=== PATIENT | male | born 1970 | race Two or more races ===

== ENCOUNTER 2016-12-02 14:27 | Inpatient (IN) | payer MEDICAID, OTHER ==
[~2016-12-02] VITALS: Ht 167.6 cm; Wt 78.0 kg
[2016-12-02] VITALS (17 sets, daily range): BP systolic 91–116; BP diastolic 37–53; PULSE 78–97; RESP 13–29; TEMP 97.4–98; O2SAT 78–99
[2016-12-02] MEDS ORDERED: SODIUM CHLOR 0.9% 1000 ML INJ 1,000 ML IV SCH (14:55)
[2016-12-02] MEDS ORDERED: SODIUM CHLORIDE 0.9% FLUSH 10 ML FLUSH IVF PRN (15:00)
[2016-12-02 15:03] LABS: AUTOMATED NEUTROPHIL # 15.8 TH/MM3 (1.8-7.7); BASOPHIL # 0.1 TH/MM3 (0-0.2); BASOPHIL % 0.4 % (0.0-2.0); EOSINOPHIL # 0.2 TH/MM3 (0-0.4); EOSINOPHIL % 1.3 % (0.0-4.0); HEMATOCRIT 22.3 % (39.0-51.0); LYMPH % 7.4 % (9.0-44.0); LYMPHOCYTE # 1.4 TH/MM3 (1.0-4.8); MEAN CELL VOLUME 108.1 FL (80.0-100.0); MEAN CORPUSCULAR HEMOGLOBIN 37.2 PG (27.0-34.0); MEAN CORPUSCULAR HGB CONC 34.3 % (32.0-36.0); MONO % 7.5 % (0.0-8.0); NEUT % 83.4 % (16.0-70.0); PLATELET COUNT 253 TH/MM3 (150-450); RED BLOOD COUNT 2.06 MIL/MM3 (4.50-5.90); RED CELL DISTRIBUTION WIDTH 16.2 % (11.6-17.2); WHITE BLOOD COUNT 18.9 TH/MM3 (4.0-11.0)
--- NOTE | 2016-12-02 15:05 | PD ---
HPI Chief Complaint: GI Complaint Time Seen by Provider: 14:55 Travel History International Travel<30 days: No Contact w/Intl Traveler<30days: No Traveled to known affect area: No History of Present Illness HPI Patient presents with complaints of right red blood per rectum which intermittently has occurred over the last 3 years however the last 3 weeks it is been more persistent. Reports loose stools 6-7 bowel movements per day. Reports approximately a half a cup of bright red blood with each bowel movement. Reports systolic blood pressure dropped 30 points in the last 4 days Denies any nausea or vomiting. Denies any chest pain or shortness breath. States he has not urinated in over a week. Reports he has not seen a physician over 10 years. Admits to 2 alcoholic beverages prior to bed each evening. 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 PFSH Past Medical History Medical History: Denies Significant Hx Tetanus Vaccination: > 5 Years Influenza Vaccination: No Social History Alcohol Use: Yes (1-2 BEERS DAILY) Tobacco Use: Yes (3 CIG DAILY) Substance Use: No Allergies-Medications (Allergen,Severity, Reaction): Coded Allergies: No Known Allergies (Unverified , 12/02/16) Reported Meds & Prescriptions Reported Meds & Active Scripts Active No Active Prescriptions or Reported Medications Review of Systems General / Constitutional: No: Fever Eyes: No: Visual changes HENT: No: Headaches Cardiovascular: No: Chest Pain or Discomfort Respiratory: No: Shortness of Breath Gastrointestinal: Positive: Diarrhea, Hematochezia, No: Abdominal Pain Genitourinary: No: Dysuria Musculoskeletal: No: Pain Skin: No Rash Neurologic: No: Weakness Psychiatric: No: Depression Endocrine: No: Polydipsia Hematologic/Lymphatic: No: Easy Bruising Physical Exam Narrative GENERAL: Well-nourished, well-developed patient. SKIN: Focused skin assessment warm/dry. HEAD: Normocephalic. EYES: No scleral icterus. No injection or drainage. Jaundice NECK: Supple, trachea midline. No JVD or lymphadenopathy. CARDIOVASCULAR: Regular rate and rhythm without murmurs, gallops, or rubs. RESPIRATORY: Breath sounds equal bilaterally. No accessory muscle use. GASTROINTESTINAL: Abdomen soft, distended, no hepatosplenomegaly appreciated questionable fluid wave MUSCULOSKELETAL: No cyanosis, or edema. BACK: Nontender without obvious deformity. No CVA tenderness. Hemoccult positive Data Data Last Documented VS Vital Signs Date Time Temp Pulse Resp B/P Pulse Ox O2 Delivery O2 Flow Rate FiO2 12/02/16 14:55 96 Room Air 12/02/16 14:44 92 109/43 12/02/16 14:30 97.8 16 Orders Complete Blood Count With Diff (12/02/16 14:48) Comprehensive Metabolic Panel (12/02/16 14:48) Urinalysis - C+S If Indicated (12/02/16 14:48) Iv Access Insert/Monitor (12/02/16 14:48) Oximetry (12/02/16 14:48) Lipase (12/02/16 14:48) Ammonia (12/02/16 14:55) Prothrombin Time / Inr (Pt) (12/02/16 14:55) Type And Screen (12/02/16 14:55) Ecg Monitoring (12/02/16 14:55) Urinary Catheter Insert/Apply (12/02/16 14:55) Sodium Chlor 0.9% 1000 Ml Inj (Ns 1000 M (12/02/16 14:55) Sodium Chloride 0.9% Flush (Ns Flush) (12/02/16 15:00) NPO (12/02/16 14:55) Alcohol (Ethanol) (12/02/16 14:55) Potassium Chloride Eff (K-Lyte Cl Eff) (12/03/16 09:00) Ct Abd/Pel W/O Iv Contrast (12/02/16 14:55) Sodium Chlor 0.9% 250 Ml Inj (Ns 250 Ml (12/02/16 15:45) Diphenhydramine (Benadryl) (12/02/16 15:45) Acetaminophen (Tylenol) (12/02/16 15:45) Red Blood Cells (Rbc) (12/02/16 15:42) Blood Product Administration .UPON TRANSFUSION (12/02/16 15:42) Sodium Chlor 0.9% 250 Ml Inj (Ns 250 Ml (12/02/16 15:45) Potassium Chloride (Kcl) (12/02/16 15:45) Ondansetron Inj (Zofran Inj) (12/02/16 16:00) Labs Laboratory Tests Test 12/02/16 12/02/16 12/02/16 14:55 15:05 15:35 White Blood Count 18.9 TH/MM3 Red Blood Count 2.06 MIL/MM3 Hemoglobin 7.7 GM/DL Hematocrit 22.3 % Mean Corpuscular Volume 108.1 FL Mean Corpuscular Hemoglobin 37.2 PG Mean Corpuscular Hemoglobin 34.3 % Concent Red Cell Distribution Width 16.2 % Platelet Count 253 TH/MM3 Mean Platelet Volume 8.2 FL Neutrophils (%) (Auto) 83.4 % Lymphocytes (%) (Auto) 7.4 % Monocytes (%) (Auto) 7.5 % Eosinophils (%) (Auto) 1.3 % Basophils (%) (Auto) 0.4 % Neutrophils # (Auto) 15.8 TH/MM3 Lymphocytes # (Auto) 1.4 TH/MM3 Monocytes # (Auto) 1.4 TH/MM3 Eosinophils # (Auto) 0.2 TH/MM3 Basophils # (Auto) 0.1 TH/MM3 CBC Comment DIFF FINAL Differential Comment Prothrombin Time 20.6 SEC Prothromb Time International 1.8 RATIO Ratio Sodium Level 119 MEQ/L Potassium Level 2.9 MEQ/L Chloride Level 84 MEQ/L Carbon Dioxide Level 19.6 MEQ/L Anion Gap 15 MEQ/L Blood Urea Nitrogen 34 MG/DL Creatinine 3.30 MG/DL Estimat Glomerular Filtration 20 ML/MIN Rate Random Glucose 106 MG/DL Calcium Level 7.2 MG/DL Protein Corrected Calcium 7.8 MG/DL Total Bilirubin 17.9 MG/DL Aspartate Amino Transf 122 U/L (AST/SGOT) Alanine Aminotransferase 48 U/L (ALT/SGPT) Alkaline Phosphatase 134 U/L Total Protein 6.0 GM/DL Albumin 1.6 GM/DL Lipase 552 U/L Ethyl Alcohol Level LESS THAN 3 MG/DL Ammonia 16 MCMOL/L Urine pH 5.5 Urine Protein TRACE mg/dL Urine Glucose (UA) NEG mg/dL Urine Ketones NEG mg/dL Urine Occult Blood LARGE Urine Nitrite NEG Urine Bilirubin LARGE Urine Leukocyte Esterase NEG MDM Medical Decision Making Medical Screen Exam Complete: Yes Emergency Medical Condition: Yes Differential Diagnosis Liver failure, renal failure, GI bleed, small bowel obstruction Narrative Course Assessment and plan discussed with patient at bedside. Initial labs reveal a white count of 18,000 with a hemoglobin and hematocrit of 7.7 and 22.3. Platelet normal at 253 ammonia levels and alcohol levels were normal. Hyponatremia and hypokalemia were noted with renal failure/BUN and creatinine of 34 and 3.3. Potassium was replaced. Patient is receiving normal saline. Unsure of duration of hyponatremia. Ultrasound reveals approximately 350 cc within the bladder. Patient was catheterized with urinary return, well concentrated. Blood transfusion initiated. Physician Communication Physician Communication Case discussed and care transferred to Dr. Etienne Scripts No Active Prescriptions or Reported Meds Jeremiah Thomas MD Dec 02, 2016 15:05
[2016-12-02 15:09] LABS: HEMO FLAGS DIFF FINAL
[2016-12-02 15:17] LABS: INTERNATIONAL NORMALIZED RATIO 1.8 RATIO; PROTHROMBIN TIME - PATIENT 20.6 SEC (9.8-11.6)
[2016-12-02 15:19] LABS: ALT (GPT) 48 U/L (12-78); ANION GAP 15 MEQ/L (5-15); AST (GOT) 122 U/L (15-37); BICARBONATE 19.6 MEQ/L (21.0-32.0); BLOOD UREA NITROGEN 34 MG/DL (7-18); CHLORIDE 84 MEQ/L (98-107); GLOMERULAR FILTRATION RATE 20 ML/MIN (>89)
[2016-12-02 15:21] LABS: POTASSIUM 2.9 MEQ/L (3.5-5.1); SODIUM (NA) 119 MEQ/L (136-145)
[2016-12-02 15:24] LABS: ALKALINE PHOSPHATASE 134 U/L (45-117); CALCIUM-PROTEIN CORRECTED 7.8 MG/DL (8.5-10.1); TOTAL BILIRUBIN ADULT 17.9 MG/DL (0.2-1.0)
[2016-12-02] MEDS ORDERED: diphenhydrAMINE HCL 25 MG CAP PO ONE (15:45)
[2016-12-02] MEDS ORDERED: SODIUM CHLOR 0.9% 250 ML INJ 250 ML IV ONE ×2 (15:45)
[2016-12-02] MEDS ORDERED: POTASSIUM CHLORIDE 20 MEQ CONTROLLED RELEASE TAB PO ONE (15:45)
[2016-12-02] MEDS ORDERED: ACETAMINOPHEN 325 MG TAB PO ONE (15:45)
[2016-12-02 15:46] LABS: BLOOD, URINE LARGE (NEG); GLUCOSE,URINE NEG (NEG); KETONE, URINE NEG (NEG); NITRITE,URINE NEG (NEG); PH, URINE 5.5 (5.0-8.5)
[2016-12-02 15:48] LABS: METHOD OF COLLECTION CLEAN CATCH; URINE COLOR DARK-YELLOW (YELLW/STRAW)
[2016-12-02] MEDS ORDERED: ONDANSETRON HCL 4 MG/2 ML VIAL IV PUSH ONE (16:00)
[2016-12-02 16:04] LABS: COMMENT (UR) CULT NOT INDICATED; CULTURE IF INDICATED CULT NOT INDICATED
--- NOTE | 2016-12-02 16:07 | RADHPO ---
EXAM DATE/TIME: 12/02/2016 15:43 [facility] COMPARISON: No previous studies available for comparison. INDICATIONS : Blood in stool and difficulty urinating for one week wth abdominal pain. ORAL CONTRAST: No oral contrast ingested. RADIATION DOSE: 15.22 CTDIvol (mGy) MEDICAL HISTORY : None SURGICAL HISTORY : None. ENCOUNTER: Initial ACUITY: 1 week PAIN SCALE: 4/10 LOCATION: lower quadrant abdomen/pelvis TECHNIQUE: Volumetric scanning of the abdomen and pelvis was performed. Using automated exposure control and ad justment of the mA and/or kV according to patient size, radiation dose was kept as low as reasonably achievable to obtain optimal diagnostic quality images. FINDINGS: LOWER LUNGS: The visualized lower lungs are clear. LIVER: Heterogeneous appearance. There is no dilation of the biliary tree. Layering small calcified gallsto sheela. Large amount of abdominal ascites. Varices left upper quadrant. SPLEEN: Normal size without lesion. PANCREAS: Within normal limits. KIDNEYS: Normal in size and shape. There is no mass, stone, or hydronephrosis. ADRENAL GLANDS: Within normal limits. VASCULAR: There is no aortic aneurysm. BOWEL/MESENTERY: The stomach, small bowel, and colon demonstrate no acute abnormality. There is no free intraperitone al air or fluid. ABDOMINAL WALL: Within normal limits. RETROPERITONEUM: There is no lymphadenopathy. BLADDER: No wall thickening or mass. Henderson catheter. REPRODUCTIVE: Within normal limits. INGUINAL: There is no lymphadenopathy or hernia. MUSCULOSKELETAL: Within normal limits for patient age. CONCLUSION: 1. Heterogeneous appearance of the liver is nonspecific, could be hepatitis/cirrhosis. Metastatic dis ease can have a similar appearance although felt to be less likely given the other findings. 2. Varices left upper quadrant and large ascites suggest portal hypertension. 3. Cholelithiasis. Reynaldo Zhang MD on December 02, 2016 at 16:00 Board Certified Radiologist. This report was verified electronically.
--- NOTE | 2016-12-02 16:22 | PD ---
HPI Chief Complaint: GI Complaint Time Seen by Provider: 16:08 Travel History International Travel<30 days: No Contact w/Intl Traveler<30days: No Traveled to known affect area: No History of Present Illness HPI This 46-year-old male presented with complaint of decreased urination and blood in the stool. Reportedly been having blood in his stool for 3 years been increasing recently. He was a heavy drinker until about 3 months ago. For the last 3 months he has been having about 2 beers per day. He has been nauseated. He said that he had not urinated for several days prior to coming in. He was seen initially by Dr. Thomas. His hemoglobin is 7.7 with MCV of 108. Sodium is 119 with potassium of 2.9. The urine is 34 with creatinine of 3. Total bilirubin is 17.9 with AST of 122 and ALT of 48. Lipase is 552 and blood transfusion has been ordered. The patient is getting normal saline PFSH Past Medical History Medical History: Denies Significant Hx Tetanus Vaccination: > 5 Years Influenza Vaccination: No Social History Alcohol Use: Yes (1-2 BEERS DAILY) Tobacco Use: Yes (3 CIG DAILY) Substance Use: No Allergies-Medications (Allergen,Severity, Reaction): Coded Allergies: No Known Allergies (Unverified , 12/02/16) Reported Meds & Prescriptions Reported Meds & Active Scripts Active No Active Prescriptions or Reported Medications Physical Exam Narrative GENERAL: Jaundiced male awake and alert SKIN: Focused skin assessment warm/dry. HEAD: Atraumatic. Normocephalic. EYES: Pupils equal and round. No scleral icterus. No injection or drainage. ENT: No nasal bleeding or discharge. Mucous membranes pink and moist. NECK: Trachea midline. No JVD. CARDIOVASCULAR: Regular rate and rhythm. No murmur appreciated. RESPIRATORY: No accessory muscle use. Clear to auscultation. Breath sounds equal bilaterally. GASTROINTESTINAL: Abdomen soft, it is distended and firm. MUSCULOSKELETAL: No obvious deformities. No clubbing. No cyanosis. No edema. NEUROLOGICAL: Awake and alert. No obvious cranial nerve deficits. Motor grossly within normal limits. Normal speech. PSYCHIATRIC: Appropriate mood and affect; insight and judgment normal. Data Data Last Documented VS Vital Signs Date Time Temp Pulse Resp B/P Pulse Ox O2 Delivery O2 Flow Rate FiO2 12/02/16 16:10 78 18 116/44 96 Room Air 12/02/16 14:30 97.8 Orders Complete Blood Count With Diff (12/02/16 14:48) Comprehensive Metabolic Panel (12/02/16 14:48) Urinalysis - C+S If Indicated (12/02/16 14:48) Iv Access Insert/Monitor (12/02/16 14:48) Oximetry (12/02/16 14:48) Lipase (12/02/16 14:48) Ammonia (12/02/16 14:55) Prothrombin Time / Inr (Pt) (12/02/16 14:55) Type And Screen (12/02/16 14:55) Ecg Monitoring (12/02/16 14:55) Urinary Catheter Insert/Apply (12/02/16 14:55) Sodium Chlor 0.9% 1000 Ml Inj (Ns 1000 M (12/02/16 14:55) Sodium Chloride 0.9% Flush (Ns Flush) (12/02/16 15:00) NPO (12/02/16 14:55) Alcohol (Ethanol) (12/02/16 14:55) Potassium Chloride Eff (K-Lyte Cl Eff) (12/03/16 09:00) Ct Abd/Pel W/O Iv Contrast (12/02/16 14:55) Sodium Chlor 0.9% 250 Ml Inj (Ns 250 Ml (12/02/16 15:45) Diphenhydramine (Benadryl) (12/02/16 15:45) Acetaminophen (Tylenol) (12/02/16 15:45) Red Blood Cells (Rbc) (12/02/16 15:42) Blood Product Administration .UPON TRANSFUSION (12/02/16 15:42) Sodium Chlor 0.9% 250 Ml Inj (Ns 250 Ml (12/02/16 15:45) Potassium Chloride (Kcl) (12/02/16 15:45) Ondansetron Inj (Zofran Inj) (12/02/16 16:00) Admit Order (Ed Use Only) (12/02/16 16:33) Labs Laboratory Tests Test 12/02/16 12/02/16 12/02/16 12/02/16 14:45 14:55 15:05 15:35 Blood Type A POSITIVE Antibody Screen NEGATIVE Blood Bank Comment White Blood Count 18.9 TH/MM3 Red Blood Count 2.06 MIL/MM3 Hemoglobin 7.7 GM/DL Hematocrit 22.3 % Mean Corpuscular Volume 108.1 FL Mean Corpuscular Hemoglobin 37.2 PG Mean Corpuscular Hemoglobin 34.3 % Concent Red Cell Distribution Width 16.2 % Platelet Count 253 TH/MM3 Mean Platelet Volume 8.2 FL Neutrophils (%) (Auto) 83.4 % Lymphocytes (%) (Auto) 7.4 % Monocytes (%) (Auto) 7.5 % Eosinophils (%) (Auto) 1.3 % Basophils (%) (Auto) 0.4 % Neutrophils # (Auto) 15.8 TH/MM3 Lymphocytes # (Auto) 1.4 TH/MM3 Monocytes # (Auto) 1.4 TH/MM3 Eosinophils # (Auto) 0.2 TH/MM3 Basophils # (Auto) 0.1 TH/MM3 CBC Comment DIFF FINAL Differential Comment Prothrombin Time 20.6 SEC Prothromb Time International 1.8 RATIO Ratio Sodium Level 119 MEQ/L Potassium Level 2.9 MEQ/L Chloride Level 84 MEQ/L Carbon Dioxide Level 19.6 MEQ/L Anion Gap 15 MEQ/L Blood Urea Nitrogen 34 MG/DL Creatinine 3.30 MG/DL Estimat Glomerular Filtration 20 ML/MIN Rate Random Glucose 106 MG/DL Calcium Level 7.2 MG/DL Protein Corrected Calcium 7.8 MG/DL Total Bilirubin 17.9 MG/DL Aspartate Amino Transf 122 U/L (AST/SGOT) Alanine Aminotransferase 48 U/L (ALT/SGPT) Alkaline Phosphatase 134 U/L Total Protein 6.0 GM/DL Albumin 1.6 GM/DL Lipase 552 U/L Ethyl Alcohol Level LESS THAN 3 MG/DL Ammonia 16 MCMOL/L Urine Collection Type CLEAN CATCH Urine Color DARK-YELLOW Urine Turbidity CLEAR Urine pH 5.5 Urine Specific [place] 1.015 Urine Protein TRACE mg/dL Urine Glucose (UA) NEG mg/dL Urine Ketones NEG mg/dL Urine Occult Blood LARGE Urine Nitrite NEG Urine Bilirubin LARGE Urine Leukocyte Esterase NEG Urine RBC 20-24 /hpf Urine WBC 6-8 /hpf Microscopic Urinalysis Comment CULT NOT INDICATED Test 12/02/16 12/02/16 16:08 16:32 Blood Type A POSITIVE Crossmatch Leukocyte-Reduced Red Blood Cells Blood Bank Comment MDM Medical Decision Making Medical Screen Exam Complete: Yes Emergency Medical Condition: Yes Medical Record Reviewed: Yes Differential Diagnosis Patient has rectal bleeding with laboratory evidence of kidney and liver injury. Differential includes cirrhosis, cancer, Narrative Course Patient is getting a urine of blood. He is getting normal saline. He will be admitted to intensive care Diagnosis Primary Impression: Hepatic failure Qualified Code: K72.90 - Liver failure without hepatic coma, unspecified chronicity Additional Impressions: Kidney injury Qualified Code: S37.009A - Kidney injury, unspecified laterality, initial encounter GI bleed Qualified Code: K92.2 - Gastrointestinal hemorrhage, unspecified gastrointestinal hemorrhage type Scripts No Active Prescriptions or Reported Meds Tong Rucker MD Dec 02, 2016 16:22
[2016-12-02] MEDS ORDERED: LORazepam 1 MG TAB PO PRN (17:00)
[2016-12-02] MEDS ORDERED: FLUMAZENIL 0.5 MG/5 ML VIAL IV PUSH PRN (17:00)
[2016-12-02] MEDS ORDERED: LORazepam 2 MG TAB PO PRN (17:00)
[2016-12-02] MEDS ORDERED: LORazepam 2 MG/ML VIAL IV PUSH PRN ×4 (17:00)
--- NOTE | 2016-12-02 17:10 | HHI.HP ---
[facility] No Primary Care Physician Admission Diagnosis GI BLEED, ANEMIA, LIVER FAILURE, RENAL FAILURE Diagnoses: (1) Kidney injury Diagnosis: Principal (2) Hepatic failure Diagnosis: Principal (3) GI bleed Diagnosis: Principal Chief Complaint: ' I can't urinate'. Travel History International Travel<30 Days: No Contact w/Intl Traveler <30 Da: No Traveled to Known Affected Are: No History of Present Illness patient is a 46 y/o male with history of alcohol abuse who presented to ER stating that he hasn't been able to urinate. he says that he's had this problem over the past few weeks. he's had dribbling. he denies any hematuria or dysuria. he says that he's also had some rectal bleed. it's been going on for few years but it seems that it's getting worse recently. he says that it's a combination of bright and dark red blood.he has mild abdominal pain but his abdomen has been getting more distended. he had some nausea and he says that he had some vomiting last night which was ' bloody at the end of his vomiting'. he feels weak. Review of Systems Constitutional: COMPLAINS OF: Fatigue, DENIES: Fever, Weight loss, Chills, Night Sweats Eyes: DENIES: Blurred vision, Diplopia, Vision loss, Double Vision Ears, nose, mouth, throat: DENIES: Tinnitus, Vertigo, Throat pain, Epistaxis Respiratory: DENIES: Apneas, Cough, Snoring, Wheezing, Hemoptysis, Sputum production, Shortness of breath Cardiovascular: DENIES: Chest pain, Palpitations, Syncope, Dyspnea on Exertion , PND, Lower Extremity Edema, Orthopnea, Claudication Gastrointestinal: COMPLAINS OF: Abdominal pain, Bloody stools, Nausea, Vomiting , DENIES: Black stools, Constipation, Diarrhea, Difficulty Swallowing, Anorexia Genitourinary: DENIES: Urinary frequency, Urgency, Hematuria, Dysuria Musculoskeletal: DENIES: Joint pain, Muscle aches, Stiffness, Joint Swelling Integumentary: DENIES: Rash Neurologic: DENIES: Abnormal gait, Headache, Localized weakness, Paresthesias, Seizures, Speech Problems, Tremor, Poor Balance Psychiatric: DENIES: Anxiety, Confusion, Mood changes, Depression, Hallucinations, Agitation, Suicidal Ideation, Homicidal Ideation, Delusions urinary dribbling. Past Family Social History Past Medical History not significant. Past Surgical History knee surgery. Reported Medications none reported. Allergies: Coded Allergies: No Known Allergies (Unverified , 12/02/16) Active Ordered Medications Current Medications Sodium Chloride (NS 1000 ml Inj) 1,000 ml @ 125 mls/hr Q8H IV Last administered on 12/02/16 15:24; Start 12/02/16 at 14:55; Stop 12/02/16 at 22:54 Sodium Chloride (NS Flush) 2 ml UNSCH PRN IVF FLUSH AFTER USING IV ACCESS; Start 12/02/16 at 15:00 Potassium Bicarb/ Potassium Chloride 50 meq 50 meq DAILY NG ; Start 12/03/16 at 09:00; Stop 12/03/16 at 09:00; Status DC Sodium Chloride (NS 250 ml Inj) 250 ml @ 15 mls/hr ONCE ONCE IV ; Start at 15:45; Stop 12/03/16 at 08:24 Diphenhydramine HCl (Benadryl) 25 mg ONCE ONCE PO ; Start 12/02/16 at 15:45; Stop 12/02/16 at 15:47; Status DC Acetaminophen 650 mg 650 mg ONCE ONCE PO ; Start 12/02/16 at 15:45; Stop at 15:53; Status DC Sodium Chloride (NS 250 ml Inj) 250 ml @ 15 mls/hr ONCE ONCE IV ; Start at 15:45; Stop 12/03/16 at 08:24 Potassium Chloride (KCl) 40 meq ONCE ONCE PO Last administered on 12/02/16 16: 48; Start 12/02/16 at 15:45; Stop 12/02/16 at 15:47; Status DC Ondansetron HCl (Zofran Inj) 4 mg ONCE ONCE IV PUSH Last administered on 16:15; Start 12/02/16 at 16:00; Stop 12/02/16 at 16:01; Status DC Family History diabetes in mother. Social History smokes three cigarettes a day. drinks two beers a day but used to drink heavily till three years ago. no illicit drug abuse. Physical Exam Vital Signs Vital Signs Date Time Temp Pulse Resp B/P Pulse Ox O2 Delivery O2 Flow Rate FiO2 12/02/16 16:10 78 18 116/44 96 Room Air 12/02/16 14:55 96 Room Air 12/02/16 14:44 92 109/43 12/02/16 14:30 97.8 97 16 97/37 99 Physical Exam GENERAL: jaundiced- in no acute distress. SKIN: No rashes, ecchymoses or lesions. Cool and dry. HEAD: Atraumatic. Normocephalic. No temporal or scalp tenderness. EYES: with scleral icterus. ENT: Nose without bleeding, purulent drainage or septal hematoma. Throat without erythema, tonsillar hypertrophy or exudate. Uvula midline. Airway patent. NECK: Trachea midline. No JVD or lymphadenopathy. Supple, nontender, no meningeal signs. CARDIOVASCULAR: Regular rate and rhythm without murmurs, gallops, or rubs. RESPIRATORY: Clear to auscultation. Breath sounds equal bilaterally. No wheezes , rales, or rhonchi. GASTROINTESTINAL: Abdomen soft, mild generalized tenderness, distended. No guarding. MUSCULOSKELETAL: Extremities without clubbing, cyanosis, or edema. No joint tenderness, effusion, or edema noted. No calf tenderness. Negative Homans sign bilaterally. NEUROLOGICAL: Awake and alert. Cranial nerves II through XII intact. Motor and sensory grossly within normal limits. Five out of 5 muscle strength in all muscle groups. Normal speech. Laboratory Laboratory Tests Test 12/02/16 12/02/16 12/02/16 12/02/16 14:45 14:55 15:05 15:35 Blood Type A POSITIVE Antibody Screen NEGATIVE Blood Bank Comment White Blood Count 18.9 Red Blood Count 2.06 Hemoglobin 7.7 Hematocrit 22.3 Mean Corpuscular Volume 108.1 Mean Corpuscular Hemoglobin 37.2 Mean Corpuscular Hemoglobin 34.3 Concent Red Cell Distribution Width 16.2 Platelet Count 253 Mean Platelet Volume 8.2 Neutrophils (%) (Auto) 83.4 Lymphocytes (%) (Auto) 7.4 Monocytes (%) (Auto) 7.5 Eosinophils (%) (Auto) 1.3 Basophils (%) (Auto) 0.4 Neutrophils # (Auto) 15.8 Lymphocytes # (Auto) 1.4 Monocytes # (Auto) 1.4 Eosinophils # (Auto) 0.2 Basophils # (Auto) 0.1 CBC Comment DIFF FINAL Differential Comment Prothrombin Time 20.6 Prothromb Time International 1.8 Ratio Sodium Level 119 Potassium Level 2.9 Chloride Level 84 Carbon Dioxide Level 19.6 Anion Gap 15 Blood Urea Nitrogen 34 Creatinine 3.30 Estimat Glomerular Filtration 20 Rate Random Glucose 106 Calcium Level 7.2 Protein Corrected Calcium 7.8 Total Bilirubin 17.9 Aspartate Amino Transf 122 (AST/SGOT) Alanine Aminotransferase 48 (ALT/SGPT) Alkaline Phosphatase 134 Total Protein 6.0 Albumin 1.6 Lipase 552 Ethyl Alcohol Level LESS THAN 3 Ammonia 16 Urine Collection Type CLEAN CATCH Urine Color DARK-YELLOW Urine Turbidity CLEAR Urine pH 5.5 Urine Specific [place] 1.015 Urine Protein TRACE Urine Glucose (UA) NEG Urine Ketones NEG Urine Occult Blood LARGE Urine Nitrite NEG Urine Bilirubin LARGE Urine Leukocyte Esterase NEG Urine RBC 20-24 Urine WBC 6-8 Microscopic Urinalysis Comment CULT NOT INDICATED Test 12/02/16 12/02/16 16:08 16:32 Blood Type A POSITIVE Crossmatch Leukocyte-Reduced Red Blood Cells Blood Bank Comment Result Diagram: 12/02/16 1455 12/02/16 1455 Imaging Last Impressions Abdomen/Pelvis CT 12/02/16 1455 Signed Impressions: Service Date/Time: Friday, December 02, 2016 15:43 - CONCLUSION: 1. Heterogeneous appearance of the liver is nonspecific, could be hepatitis/cirrhosis. Metastatic disease can have a similar appearance although felt to be less likely given the other findings. 2. Varices left upper quadrant and large ascites suggest portal hypertension. 3. Cholelithiasis. Reynaldo Zhang MD Assessment and Plan Assessment and Plan A/P -alcohol-induced cirrhosis with acute kidney injury - possible hepatorenal syndrome start IV fluid- foreman in place- will check kidney and liver sonogram. check the hepatitis panel consult GI and nephrology. -hyponatremia due to cirrhosis/kidney injury and alcohol abuse - start IV NS and close monitoring of the sodium level- nephrology consult as noted above. -hypokalemia; received a dose of potassium in ER- will repeat BMP later this evening- cautious potassium replacement in light of kidney injury. -rectal bleed with cirrhosis - close monitoring of H/H- start PPI- GI consult -leukocytosis with worsening ascites- will start IV Rocephin empirically- awaiting GI evaluation - coagulopathy due to cirrhosis- will monitor closely -DVT prophylaxis with SCD's will monitor closely in ICU. critical care time 40 min. Discussed Condition With ER physician and the patient. Physician Certification 2 Midnight Certification Type: Admission for Inpatient Services Order for Inpatient Services The services are ordered in accordance with Medicare regulations or non- Medicare payer requirements, as applicable. In the case of services not specified as inpatient-only, they are appropriately provided as inpatient services in accordance with the 2-midnight benchmark. Estimated LOS (days): 3 days is the estimated time the patient will need to remain in the hospital, assuming treatment plan goals are met and no additional complications. Post-Hospital Plan: Home Problem Qualifiers (1) Kidney injury: Qualified Code: S37.009A - Kidney injury, unspecified laterality, initial encounter (2) Hepatic failure: Qualified Code: K72.90 - Liver failure without hepatic coma, unspecified chronicity (3) GI bleed: Qualified Code: K92.2 - Gastrointestinal hemorrhage, unspecified gastrointestinal hemorrhage type Lillian Guevara MD Dec 02, 2016 17:10
[2016-12-02] MEDS: SODIUM CHLOR 0.9% 1000 ML INJ 1,000 ML IV SCH (17:36)
--- NOTE | 2016-12-02 17:42 | RADHPO ---
EXAM DATE/TIME: 12/02/2016 17:33 [facility] COMPARISON: No previous studies available for comparison. INDICATIONS : Short of breath MEDICAL HISTORY : None. SURGICAL HISTORY : None. ENCOUNTER: Initial ACUITY: 1 week PAIN SCORE: 0/10 LOCATION: Bilateral chest FINDINGS: A single view of the chest demonstrates the lungs to be symmetrically aerated without evidence of mas s, infiltrate or effusion. The cardiomediastinal contours are unremarkable. Osseous structures are intact. CONCLUSION: No acute disease. Reynaldo Zhang MD on December 02, 2016 at 17:40 Board Certified Radiologist. This report was verified electronically.
[2016-12-02] MEDS: PANTOPRAZOLE SODIUM 40 MG VIAL IV PUSH SCH (17:55)
[2016-12-02] MEDS: cefTRIAXone INJ 1,000 MG in SODIUM CHLORIDE 0.9% INJ 100 ML IV SCH (17:56)
--- NOTE | 2016-12-02 18:18 | RADHPO ---
EXAM DATE/TIME: 12/02/2016 17:07 [facility] COMPARISON: CT ABDOMEN & PELVIS W/O CONTRAST, December 02, 2016, 15:43. INDICATIONS : Abdomen pain. MEDICAL HISTORY : Abdomen pain. Nausea. ETOH use daily. Melena. SURGICAL HISTORY : Right knee surgery. ENCOUNTER: Initial ACUITY: 2 weeks PAIN SCORE: 4/10 LOCATION: Abdomen. MEASUREMENTS: LIVER: 21.3 cm length COMMON DUCT: 6 mm RIGHT KIDNEY: 12.4 x 5.5 x 7.4 cm LEFT KIDNEY: 11.0 x 5.6 x 5.8 cm SPLEEN: 9.4 cm length AORTA: 2.1cm maximal FINDINGS: LIVER: Enlarged Heterogeneous without focal lesion or ductal dilatation. Biphasic flow. Large ascites. COMMON DUCT: No intraluminal mass or stone visualized. GALLBLADDER: Contains no stones, demonstrates no wall thickening or pericholecystic fluid. There is increased echo genicity along the gallbladder fundus likely related to tumefactive sludge. PANCREAS: The visualized portions are within normal limits. RIGHT KIDNEY: No hydronephrosis, stone or mass. LEFT KIDNEY: No hydronephrosis, stone or mass. SPLEEN: No focal lesion. AORTA: Non aneurysmal. IVC: Within normal limits. CONCLUSION: 1. Heterogeneous cirrhotic appearing liver. 2. Ascites with portal hypertension. 3. Suspected tumefactive sludge in the gallbladder fundus Reynaldo Zhang MD on December 02, 2016 at 18:12 Board Certified Radiologist. This report was verified electronically.
--- NOTE | 2016-12-02 19:38 | PD.CONS ---
HPI Service Nephrology Consult Requested By Reason for Consult Acute kidney injury, hyponatremia, hypokalemia. Primary Care Physician No Primary Care Physician History of Present Illness Mr. Walker is a 46 year old male who came to the ER because he has not passed any urine for about a week. He admits to have had nausea and vomiting along with diarrhea for about 10 days. He does report that he has been trying to eat normally. He noticed abdominal distension about 10 days ago. In addition , he has had melena and hematochezia. No previous labs are available. In the ER he was noticed to be deeply jaundiced. He is in renal failure, has serum Na of 119, also has hypokalemia with serum potassium of 2.9. A Henderson catheter was placed, with output of minimal urine. Urine is dark in color. Patient apparently has been taking 2 Advils/day. Review of Systems Constitutional: COMPLAINS OF: Fatigue, DENIES: Fever Eyes: DENIES: Blurred vision Respiratory: DENIES: Cough, Wheezing, Hemoptysis Cardiovascular: DENIES: Chest pain, Palpitations, Syncope Gastrointestinal: COMPLAINS OF: Black stools, Bloody stools, Diarrhea, Nausea, Vomiting, DENIES: Abdominal pain Musculoskeletal: COMPLAINS OF: Joint pain, Muscle aches Past Family Social History Allergies: Coded Allergies: No Known Allergies (Unverified , 12/02/16) Past Medical History History of ETOH abuse: used to drink heavily until about 3 years ago, now drinks about 2 beers/day. Reported Medications none at home, except for Ibuprofen Active Ordered Medications Current Medications Medications (Trade) Dose Ordered Sig/Bong Route Start Time Stop Time Status Last Admin Sodium Chloride 2 ml 2 ml UNSCH PRN IVF 12/02/16 15:00 Sodium Chloride 250 ml @ 15 mls/hr ONCE ONCE IV 12/02/16 15:45 12/03/16 08:24 12/02/16 18:24 (NS 250 ml Inj) 250 ml @ 15 mls/hr ONCE ONCE IV 12/02/16 15:45 12/03/16 08:24 (Romazicon Inj) 0.2 mg Q1M PRN IV PUSH 12/02/16 17:00 (Ativan) 1 mg Q4H PRN PO 12/02/16 17:00 (Ativan Inj) 1 mg Q4H PRN IV PUSH 12/02/16 17:00 (Ativan) 2 mg Q2H PRN PO 12/02/16 17:00 (Ativan Inj) 2 mg Q2H PRN IV PUSH 12/02/16 17:00 (Ativan Inj) 2 mg Q1H PRN IV PUSH 12/02/16 17:00 Lorazepam 2 mg 2 mg Q15M PRN IV PUSH 12/02/16 17:00 Sodium Chloride 1,000 ml @ 100 mls/hr Q10H IV 12/02/16 17:00 12/02/16 17:36 (Thiamine Inj/NS Inj) 101 ml @ 101 mls/hr DAILY IV 12/03/16 09:00 Pantoprazole Sodium 40 mg 40 mg Q24H IV PUSH 12/02/16 18:00 12/02/16 17:55 (Rocephin Inj/NS Inj) 100 ml @ 200 mls/hr Q24H IV 12/02/16 18:00 12/02/16 17:56 Family History non contributory, reviewed. Social History lives with step father. Smokes 2 cigarettes/day. ETOH usage as mentioned above. Physical Exam Vital Signs Vital Signs Date Time Temp Pulse Resp B/P Pulse Ox O2 Delivery O2 Flow Rate FiO2 12/02/16 18:59 97.4 80 16 106/42 97 Room Air 12/02/16 18:43 97.5 81 16 108/40 98 Room Air 12/02/16 18:25 97.4 78 16 107/42 96 Room Air 12/02/16 18:12 83 16 110/48 95 Room Air 12/02/16 17:22 83 16 106/50 99 Room Air 12/02/16 16:10 78 18 116/44 96 Room Air 12/02/16 14:55 96 Room Air 12/02/16 14:44 92 109/43 12/02/16 14:30 97.8 97 16 97/37 99 Physical Exam GENERAL: deeply jaundiced. Alert, awake. SKIN: Warm and dry. HEAD: Normocephalic. EYES: scleral icterus. No injection or drainage. NECK: Supple, trachea midline. No JVD or lymphadenopathy. CARDIOVASCULAR: Regular rate and rhythm without murmurs, gallops, or rubs. RESPIRATORY: Breath sounds equal bilaterally. No accessory muscle use. GASTROINTESTINAL: abdomen is distended with tense ascites. Non tender MUSCULOSKELETAL: No cyanosis, or edema. BACK: Nontender without obvious deformity. No CVA tenderness. Laboratory Laboratory Tests Test 12/02/16 12/02/16 12/02/16 12/02/16 14:45 14:55 15:05 15:35 Blood Type A POSITIVE Antibody Screen NEGATIVE Blood Bank Comment White Blood Count 18.9 Red Blood Count 2.06 Hemoglobin 7.7 Hematocrit 22.3 Mean Corpuscular Volume 108.1 Mean Corpuscular Hemoglobin 37.2 Mean Corpuscular Hemoglobin 34.3 Concent Red Cell Distribution Width 16.2 Platelet Count 253 Mean Platelet Volume 8.2 Neutrophils (%) (Auto) 83.4 Lymphocytes (%) (Auto) 7.4 Monocytes (%) (Auto) 7.5 Eosinophils (%) (Auto) 1.3 Basophils (%) (Auto) 0.4 Neutrophils # (Auto) 15.8 Lymphocytes # (Auto) 1.4 Monocytes # (Auto) 1.4 Eosinophils # (Auto) 0.2 Basophils # (Auto) 0.1 CBC Comment DIFF FINAL Differential Comment Prothrombin Time 20.6 Prothromb Time International 1.8 Ratio Sodium Level 119 Potassium Level 2.9 Chloride Level 84 Carbon Dioxide Level 19.6 Anion Gap 15 Blood Urea Nitrogen 34 Creatinine 3.30 Estimat Glomerular Filtration 20 Rate Random Glucose 106 Calcium Level 7.2 Protein Corrected Calcium 7.8 Total Bilirubin 17.9 Aspartate Amino Transf 122 (AST/SGOT) Alanine Aminotransferase 48 (ALT/SGPT) Alkaline Phosphatase 134 Total Protein 6.0 Albumin 1.6 Lipase 552 Ethyl Alcohol Level LESS THAN 3 Ammonia 16 Urine Collection Type CLEAN CATCH Urine Color DARK-YELLOW Urine Turbidity CLEAR Urine pH 5.5 Urine Specific [place] 1.015 Urine Protein TRACE Urine Glucose (UA) NEG Urine Ketones NEG Urine Occult Blood LARGE Urine Nitrite NEG Urine Bilirubin LARGE Urine Leukocyte Esterase NEG Urine RBC 20-24 Urine WBC 6-8 Microscopic Urinalysis Comment CULT NOT INDICATED Test 12/02/16 12/02/16 16:08 16:32 Blood Type A POSITIVE Crossmatch Leukocyte-Reduced Red Blood Cells Blood Bank Comment Result Diagram: 12/02/16 7881 12/02/16 6139 Assessment and Plan Problem List: (1) Acute kidney injury Plan: Differential diagnosis includes pre-renal azotemia due to vomiting and diarrhea. Ibuprofen also could have contributed to it. Hepatorenal syndrome will have to be considered, it is a diagnosis of exclusion. At this time, I will order urine electrolytes to calculate FeNa. Continue 0.9%NS. Avoid nephrotoxic agents. Add Albumin. Consider therapeutic paracentesis with albumin infusion. If no improvement in renal function after administration of crystalloids and albumin, hepatorenal syndrome will have to be considered. In that situation, his prognosis is very poor. (2) Hypo-osmolality and hyponatremia Plan: Due to non osmotic release of ADH seen in liver failure patients. Hypovolemic hyponatremia due to vomiting and diarrhea should be considered. Also , nausea itself is a powerful stimulator of ADH. Continue isotonic fluids and monitor. Hyponatremia signifies poor prognosis in cirrhosis. (3) Hypokalemia Plan: Patient appears to have metabolic acidosis. Hypokalemia in the presence of acidosis reflects profound body depletion of potassium stores. Continue to replace. Monitor closely. (4) Liver failure Plan: Due to Alcohol abuse. GI to evaluate. May also have to consider acute alcoholic hepatitis. However he has stigmata of chronic liver disease: spider angioma, varices seen on CT, signs of portal hypertension. Also will have to consider choledocholithiasis as lipase is high along with alkaline phosphatase. (5) GI bleed Plan: GI to evaluate. Monitor Hemoglobin. Could be variceal, from ulcer or gastritis/esophagitis. (6) Anemia Plan: due to GI bleeding. High MCV due to alcohol abuse. Transfusion ordered. (7) Leukocytosis Plan: Unclear etiology. Leukemoid reaction? Assessment and Plan Thanks for the consult. I will follow. Problem Qualifiers (1) GI bleed: Qualified Code: K92.2 - Gastrointestinal hemorrhage, unspecified gastrointestinal hemorrhage type Eliseo Rodriguez MD Dec 02, 2016 19:38
[2016-12-02] MEDS ORDERED: CHLORHEXIDINE GLUCONATE 2 % 1 PACK (2 CLOTHS)(extra cloths) TOPICAL PRN (20:45)
[2016-12-02 21:20] LABS: HEMATOCRIT 25.1 % (39.0-51.0)
[2016-12-02 21:45] LABS: POTASSIUM 3.2 MEQ/L (3.5-5.1)
[2016-12-02 22:23] LABS: CALCIUM-PROTEIN CORRECTED 7.3 MG/DL (8.5-10.1)
[2016-12-02] MEDS: CHLORHEXIDINE GLUCONATE 2 % 1 PACK (2 CLOTHS)(taper/protocol) TOPICAL SCH (22:32)
[2016-12-02] MEDS: ALBUMIN HUMAN 25% 25 GM/100 ML BAGP IV SCH (22:32)
[2016-12-03] VITALS (33 sets, daily range): BP systolic 92–134; BP diastolic 32–55; PULSE 84–93; RESP 13–30; TEMP 97.6–98.9; O2SAT 96–98
[2016-12-03] MEDS: SODIUM CHLOR 0.9% 1000 ML INJ 1,000 ML IV SCH (03:32)
[2016-12-03 04:02] LABS: HEMATOCRIT 21.7 % (39.0-51.0)
[2016-12-03 04:39] LABS: BICARBONATE 16.9 MEQ/L (21.0-32.0); MAGNESIUM 2.2 MG/DL (1.5-2.5); TOTAL BILIRUBIN ADULT 19.4 MG/DL (0.2-1.0)
[2016-12-03 04:43] LABS: CALCIUM-PROTEIN CORRECTED 7.7 MG/DL (8.5-10.1); POTASSIUM 2.9 MEQ/L (3.5-5.1)
[2016-12-03] MEDS ORDERED: SODIUM CHLOR 0.9% 250 ML INJ 250 ML IV ONE (05:00)
[2016-12-03] MEDS ORDERED: POTASSIUM CHLORIDE 10 MEQ CONTROLLED RELEASE TAB PO ONE (05:00)
[2016-12-03 08:10] LABS: BASOPHIL # 0.1 TH/MM3 (0-0.2); BASOPHIL % 0.7 % (0.0-2.0); EOSINOPHIL # 0.2 TH/MM3 (0-0.4); EOSINOPHIL % 1.9 % (0.0-4.0); LYMPH % 8.3 % (9.0-44.0); MEAN CELL VOLUME 106.6 FL (80.0-100.0); MEAN CORPUSCULAR HEMOGLOBIN 36.9 PG (27.0-34.0); MEAN CORPUSCULAR HGB CONC 34.7 % (32.0-36.0); MONO % 9.8 % (0.0-8.0); NEUT % 79.3 % (16.0-70.0); PLATELET COUNT 171 TH/MM3 (150-450); RED BLOOD COUNT 1.93 MIL/MM3 (4.50-5.90); RED CELL DISTRIBUTION WIDTH 17.8 % (11.6-17.2); WHITE BLOOD COUNT 12.5 TH/MM3 (4.0-11.0)
[2016-12-03 08:25] LABS: HEMO FLAGS AUTO DIFF
[2016-12-03 08:28] LABS: BICARBONATE 15.9 MEQ/L (21.0-32.0); POTASSIUM 3.1 MEQ/L (3.5-5.1)
[2016-12-03 08:40] LABS: CALCIUM-PROTEIN CORRECTED 7.5 MG/DL (8.5-10.1); HEMATOCRIT 20.5 % (39.0-51.0)
[2016-12-03] MEDS ORDERED: POTASSIUM CHLORIDE 25 MEQ EFFERVESCENT TAB NG SCH (09:00)
[2016-12-03 09:18] LABS: SCAN/DIFF AUTO DIFF CONFIRMED
--- NOTE | 2016-12-03 09:33 | HHI.NPPN ---
Subjective General Problems: Anemia, Hypotension, Mebatolic Acidosis Renal Failure: Acute Interval History He is awake. Renal function is slightly better. States he had 9 loose bowel movements since last evening. Receiving blood transfusion today. (Breanne Akins) Review of Systems General Constitutional: Fatigue (Breanne Akins) Gastrointestinal Gastrointestinal: Abdominal Pain, Nausea & Vomiting, Diarrhea, Blood/Tarry Stools (Breanne Akins) Psych Psych: Depression (Breanne Akins) Objective Data Data 12/02/16 12/03/16 19:00 07:00 Intake Total 25 ml 3294 ml Output Total 428 ml Balance 25 ml 2866 ml Intake Oral 25 ml 2040 ml IV Total 954 ml Albumin 50 ml Packed Cells 250 ml Output Urine Total 425 ml Stool Total 3 ml Vital Signs Date Time Temp Pulse Resp B/P Pulse Ox O2 Delivery O2 Flow Rate FiO2 12/03/16 08:15 97.7 93 16 110/55 98 12/03/16 08:00 98.5 84 22 95/46 98 12/03/16 06:00 86 12/03/16 04:00 86 12/03/16 03:03 90 12/03/16 03:03 90 18 92/41 96 12/03/16 03:00 88 12/03/16 02:03 88 16 112/51 12/03/16 02:00 86 12/03/16 01:03 86 22 109/53 12/03/16 00:03 97.7 90 25 118/54 97 12/03/16 00:00 88 12/02/16 23:25 98.0 92 14 91/47 96 12/02/16 23:00 92 29 112/44 95 12/02/16 22:03 88 13 107/45 96 12/02/16 22:00 88 12/02/16 21:03 98.0 92 16 91/41 96 12/02/16 20:00 82 12/02/16 19:53 80 12/02/16 19:53 98.0 80 17 92/53 98 12/02/16 19:49 98.0 83 20 109/51 98 12/02/16 18:59 97.4 80 16 106/42 97 Room Air 12/02/16 18:43 97.5 81 16 108/40 98 Room Air 12/02/16 18:25 97.4 78 16 107/42 96 Room Air 12/02/16 18:12 83 16 110/48 95 Room Air 12/02/16 17:22 83 16 106/50 99 Room Air 12/02/16 16:10 78 18 116/44 96 Room Air 12/02/16 14:55 96 Room Air 12/02/16 14:44 92 109/43 12/02/16 14:30 97.8 97 16 97/37 99 (Breanne Akins) -: 12/03/16 0750 12/03/16 0750 Imaging Last 72 hours Impressions Abdomen/Pelvis CT 12/02/16 1455 Signed Impressions: Service Date/Time: Friday, December 02, 2016 15:43 - CONCLUSION: 1. Heterogeneous appearance of the liver is nonspecific, could be hepatitis/cirrhosis. Metastatic disease can have a similar appearance although felt to be less likely given the other findings. 2. Varices left upper quadrant and large ascites suggest portal hypertension. 3. Cholelithiasis. Reynaldo Zhang MD Chest X-Ray 12/02/16 0000 Signed Impressions: Service Date/Time: Friday, December 02, 2016 17:33 - CONCLUSION: No acute disease. Reynaldo Zhang MD Abdomen Ultrasound 12/02/16 0000 Signed Impressions: Service Date/Time: Friday, December 02, 2016 17:07 - CONCLUSION: 1. Heterogeneous cirrhotic appearing liver. 2. Ascites with portal hypertension. 3. Suspected tumefactive sludge in the gallbladder fundus Reynaldo Zhang MD Tubes & Lines: Henderson (Breanne Akins) Physical Exam General Appearance: No Acute Distress, Comfortable (Breanne Akins) Eyes Eye Exam: Jaundice (Breanne Akins) Throat Throat Remarks dry mucous membranes (Breanne Akins) Pulmonary Resp Exam: Clear Bilaterally, Breath Sounds Equal (Breanne Akins) Cardiology CV Exam: Regular, Normal Sinus Rhythm (Breanne Akins) Gastrointestinal/Abdomen GI Exam: Non-Tender, Bowel Sounds Present, Positive Bowel Movement, Distended GI Remarks firm, + ascites (Tashi,Breanne B. REMOTE INPATIENT CODER) Genitourinary Remarks dark urine (Breanne Akins B. REMOTE INPATIENT CODER) Musculoskeletal MS Exam: Normal Tone (Breanne Akins. REMOTE INPATIENT CODER) Integumentary Skin Exam: Clear, Warm, Dry, Intact, Jaundice (Breanne Akins B. REMOTE INPATIENT CODER) Extremeties Extremities Exam: No Edema, Pedal Pulses Palpable (Breanne Akins. REMOTE INPATIENT CODER) Neurologic Neuro Exam: Alert, Awake, Oriented, Speech Clear, Moving All Extremities ( Breanne Akins. REMOTE INPATIENT CODER) Psychiatric Psych Exam: Appropriate Responses (Breanne Akins. REMOTE INPATIENT CODER) Assessment/Plan Discussed Condition With: Patient Assessment Summary: ANA PAULA/Acute Renal Failure, Dehydration Electrolyte Assessment: Hypocalcemia, Hypokalemia, Hyponatremia, Metabolic Acidosis Problem List: (1) Acute kidney injury Plan: Oliguric renal failure with no baseline labs for comparison. FeNa low suggesting prerenal etiology of renal failure, possibly from vomiting and diarrhea. Creatinine is slightly better today Continue hydration with 0.9%NS. consider adding bicarb to fluids. Continue albumin Avoid nephrotoxic agents. Monitor renal function daily BP borderline low, maintain MAP > 65mmHg If no improvement in renal function after administration of crystalloids and albumin, hepatorenal syndrome will have to be considered. In that situation, his prognosis is very poor. (2) Hypo-osmolality and hyponatremia Plan: Sodium level is fluctuant but slightly better, continue IVF and follow Low sodium level may be due to non osmotic release of ADH seen in liver failure patients. Hypovolemic hyponatremia due to vomiting and diarrhea should be considered. Also , nausea itself is a powerful stimulator of ADH. Hyponatremia signifies poor prognosis in cirrhosis. (3) Hypokalemia Plan: Continue to replace IV/PO encouraged oral intake. Patient has metabolic acidosis. Hypokalemia in the presence of acidosis reflects profound body depletion of potassium stores. (4) Liver failure Plan: Due to Alcohol abuse. GI to follow. May have acute alcoholic hepatitis; he has varices seen on CT and signs of portal hypertension. Also has cholelithiasis on imaging. (5) GI bleed Plan: GI to follow, being transfused currently. Monitor Hemoglobin. (6) Anemia Plan: macrocytic anemia, may be due to ETOH abuse; Thiamine ordered also suspected GIB, GI to follow, may need colonoscopy/endoscopy 2 units PRBC ordered and currently transfusing (7) Leukocytosis Plan: Does not appear infectious, ? leukemoid reaction WBC improving with hydration, monitor (8) Hypocalcemia Plan: may be due to nutritional deficiency check vitamin D level (Breanne Akins) Plan patient was seen and examined. Change IVF to bicarbonate drip as ordered. Replace potassium. Serum Na is slightly better. Renal function is stable. Urine output is better. FeNa is low, this is either pre-renal but cannot rule out hepatorenal syndrome. Consider paracentesis. Consider transfer to [facility] ([facility]) (Eliseo Rodriguez MD) Problem Qualifiers (1) GI bleed: Qualified Code: K92.2 - Gastrointestinal hemorrhage, unspecified gastrointestinal hemorrhage type Breanne Akins Dec 03, 2016 09:33 Eliseo Rodriguez MD Dec 03, 2016 10:30
[2016-12-03] MEDS: ALBUMIN HUMAN 25% 25 GM/100 ML BAGP IV SCH ×2 (09:35→20:30)
[2016-12-03] MEDS ORDERED: POTASSIUM CHLOR 20 MEQ PREMIX 100 ML IV ONE (09:45)
--- NOTE | 2016-12-03 09:59 | HHI.PR ---
Subjective Remarks in no acute distress. still with some rectal bleed. blood transfusion in progress. says that he's feeling better now with improved dizziness. had some nausea earlier which has resolved. no fever. Objective Vitals Vital Signs Date Time Temp Pulse Resp B/P Pulse Ox O2 Delivery O2 Flow Rate FiO2 12/03/16 08:15 97.7 93 16 110/55 98 12/03/16 08:00 98.5 84 22 95/46 98 12/03/16 06:00 86 12/03/16 04:00 86 12/03/16 03:03 90 12/03/16 03:03 90 18 92/41 96 12/03/16 03:00 88 12/03/16 02:03 88 16 112/51 12/03/16 02:00 86 12/03/16 01:03 86 22 109/53 12/03/16 00:03 97.7 90 25 118/54 97 12/03/16 00:00 88 12/02/16 23:25 98.0 92 14 91/47 96 12/02/16 23:00 92 29 112/44 95 12/02/16 22:03 88 13 107/45 96 12/02/16 22:00 88 12/02/16 21:03 98.0 92 16 91/41 96 12/02/16 20:00 82 12/02/16 19:53 80 12/02/16 19:53 98.0 80 17 92/53 98 12/02/16 19:49 98.0 83 20 109/51 98 12/02/16 18:59 97.4 80 16 106/42 97 Room Air 12/02/16 18:43 97.5 81 16 108/40 98 Room Air 12/02/16 18:25 97.4 78 16 107/42 96 Room Air 12/02/16 18:12 83 16 110/48 95 Room Air 12/02/16 17:22 83 16 106/50 99 Room Air 12/02/16 16:10 78 18 116/44 96 Room Air 12/02/16 14:55 96 Room Air 12/02/16 14:44 92 109/43 12/02/16 14:30 97.8 97 16 97/37 99 I/O 12/02/16 12/02/16 12/02/16 12/03/16 12/03/1612/03/17 07:00 15:00 23:00 07:00 15:00 23:00 Intake Total 1280 ml 2039 ml Output Total 151 ml 277 ml Balance 1129 ml 1762 ml Intake Oral 625 ml 1440 ml IV Total 355 ml 599 ml Albumin 50 ml Packed Cells 250 ml Output Urine Total 150 ml 275 ml Stool Total 1 ml 2 ml Result Diagram: 12/03/16 0750 12/03/16 0750 Imaging Last Impressions Abdomen/Pelvis CT 12/02/16 1455 Signed Impressions: Service Date/Time: Friday, December 02, 2016 15:43 - CONCLUSION: 1. Heterogeneous appearance of the liver is nonspecific, could be hepatitis/cirrhosis. Metastatic disease can have a similar appearance although felt to be less likely given the other findings. 2. Varices left upper quadrant and large ascites suggest portal hypertension. 3. Cholelithiasis. Reynaldo Zhang MD Chest X-Ray 12/02/16 0000 Signed Impressions: Service Date/Time: Friday, December 02, 2016 17:33 - CONCLUSION: No acute disease. Reynaldo Zhang MD Abdomen Ultrasound 12/02/16 0000 Signed Impressions: Service Date/Time: Friday, December 02, 2016 17:07 - CONCLUSION: 1. Heterogeneous cirrhotic appearing liver. 2. Ascites with portal hypertension. 3. Suspected tumefactive sludge in the gallbladder fundus Reynaldo Zhang MD Objective Remarks GENERAL: jaundiced- in no acute distress. CARDIOVASCULAR: Regular rate and regular rhythm without murmurs, gallops, or rubs. RESPIRATORY: Clear to auscultation. Breath sounds equal bilaterally. No wheezes , rales, or rhonchi. GASTROINTESTINAL: Abdomen soft, non-tender, distended. Normal, active bowel sounds MUSCULOSKELETAL: Extremities with bilateral pedal edema. NEURO: Alert & Oriented x4 to person, place, time, situation. Moves all ext x4 Procedures none Medications and IVs Current Medications Sodium Chloride (NS 1000 ml Inj) 1,000 ml @ 125 mls/hr Q8H IV Last administered on 12/02/16t 15:24; Start 12/02/16 at 14:55; Stop 12/02/16 at 17:01; Status DC Sodium Chloride (NS Flush) 2 ml UNSCH PRN IVF FLUSH AFTER USING IV ACCESS; Start 12/02/16 at 15:00 Potassium Bicarb/ Potassium Chloride 50 meq 50 meq DAILY NG ; Start 12/03/16 at 09:00; Stop 12/03/16 at 09:00; Status DC Sodium Chloride (NS 250 ml Inj) 250 ml @ 15 mls/hr ONCE ONCE IV Last administered on 12/02/16 18:24; Start 12/02/16 at 15:45; Stop 12/03/16 at 08:24; Status DC Diphenhydramine HCl (Benadryl) 25 mg ONCE ONCE PO Last administered on 16:56; Start 12/02/16 at 15:45; Stop 12/02/16 at 15:47; Status DC Acetaminophen 650 mg 650 mg ONCE ONCE PO ; Start 12/02/16 at 15:45; Stop at 15:53; Status DC Sodium Chloride (NS 250 ml Inj) 250 ml @ 15 mls/hr ONCE ONCE IV ; Start at 15:45; Stop 12/03/16 at 08:24; Status DC Potassium Chloride (KCl) 40 meq ONCE ONCE PO Last administered on 12/02/16 16: 48; Start 12/02/16 at 15:45; Stop 12/02/16 at 15:47; Status DC Ondansetron HCl (Zofran Inj) 4 mg ONCE ONCE IV PUSH Last administered on 16:15; Start 12/02/16 at 16:00; Stop 12/02/16 at 16:01; Status DC Flumazenil (Romazicon Inj) 0.2 mg Q1M PRN IV PUSH SEE LABEL COMMENTS; Start 12/02/16 at 17:00 Lorazepam (Ativan) 1 mg Q4H PRN PO CIWA 8 - 10; Start 12/02/16 at 17:00 Lorazepam (Ativan Inj) 1 mg Q4H PRN IV PUSH CIWA 8 - 10; Start 12/02/16 at 17:00 Lorazepam (Ativan) 2 mg Q2H PRN PO CIWA 11-14; Start 12/02/16 at 17:00 Lorazepam (Ativan Inj) 2 mg Q2H PRN IV PUSH CIWA 11-14; Start 12/02/16 at 17:00 Lorazepam (Ativan Inj) 2 mg Q1H PRN IV PUSH CIWA 15-20; Start 12/02/16 at 17:00 Lorazepam 2 mg 2 mg Q15M PRN IV PUSH CIWA > 20; Start 12/02/16 at 17:00 Sodium Chloride 1,000 ml @ 100 mls/hr Q10H IV Last administered on 12/03/16 03 :32; Start 12/02/16 at 17:00 Thiamine HCl/ Sodium Chloride (Thiamine Inj/NS Inj) 101 ml @ 101 mls/hr DAILY IV ; Start 12/03/16 at 09:00 Pantoprazole Sodium 40 mg 40 mg Q24H IV PUSH Last administered on 12/02/16 17: 55; Start 12/02/16 at 18:00 Ceftriaxone Sodium/Sodium Chloride (Rocephin Inj/NS Inj) 100 ml @ 200 mls/hr Q24H IV Last administered on 12/02/16 17:56; Start 12/02/16 at 18:00 Albumin Human (Albumin 25% Inj) 25 gm Q12H IV Last administered on 12/02/16 22: 32; Start 12/02/16 at 21:00 Miscellaneous Information Patient in critical care unit? Ass... [id number] .[id number] ; Start 12/02/16 at 20:45 Chlorhexidine Gluconate (Chlorhexidine 2% Cloth) 3 pack DAILY@04 TOPICAL Last administered on 12/02/16 22:32; Start 12/03/16 at 04:00; Stop 12/07/16 at 04:01 Chlorhexidine Gluconate (Chlorhexidine 2% Cloth) 3 pack UNSCH PRN TOPICAL HYGIENIC CARE; Start 12/02/16 at 20:45; Stop 12/07/16 at 20:41 Potassium Chloride 40 meq 40 meq ONCE ONCE PO Last administered on 12/03/16 05 :19; Start 12/03/16 at 05:00; Stop 12/03/16 at 05:08; Status DC Sodium Chloride 250 ml @ 15 mls/hr ONCE ONCE IV ; Start 12/03/16 at 05:00; Stop 12/03/16 at 21:39 Potassium Chloride (KCl 20 Meq Premix Inj) 100 ml @ 50 mls/hr BOLUS ONCE IV ; Start 12/03/16 at 09:45; Stop 12/03/16 at 11:44; Status UNV A/P Assessment and Plan A/P -alcohol-induced cirrhosis with acute kidney injury - possible hepatorenal syndrome continue IV fluid- foreman in place- nephrology evaluation appreciated- awaiting GI consult. on CIWA protocol- continue thiamine and multivitamin. -hyponatremia due to cirrhosis/kidney injury and alcohol abuse - continue IV NS and close monitoring of the sodium level- nephrology following. -hypokalemia; will replace cautiously in light of kidney injury. -rectal bleed with cirrhosis - receiving PRBC transfusion- close monitoring of H /H- continue PPI- GI consult as noted above -anemia- no previous levels to compare- however with dropping H/H due to rectal bleed- PRBC transfusion as noted above with close monitoring of H/H. check the iron panel/ vitamin B12 and folic acid level. -leukocytosis with worsening ascites- improved- continue IV Rocephin empirically - awaiting GI evaluation - coagulopathy due to cirrhosis- will monitor closely -DVT prophylaxis with SCD's will consult recycling director- d/w and . will keep in ICU for close monitoring. Lillian Guevara MD Dec 03, 2016 09:59
[2016-12-03] MEDS ORDERED: PHYTONADIONE 5 MG TAB PO ONE (11:00)
[2016-12-03 14:08] LABS: HEMATOCRIT 22.9 % (39.0-51.0)
[2016-12-03] MEDS: SODIUM BICARBONATE 8.4% INJ 75 MEQ in SODIUM CHLOR 0.45% 1000 ML INJ 1,000 ML IV SCH (14:14)
[2016-12-03] MEDS: THIAMINE INJ 100 MG in SODIUM CHLORIDE 0.9% INJ 100 ML IV SCH (14:16)
[2016-12-03 14:22] LABS: PROTHROMBIN TIME - PATIENT 22.5 SEC (9.8-11.6)
--- NOTE | 2016-12-03 15:25 | RADHPO ---
EXAM DATE/TIME: 12/03/2016 12:24 [place] COMPARISON: No previous studies available for comparison. INDICATIONS : Ascites. MEDICAL HISTORY : Ascites. Diarrhea. Nausea. Vomiting. Fatigue SURGICAL HISTORY : Right knee surgery. ENCOUNTER: Initial ACUITY: 1 week PAIN SCORE: 5/10 LOCATION: Right lower quadrant FLUID: Total volume of 2300 cc of clear, yellow fluid was removed. Fluid was sent to lab for ordered studies. Post procedure scanning reveals no hematoma or other complication. TECHNIQUE: 1. Ultrasound guidance for abdominal paracentesis. 2. Paracentesis. The risks, benefits, and alternatives to ultrasound guided paracentesis were explained to the patient in detail including the risk of bleeding and infection. Written and verbal informed consent was obt ained. With the patient on the ultrasound table, ultrasound imaging was used to select the most appropriate approach for paracentesis. Overlying skin was prepped and draped in the usual sterile fashion and wi th a local anesthetic, a dermatotomy was made with an 11 blade scalpel. A 6 [place] [id number] ca theter was introduced into the peritoneal cavity and fluid was collected. The patient tolerated the procedure well and left the ultrasound suite in stable condition. CONCLUSION: Uncomplicated ultrasound guided paracentesis. José Antonio Yancey Jr., MD on December 03, 2016 at 15:23 Board Certified Radiologist. This report was verified electronically.
[2016-12-03] MEDS ORDERED: PEG (High)/E-LYTE SOLN 4000 ML BTL PO ONE (16:00)
[2016-12-03 16:25] LABS: PERITONEAL HISTIOCYTES 38 %; PERITONEAL LYMPHS 44 %; PERITONEAL MESOTHELIAL 1 %; PERITONEAL POLYS(SEGS) 17 %; PERITONEAL WBC 176 /MM3 (0-10)
--- NOTE | 2016-12-03 16:39 | MB ---
cc: JOSE ALBERTO GOMEZ MD, HASSAN M.D. MINOUEI, MOHAMMADREZA MD DATE OF CONSULTATION 12/03/[address] Gomez REASON FOR CONSULTATION Liver cirrhosis, rectal bleeding and anemia. Consult is for rectal bleeding. HISTORY OF PRESENT ILLNESS Mr. Walker is a 46-year-old gentleman with heavy alcohol use in the past. He says for about 3 years he has been having rectal bleeding on and off. This got more extensive about a week ago. He says he came into the hospital because of worsening bleeding and abdominal distension. Workup here is suggestive of liver cirrhosis, very likely from alcohol. He also has multiple electrolyte abnormalities. REVIEW OF SYSTEMS He says he feels better and there is no shortness of breath. No abdominal pain. He states has blood in the bowel movement each time he goes to the bathroom, multiple bowel movements during the day. No hematemesis or hematochezia. ALLERGIES None documented. PAST MEDICAL HISTORY None given. MEDICATIONS Medicines on admission: 1. Ibuprofen. FAMILY HISTORY Noncontributory. SOCIAL HISTORY The patient is a smoker, also drinks alcohol. PHYSICAL EXAMINATION GENERAL: physical examination reveals a well-nourished man in no apparent distress. VITAL SIGNS: Stable. HEENT: Head and neck examination, deeply icteric sclerae. CHEST: Bilateral air entry with rales. ABDOMEN: Abdomen is distended. Ascites is present. Nontender. GERIATRIC NURSE: Exam is nonfocal. RECTAL: Exam deferred at this time. LABORATORY DATA Labs reveal sodium of 123, creatinine 3.2, total bilirubin 19.4. INR is 2. Hemoglobin 7.9 after 2 units of blood. Serologies are negative for hepatitis C. IMAGING STUDIES CT of the abdomen and pelvis reveals ascites and findings consistent with liver cirrhosis. IMPRESSION Liver cirrhosis, GI bleeding and anemia. RECOMMENDATIONS Type and screen for 4 units of additional packed RBCs. Rally Pack and Protonix as ordered. Continue ceftriaxone as ordered. Transfuse 2 units of FFP today. Transfuse additional blood if the patient continues to have additional signs of bleeding. Bowel prep has been ordered. Plan is to proceed with an EGD, colonoscopy in the morning. Thank you for this referral. MD JOSIE Cordero/FRIEDA /4:05 PM /4:28 PM
[2016-12-03 17:32] LABS: TRANSFERRIN IRON PROFILE 106 MG/DL (200-360)
[2016-12-03 17:57] LABS: LDH SERUM 214 U/L (87-241)
--- NOTE | 2016-12-03 18:51 | PD.CONS ---
HPI Service Critical Care Medicine Consult Requested By Primary Care Physician No Primary Care Physician History of Present Illness patient is a 46 y/o male with history of alcohol abuse who presented to ER on 12/02 stating that he hasn't been able to urinate. he says that he's had this problem over the past few weeks. he's had dribbling. he denies any hematuria or dysuria. he says that he's also had some rectal bleed. it's been going on for few years but it seems that it's getting worse recently. he says that it's a combination of bright and dark red blood.he has mild abdominal pain but his abdomen has been getting more distended. he had some nausea and he says that he had some vomiting the night before coming to ER which was ' bloody at the end of his vomiting'. Patient felt weak and lightheaded on arrival. He was evaluated in the ER and admitted by hospitalist service. He continued to have rectal bleeding. He was noted to be hyponatremic with a metabolic acidosis and elevated BUN/creatinine. He was initiated on IV fluids. He received 2 units of PRBCs on 12/03 for hemoglobin of 7.1. He was evaluated by nephrology was initiated a bicarbonate drip for metabolic acidosis and IV hydration. Critical care medicine was consulted by Dr. Mendez for concern regarding worsening renal function with possible need for dialysis and ongoing GI bleeding. Patient underwent abdominal paracentesis with drainage of about 2.5 L of ascites fluid on 12/03 by IR. I evaluated the patient subsequently following the procedure in the ICU. He was sitting up in bed and appeared very comfortable at the time. He stated that his dizziness and lightheadedness and improved significantly following transfusions. He denied any chest pain or shortness of breath. He denied any abdominal pain. He stated that abdominal tightness had improved significantly following drainage of the fluid. Patient has already been evaluated by GI was planning EGD and colonoscopy . Patient is in the process of receiving 2 units of FFP. History was obtained by reviewing records and discussion with Dr. Mendez and ICU nursing staff. Review of Systems Constitutional: COMPLAINS OF: Fatigue, lightheadedness DENIES: Fever, Weight loss, Chills, Night Sweats Eyes: DENIES: Blurred vision, Diplopia, Vision loss, Double Vision Ears, nose, mouth, throat: DENIES: Tinnitus, Vertigo, Throat pain, Epistaxis Respiratory: DENIES: Apneas, Cough, Snoring, Wheezing, Hemoptysis, Sputum production, Shortness of breath Cardiovascular: DENIES: Chest pain, Palpitations, Syncope, Dyspnea on Exertion , PND, Lower Extremity Edema, Orthopnea, Claudication Gastrointestinal: COMPLAINS OF: Abdominal pain, Bloody stools, Nausea, Vomiting , DENIES: Black stools, Constipation, Diarrhea, Difficulty Swallowing, Anorexia Genitourinary: DENIES: Urinary frequency, Urgency, Hematuria, Dysuria Musculoskeletal: DENIES: Joint pain, Muscle aches, Stiffness, Joint Swelling Integumentary: DENIES: Rash Neurologic: DENIES: Abnormal gait, Headache, Localized weakness, Paresthesias, Seizures, Speech Problems, Tremor, Poor Balance Psychiatric: DENIES: Anxiety, Confusion, Mood changes, Depression, Hallucinations, Agitation, Suicidal Ideation, Homicidal Ideation, Delusions urinary dribbling. Past Family Social History Past Medical History not significant. Past Surgical History knee surgery. Reported Medications none reported. Allergies: Coded Allergies: No Known Allergies (Unverified , 12/02/16) Active Ordered Medications Administered Medications Medications (Trade) Dose Ordered Sig/Bong Route PRN Reason Start Time Stop Time Status Last Admin Dose Admin Sodium Chloride 2 ml 2 ml UNSCH PRN IVF FLUSH AFTER USING IV ACCESS 12/02/16 15:00 12/03/16 09:35 Thiamine HCl/ Sodium Chloride (Thiamine Inj/NS Inj) 101 ml @ 101 mls/hr DAILY IV 12/03/16 09:00 12/03/16 14:16 Pantoprazole Sodium 40 mg 40 mg Q24H IV PUSH 12/02/16 18:00 12/02/16 17:55 Ceftriaxone Sodium/Sodium Chloride (Rocephin Inj/NS Inj) 100 ml @ 200 mls/hr Q24H IV 12/02/16 18:00 12/02/16 17:56 Albumin Human (Albumin 25% Inj) 25 gm Q12H IV 12/02/16 21:00 12/03/16 09:35 Chlorhexidine Gluconate 3 pack 3 pack DAILY@04 TOPICAL 12/03/16 04:00 12/07/16 04:01 12/02/16 22:32 Sodium Chloride 250 ml @ 15 mls/hr ONCE ONCE IV 12/03/16 05:00 12/03/16 21:39 12/03/16 05:00 Sodium Bicarbonate/ Sodium Chloride (Sodium Bicarbonate 8.4% Inj/1/2 NS 1000 ml Inj) 1,075 ml @ 75 mls/hr [id number] IV 12/03/16 12:00 12/03/16 14:14 Family History diabetes in mother. Social History smokes three cigarettes a day. drinks two beers a day but used to drink heavily till three years ago. no illicit drug abuse. Physical Exam Vital Signs Vital Signs Date Time Temp Pulse Resp B/P Pulse Ox O2 Delivery O2 Flow Rate FiO2 12/03/16 16:45 97.6 87 17 108/48 97 12/03/16 16:32 98.9 86 16 109/47 97 12/03/16 16:00 97.9 84 16 104/43 97 12/03/16 16:00 84 12/03/16 15:00 86 18 117/51 98 12/03/16 14:00 84 15 114/47 97 12/03/16 14:00 84 12/03/16 13:00 86 17 134/55 98 12/03/16 12:00 98.3 84 30 107/55 98 12/03/16 12:00 86 12/03/16 11:00 88 17 112/48 98 12/03/16 10:00 84 16 115/44 97 12/03/16 10:00 88 12/03/16 09:00 86 18 96/50 98 12/03/16 09:00 88 12/03/16 08:15 97.7 93 16 110/55 98 12/03/16 08:00 98.5 84 22 95/46 98 12/03/16 08:00 98.5 84 18 94/45 98 12/03/16 08:00 84 12/03/16 07:00 86 17 98/43 12/03/16 06:00 86 12/03/16 04:00 86 12/03/16 03:03 90 12/03/16 03:03 90 18 92/41 96 12/03/16 03:00 88 12/03/16 02:03 88 16 112/51 12/03/16 02:00 86 12/03/16 01:03 86 22 109/53 12/03/16 00:03 97.7 90 25 118/54 97 12/03/16 00:00 88 12/02/16 23:25 98.0 92 14 91/47 96 12/02/16 23:00 92 29 112/44 95 12/02/16 22:03 88 13 107/45 96 12/02/16 22:00 88 12/02/16 21:03 98.0 92 16 91/41 96 12/02/16 20:00 82 12/02/16 19:53 80 12/02/16 19:53 98.0 80 17 92/53 98 12/02/16 19:49 98.0 83 20 109/51 98 12/02/16 18:59 97.4 80 16 106/42 97 Room Air 12/02/16 18:43 97.5 81 16 108/40 98 Room Air Physical Exam HEENT/Neuro: Positive pallor and icterus., tongue moist, MEGHA, Awake alert oriented 3, nonfocal grossly, moving all 4 extremities Neck: No JVD Chest/pulmonary: CTA bilaterally Cardiovascular: S1-S2 regular no gallop or murmur GI/abdomen: Soft, nontender, bowel sounds present Extremities: Warm bilaterally, no edema Laboratory Laboratory Tests Test 12/02/16 12/02/16 12/02/16 12/03/16 19:15 20:55 21:07 03:10 Nasal Screen MRSA (PCR) MRSA NOT DETECTED Urine Random Creatinine 297.9 Urine Random Sodium LESS THAN 5 Hemoglobin 8.4 7.5 Hematocrit 25.1 21.7 Sodium Level 120 122 Potassium Level 3.2 2.9 Chloride Level 88 90 Carbon Dioxide Level 18.0 16.9 Anion Gap 14 15 Blood Urea Nitrogen 36 37 Creatinine 3.40 3.30 Estimat Glomerular Filtration 20 20 Rate Random Glucose 120 112 Calcium Level 6.7 6.9 Protein Corrected Calcium 7.3 7.7 Total Protein 5.8 5.6 Hepatitis A IgM Antibody NEGATIVE Hepatitis B Surface Antigen NEGATIVE Hepatitis B Core IgM Antibody NEGATIVE Hepatitis C Antibody NEGATIVE Magnesium Level 2.2 Total Bilirubin 19.4 Aspartate Amino Transf 105 (AST/SGOT) Alanine Aminotransferase 43 (ALT/SGPT) Alkaline Phosphatase 115 Albumin 2.0 Test 12/03/16 12/03/16 12/03/16 12/03/16 05:00 07:50 10:46 13:10 Blood Type A POSITIVE Crossmatch Leukocyte-Reduced Red Blood Cells Blood Bank Comment White Blood Count 12.5 Red Blood Count 1.93 Hemoglobin 7.1 Hematocrit 20.5 Mean Corpuscular Volume 106.6 Mean Corpuscular Hemoglobin 36.9 Mean Corpuscular Hemoglobin 34.7 Concent Red Cell Distribution Width 17.8 Platelet Count 171 Mean Platelet Volume 8.3 Neutrophils (%) (Auto) 79.3 Lymphocytes (%) (Auto) 8.3 Monocytes (%) (Auto) 9.8 Eosinophils (%) (Auto) 1.9 Basophils (%) (Auto) 0.7 Neutrophils # (Auto) 10.0 Lymphocytes # (Auto) 1.0 Monocytes # (Auto) 1.2 Eosinophils # (Auto) 0.2 Basophils # (Auto) 0.1 CBC Comment AUTO DIFF Differential Comment AUTO DIFF CONFIRMED Sodium Level 121 Potassium Level 3.1 Chloride Level 91 Carbon Dioxide Level 15.9 Anion Gap 14 Blood Urea Nitrogen 36 Creatinine 3.20 Estimat Glomerular Filtration 21 Rate Random Glucose 113 Calcium Level 6.7 Protein Corrected Calcium 7.5 Total Protein 5.4 Peritoneal Fluid WBC 176 Peritoneal Fluid RBC 62 Peritoneal Fluid Neutrophils 17 Peritoneal Fluid Lymphocytes 44 Peritoneal Fluid Mesothelial 1 Cells Peritoneal Fluid Histiocytes 38 Test 12/03/16 12/03/16 12/03/16 14:05 14:10 16:10 Hemoglobin 7.9 Hematocrit 22.9 Prothrombin Time 22.5 Prothromb Time International 2.0 Ratio Sodium Level 123 Iron Level 154 Total Iron Binding Capacity 148 Percent Iron Saturation Lactate Dehydrogenase 214 Total Protein 5.5 Vitamin B12 Level GREATER THAN 2000 Folate 9.4 Thyroid Stimulating Hormone 1.610 3rd Gen Blood Type A POSITIVE Crossmatch Leukocyte-Reduced Red Blood Cells Blood Bank Comment Date/Time Procedure Status Source Growth 12/03/16 13:10 Gram Stain Received Fluid Peritoneal Fluid Pending 12/03/16 13:10 Body Fluid Culture Received Fluid Peritoneal Fluid Pending Result Diagram: 12/03/16 1405 12/03/16 1405 Imaging Last Impressions Cyst Biopsy Asp-Paracentesis US 12/03/16 0000 Signed Impressions: Service Date/Time: Saturday, December 03, 2016 12:24 - CONCLUSION: Uncomplicated ultrasound guided paracentesis. José Antonio Yancey Jr., MD Abdomen/Pelvis CT 12/02/16 1455 Signed Impressions: Service Date/Time: Friday, December 02, 2016 15:43 - CONCLUSION: 1. Heterogeneous appearance of the liver is nonspecific, could be hepatitis/cirrhosis. Metastatic disease can have a similar appearance although felt to be less likely given the other findings. 2. Varices left upper quadrant and large ascites suggest portal hypertension. 3. Cholelithiasis. Reynaldo Zhang MD Chest X-Ray 12/02/16 0000 Signed Impressions: Service Date/Time: Friday, December 02, 2016 17:33 - CONCLUSION: No acute disease. Reynaldo Zhang MD Abdomen Ultrasound 12/02/16 0000 Signed Impressions: Service Date/Time: Friday, December 02, 2016 17:07 - CONCLUSION: 1. Heterogeneous cirrhotic appearing liver. 2. Ascites with portal hypertension. 3. Suspected tumefactive sludge in the gallbladder fundus Reynaldo Zhang MD Assessment and Plan Assessment and Plan 46-year-old male with: Acute blood loss anemia secondary to GI bleed Liver cirrhosis History of alcohol abuse Ascites secondary to portal hypertension ANA PAULA ? CKD Hyponatremia Metabolic acidosis Plan: Neuro: Appears to be neurologically intact at this time. Follow neuro status. Defer lactulose/Zanaflex into GI following EGD and colonoscopy. Cardiovascular: IV hydration. Watch for hypotension. Pulmonary: Bronchodilators as needed. Supplemental O2 as needed. GI/liver: On clear liquids. Has been evaluated by GI. Awaiting EGD and colonoscopy. Status post paracentesis with removal of 2.5 L of ascites fluid which has been sent for further testing including cultures. May require repeat paracentesis if fluid re-accumulates. Consider nadolol/Aldactone if he remains hemodynamically stable. Renal: Strict intake output, monitor and replete electrolytes, follow BUN/ creatinine. IV hydration. On bicarbonate drip per nephrology. Endocrine: Watch for hyperglycemia, SSI for glycemic control if needed. ID: [email or web address] for empiric antibiotic coverage. Follow-up ascites fluid Gram stain and cultures. Prophylaxis: PPI/SCDs Critical care will be available as needed. No need for hemodialysis at this time. We'll transfer back to hospitalist service if patient remains hemodynamically stable. He is in no acute distress at this time and feels much improved following paracentesis and blood transfusions. Gerry Larson MD Dec 03, 2016 18:51
[2016-12-03] MEDS: PANTOPRAZOLE SODIUM 40 MG VIAL IV PUSH SCH (19:45)
[2016-12-03] MEDS: cefTRIAXone INJ 1,000 MG in SODIUM CHLORIDE 0.9% INJ 100 ML IV SCH (19:45)
[2016-12-03 20:47] LABS: HEMATOCRIT 25.1 % (39.0-51.0)
[2016-12-04] VITALS (25 sets, daily range): BP systolic 77–124; BP diastolic 42–54; PULSE 76–102; RESP 15–52; TEMP 97.6–98.4; O2SAT 67–98
[2016-12-04] MEDS: CHLORHEXIDINE GLUCONATE 2 % 1 PACK (2 CLOTHS)(taper/protocol) TOPICAL SCH (04:00)
[2016-12-04] MEDS: SODIUM BICARBONATE 8.4% INJ 75 MEQ in SODIUM CHLOR 0.45% 1000 ML INJ 1,000 ML IV SCH ×2 (04:44→21:20)
[2016-12-04 05:03] LABS: AUTOMATED NEUTROPHIL # 11.1 TH/MM3 (1.8-7.7); BASOPHIL # 0.3 TH/MM3 (0-0.2); EOSINOPHIL # 0.2 TH/MM3 (0-0.4); EOSINOPHIL % 1.2 % (0.0-4.0); HEMATOCRIT 22.2 % (39.0-51.0); LYMPH % 7.9 % (9.0-44.0); LYMPHOCYTE # 1.1 TH/MM3 (1.0-4.8); MEAN CELL VOLUME 101.9 FL (80.0-100.0); MEAN CORPUSCULAR HEMOGLOBIN 34.4 PG (27.0-34.0); MEAN CORPUSCULAR HGB CONC 33.8 % (32.0-36.0); MONO % 9.2 % (0.0-8.0); NEUT % 79.7 % (16.0-70.0); PLATELET COUNT 167 TH/MM3 (150-450); RED BLOOD COUNT 2.18 MIL/MM3 (4.50-5.90); RED CELL DISTRIBUTION WIDTH 20.8 % (11.6-17.2); WHITE BLOOD COUNT 14.1 TH/MM3 (4.0-11.0)
[2016-12-04 05:42] LABS: HEMO FLAGS AUTO DIFF
[2016-12-04 06:23] LABS: BICARBONATE 21.6 MEQ/L (21.0-32.0)
[2016-12-04 06:34] LABS: POTASSIUM 2.5 MEQ/L (3.5-5.1)
[2016-12-04] MEDS: ALBUMIN HUMAN 25% 25 GM/100 ML BAGP IV SCH ×2 (07:58→21:21)
[2016-12-04] MEDS ORDERED: SODIUM CHLOR 0.9% 250 ML INJ 250 ML IV ONE (08:15)
[2016-12-04 08:40] LABS: OVALOCYTES 1+ (NORMAL)
[2016-12-04 08:41] LABS: PLATELET ESTIMATE SMEAR NORMAL (NORMAL); PLATELET MORPHOLOGY NORMAL (NORMAL); SCAN/DIFF AUTO DIFF CONFIRMED
[2016-12-04] MEDS: POTASSIUM CHLOR 20 MEQ PREMIX 100 ML IV SCH ×4 (08:48→16:40)
[2016-12-04] MEDS: MULTIVITAMIN TAB PO SCH (09:00)
--- NOTE | 2016-12-04 09:03 | HHI.NPPN ---
Subjective General Problems: Anemia, Hypotension, Mebatolic Acidosis Renal Failure: Acute Interval History He is receiving blood again this morning. Due for EGD/colonoscopy. Renal function is better. (Breanne Akins) Review of Systems General Constitutional: Fatigue (Breanne Akins) Gastrointestinal Gastrointestinal: Abdominal Pain, Nausea & Vomiting, Diarrhea, Blood/Tarry Stools (Breanne Akins) Psych Psych: Depression (Breanne Akins) Objective Data Data 12/03/16 12/04/16 19:00 07:00 Intake Total 2455 ml 4739 ml Output Total 1000 ml 800 ml Balance 1455 ml 3939 ml Intake Oral 1680 ml 3000 ml IV Total 465 ml 1166 ml Albumin 50 ml 50 ml Packed Cells 260 ml 523 ml Output Urine Total 500 ml 800 ml Stool Total 500 ml # Bowel Movements 7 Vital Signs Date Time Temp Pulse Resp B/P Pulse Ox O2 Delivery O2 Flow Rate FiO2 12/04/16 08:45 98.3 95 18 107/46 98 12/04/16 08:10 98.4 97 18 106/46 97 12/04/16 08:00 98.4 97 18 106/46 97 12/04/16 07:00 96 16 113/46 12/04/16 06:00 92 12/04/16 06:00 92 20 104/42 12/04/16 05:00 94 24 108/46 12/04/16 04:00 97.6 102 52 107/54 98 12/04/16 04:00 102 12/04/16 03:00 98 26 106/52 12/04/16 02:00 86 12/04/16 02:00 86 16 111/51 12/04/16 01:00 84 17 119/48 12/04/16 00:42 97.6 90 25 112/45 12/04/16 00:00 86 12/03/16 23:29 86 22 115/51 12/03/16 23:29 86 22 115/51 98 12/03/16 22:00 84 12/03/16 21:03 86 16 111/52 12/03/16 20:22 86 16 111/47 12/03/16 20:03 88 21 103/32 12/03/16 20:00 88 12/03/16 19:49 98.3 88 22 99/44 98 12/03/16 19:05 98.3 88 21 103/32 96 12/03/16 19:01 86 13 100/54 12/03/16 18:50 86 16 110/48 97 12/03/16 18:00 84 12/03/16 16:45 97.6 87 17 108/48 97 12/03/16 16:32 98.9 86 16 109/47 97 12/03/16 16:00 97.9 84 16 104/43 97 12/03/16 16:00 84 12/03/16 15:00 86 18 117/51 98 12/03/16 14:00 84 15 114/47 97 12/03/16 14:00 84 12/03/16 13:00 86 17 134/55 98 12/03/16 12:00 98.3 84 30 107/55 98 12/03/16 12:00 86 12/03/16 11:00 88 17 112/48 98 12/03/16 10:00 84 16 115/44 97 12/03/16 10:00 88 12/03/16 09:00 86 18 96/50 98 12/03/16 09:00 88 (Breanne Akins) -: 12/04/16 0445 12/04/16 0445 Microbiology 12/03/16 Gram Stain, Received Pending 12/03/16 Body Fluid Culture, Received Pending Imaging Last 72 hours Impressions Cyst Biopsy Asp-Paracentesis US 12/03/16 0000 Signed Impressions: Service Date/Time: Saturday, December 03, 2016 12:24 - CONCLUSION: Uncomplicated ultrasound guided paracentesis. José Antonio Yancey Jr., MD Abdomen/Pelvis CT 12/02/16 1455 Signed Impressions: Service Date/Time: Friday, December 02, 2016 15:43 - CONCLUSION: 1. Heterogeneous appearance of the liver is nonspecific, could be hepatitis/cirrhosis. Metastatic disease can have a similar appearance although felt to be less likely given the other findings. 2. Varices left upper quadrant and large ascites suggest portal hypertension. 3. Cholelithiasis. Reynaldo Zhang MD Chest X-Ray 12/02/16 0000 Signed Impressions: Service Date/Time: Friday, December 02, 2016 17:33 - CONCLUSION: No acute disease. Reynaldo Zhang MD Abdomen Ultrasound 12/02/16 0000 Signed Impressions: Service Date/Time: Friday, December 02, 2016 17:07 - CONCLUSION: 1. Heterogeneous cirrhotic appearing liver. 2. Ascites with portal hypertension. 3. Suspected tumefactive sludge in the gallbladder fundus Reynaldo Zhang MD Tubes & Lines: [place] Drip Comment bicarbonate (Tashi,Breanne B. GRADES 1 THRU 5 TEACHER) Physical Exam General Appearance: Well Developed, No Acute Distress, Comfortable (TashiBreanne B. GRADES 1 THRU 5 TEACHER) Eyes Eye Exam: Jaundice (TashiBreanne B. GRADES 1 THRU 5 TEACHER) Throat Throat Remarks dry mucous membranes (Tashi,Breanne B. GRADES 1 THRU 5 TEACHER) Pulmonary Resp Exam: Clear Bilaterally, Breath Sounds Equal (Tashi,Breanne B. GRADES 1 THRU 5 TEACHER) Cardiology CV Exam: Regular, Normal Sinus Rhythm (Tashi,Breanne B. GRADES 1 THRU 5 TEACHER) Gastrointestinal/Abdomen GI Exam: Non-Tender, Bowel Sounds Present, Positive Bowel Movement, Distended GI Remarks firm, + ascites (Tashi,Breanne B. GRADES 1 THRU 5 TEACHER) Genitourinary Remarks dark urine (TashiBreanne B. GRADES 1 THRU 5 TEACHER) Musculoskeletal MS Exam: Normal Tone (Tashi,Breanne B. GRADES 1 THRU 5 TEACHER) Integumentary Skin Exam: Clear, Warm, Dry, Intact, Jaundice (Tashi,Breanne B. GRADES 1 THRU 5 TEACHER) Extremeties Extremities Exam: No Edema, Pedal Pulses Palpable (Tashi,Breanne B. GRADES 1 THRU 5 TEACHER) Neurologic Neuro Exam: Alert, Awake, Oriented, Speech Clear, Moving All Extremities ( Tashi,Breanne B. GRADES 1 THRU 5 TEACHER) Psychiatric Psych Exam: Appropriate Responses (Tashi,Breanne B. GRADES 1 THRU 5 TEACHER) Assessment/Plan Discussed Condition With: Patient Assessment Summary: ANA PAULA/Acute Renal Failure, Dehydration Electrolyte Assessment: Hypocalcemia, Hypokalemia, Hyponatremia, Metabolic Acidosis Problem List: (1) Acute kidney injury Plan: Oliguric renal failure with no baseline labs for comparison. Renal function is better potassium replacement ordered and in process Continue bicarb drip, also Continue albumin Avoid nephrotoxic agents. Monitor renal function daily BP borderline low, maintain MAP > 65mmHg (2) Hypo-osmolality and hyponatremia Plan: Sodium level is better, continue IVF and follow (3) Hypokalemia Plan: Continue to replace IV encouraged oral intake. Patient has metabolic acidosis. Hypokalemia in the presence of acidosis reflects profound body depletion of potassium stores. (4) Liver failure Plan: Due to Alcohol abuse. GI to follow. May have acute alcoholic hepatitis; he has varices seen on CT and signs of portal hypertension. Also has cholelithiasis on imaging. (5) GI bleed Plan: GI to follow, continue transfusion. Monitor Hemoglobin. (6) Anemia Plan: Hb is lower today continue Thiamine also suspected GIB, GI is following, due for colonoscopy/endoscopy PRBC ordered and currently transfusing (7) Leukocytosis Plan: no signs of infection, monitor (8) Hypocalcemia Plan: may be due to nutritional deficiency vitamin D level in process (Breanne Akins) Problem List: (1) Acute kidney injury Plan: Oliguric renal failure with no baseline labs for comparison. Renal function is better potassium replacement ordered and in process Continue bicarb drip, also Continue albumin Avoid nephrotoxic agents. Monitor renal function daily BP borderline low, maintain MAP > 65mmHg (2) Hypo-osmolality and hyponatremia Plan: Sodium level is better, continue IVF and follow (3) Hypokalemia Plan: Continue to replace IV encouraged oral intake. Patient has metabolic acidosis. Hypokalemia in the presence of acidosis reflects profound body depletion of potassium stores. (4) Liver failure Plan: Due to Alcohol abuse. GI to follow. May have acute alcoholic hepatitis; he has varices seen on CT and signs of portal hypertension. Also has cholelithiasis on imaging. (5) GI bleed Plan: GI to follow, continue transfusion. Monitor Hemoglobin. (6) Anemia Plan: Hb is lower today continue Thiamine also suspected GIB, GI is following, due for colonoscopy/endoscopy PRBC ordered and currently transfusing (7) Leukocytosis Plan: no signs of infection, monitor (8) Hypocalcemia Plan: may be due to nutritional deficiency vitamin D level in process Plan patient was seen and examined. Renal function has improved. Continue IVF cautiously. It is unlikely that he has hepatorenal syndrome. Replace potassium. Avoid nephrotoxic agents. Underwent paracentesis. (Eliseo Rodriguez MD) Problem Qualifiers (1) GI bleed: Qualified Code: K92.2 - Gastrointestinal hemorrhage, unspecified gastrointestinal hemorrhage type Breanne Akins Dec 04, 2016 09:03 Eliseo Rodriguez MD Dec 04, 2016 15:02
[2016-12-04] MEDS: THIAMINE INJ 100 MG in SODIUM CHLORIDE 0.9% INJ 100 ML IV SCH (12:25)
--- NOTE | 2016-12-04 15:41 | GIPROC ---
[facility] [address] [place] [address], [id number] EGD PROCEDURE REPORT EXAM DATE: 12/04/2016 PATIENT NAME: Shaun Walker MR #: [id number] BIRTHDATE: 1970 ATTENDING: Beatrice Hilliard MD ORDER #: [id number] [employer] SALES MANAGER: Portia Grande and Tanner Vences STATUS: inpatient INDICATIONS: The patient is a 46 yr old male here for an EGD due to acute post hemorrhagic anemia PROCEDURE PERFORMED: EGD, diagnostic MEDICATIONS: None and Per Anesthesia. TOPICAL ANESTHETIC: CONSENT: The patient understands the risks and benefits of the procedure and understands that these risks include, but are not limited to: sedation, allergic reaction, infection, perforation and/or bleeding. Alternative means of evaluation and treatment include, among others: physical exam, x-rays, and/or surgical intervention. The patient elects to proceed with this endoscopic procedure. medical equipment was checked for proper function. Hand hygiene and appropriate measures for infection prevention was taken. After the risks, benefits and alternatives of the procedure were thoroughly explained, Informed consent was verified, confirmed and timeout was successfully executed by the treatment team. The patient was anesthetized with topical anesthesia and the EC-[id number] (Pedi C) endoscope was introduced through the mouth and advanced to the second portion of the duodenum. Retroflexed views revealed no abnormalities The gastroscope was then slowly withdrawn and removed. ESOPHAGUS: There was LA Class A esophagitis noted. There was a single small varix in the distal esophagus. The varices were not bleeding. There was evidence of prior scarring. STOMACH: Severe portal hypertensive gastropathy was found in the gastric body. DUODENUM: The duodenal mucosa appeared normal. ADVERSE EVENTS: There were no complications. IMPRESSIONS: 1. There was LA Class A esophagitis noted 2. Portal hypertensive gastropathy was found in the gastric body 3. Normal duodenal mucosa 4. Retroflexed views revealed no abnormalities RECOMMENDATIONS: 1. Anti-reflux regimen 2. Continue PPI 3. Avoid NSAIDS PATIENT CONDITION: stable DISPOSITION: Inpatient REPEAT EXAM: Return 1 year EGD with sclerotherapy Beatrice Hilliard MD eSigned: Beatrice Hilliard MD 12/04/2016 3:40 PM cc: PATIENT NAME: Shaun Walker MR#: [id number]
--- NOTE | 2016-12-04 15:43 | GIPROC ---
[facility] [address] [place] [address], [id number] COLONOSCOPY PROCEDURE REPORT EXAM DATE: 12/04/2016 PATIENT NAME: Shaun Walker MR #: [id number] BIRTHDATE: 1970 ENDOSCOPIST: Beatrice Hilliard MD ORDER #: [id number] MANAGER ALLIANCE: Everett Vences Pat STATUS: inpatient INDICATIONS: The patient is a 46 yr old male here for a colonoscopy due to iron deficiency anemia PROCEDURE PERFORMED: Colonoscopy, diagnostic MEDICATIONS: None and Per Anesthesia. PREP QUALITY: good PREP TYPE:GoLytely ESTIMATED BLOOD LOSS: None CONSENT: The patient understands the risks and benefits of the procedure and understands that these risks include, but are not limited to: sedation, allergic reaction, infection, perforation and/or bleeding. Alternative means of evaluation and treatment include, among others: physical exam, x-rays, and/or surgical intervention. The patient elects to proceed with this endoscopic procedure. medical equipment was checked for proper function. Hand hygiene and appropriate measures for infection prevention was taken. After the risks, benefits and alternatives of the procedure were thoroughly explained, Informed consent was verified, confirmed and timeout was successfully executed by the treatment team. A digital exam revealed external hemorrhoids The Pentax EC-[id number] endoscope was introduced through the anus and advanced to the cecum, which was identified by both the appendix and ileocecal valve. The instrument was then slowly withdrawn as the colon was fully examined. COLON FINDINGS: The colonic mucosa appeared normal. Retroflexed views revealed internal hemorrhoids and Retroflexed views revealed medium internal hemorrhoids The scope was then completely withdrawn from the patient and the procedure terminated. PROCEDURE WITHDRAWAL TIME:7minutes ADVERSE EVENTS: There were no complications. IMPRESSIONS: 1. The colonic mucosa appeared normal 2. Retroflexed views revealed internal hemorrhoids 3. Retroflexed views revealed medium internal hemorrhoids 4. Revealed external hemorrhoids RECOMMENDATIONS: 1. Benefiber 2 tsp daily 2. Continue surveillance 3. Yearly hemoccult 4. Hydrocortisone supp 25mg [facility] HS RECALL: Return 5 years Colonoscopy Beatrice Hilliard MD eSigned: Beatrice Hilliard MD 12/04/2016 3:43 PM cc:
[2016-12-04] MEDS: cefTRIAXone INJ 1,000 MG in SODIUM CHLORIDE 0.9% INJ 100 ML IV SCH (16:37)
[2016-12-04] MEDS: PANTOPRAZOLE SODIUM 40 MG VIAL IV PUSH SCH (16:37)
--- NOTE | 2016-12-04 16:49 | HHI.CCPN ---
Subjective Remarks/Hospital Course 12/03: Patient is a 46 y/o male with history of alcohol abuse who presented to ER on 12/02 stating that he hasn't been able to urinate. he says that he's had this problem over the past few weeks. he's had dribbling. he denies any hematuria or dysuria. he says that he's also had some rectal bleed. it's been going on for few years but it seems that it's getting worse recently. he says that it's a combination of bright and dark red blood.he has mild abdominal pain but his abdomen has been getting more distended. he had some nausea and he says that he had some vomiting the night before coming to ER which was ' bloody at the end of his vomiting'. Patient felt weak and lightheaded on arrival. He was evaluated in the ER and admitted by hospitalist service. He continued to have rectal bleeding. He was noted to be hyponatremic with a metabolic acidosis and elevated BUN/creatinine. He was initiated on IV fluids. He received 2 units of PRBCs on 12/03 for hemoglobin of 7.1. He was evaluated by nephrology was initiated a bicarbonate drip for metabolic acidosis and IV hydration. Critical care medicine was consulted by Dr. Mendez for concern regarding worsening renal function with possible need for dialysis and ongoing GI bleeding. Patient underwent abdominal paracentesis with drainage of about 2.5 L of ascites fluid on 12/03 by IR. I evaluated the patient subsequently following the procedure in the ICU. He was sitting up in bed and appeared very comfortable at the time. He stated that his dizziness and lightheadedness and improved significantly following transfusions. He denied any chest pain or shortness of breath. He denied any abdominal pain. He stated that abdominal tightness had improved significantly following drainage of the fluid. Patient has already been evaluated by GI was planning EGD and colonoscopy . Patient is in the process of receiving 2 units of FFP. History was obtained by reviewing records and discussion with Dr. Mendez and ICU nursing staff. 12/04: Sitting up in bed comfortably this morning. Wishes to go home. Underwent EGD and colonoscopy by GI vision not reveal any active bleeding however did reveal severe portal gastropathy and hemorrhoids. Objective Vital Signs Date Time Temp Pulse Resp B/P Pulse Ox O2 Delivery O2 Flow Rate FiO2 12/04/16 15:15 76 29 97/47 96 12/04/16 14:55 97.6 12/02/16 18:59 Room Air Intake and Output 12/03/16 12/03/16 12/04/16 08:00 16:00 00:00 Intake Total 2039 ml 6594 ml Output Total 277 ml 1450 ml Balance 1762 ml 5144 ml Result Diagram: 12/04/16 0445 12/04/16 0445 Imaging Last Impressions Cyst Biopsy Asp-Paracentesis US 12/03/16 0000 Signed Impressions: Service Date/Time: Saturday, December 03, 2016 12:24 - CONCLUSION: Uncomplicated ultrasound guided paracentesis. José Antonio Yancey Jr., MD Abdomen/Pelvis CT 12/02/16 1455 Signed Impressions: Service Date/Time: Friday, December 02, 2016 15:43 - CONCLUSION: 1. Heterogeneous appearance of the liver is nonspecific, could be hepatitis/cirrhosis. Metastatic disease can have a similar appearance although felt to be less likely given the other findings. 2. Varices left upper quadrant and large ascites suggest portal hypertension. 3. Cholelithiasis. Reynaldo Zhang MD Chest X-Ray 12/02/16 0000 Signed Impressions: Service Date/Time: Friday, December 02, 2016 17:33 - CONCLUSION: No acute disease. Reynaldo Zhang MD Abdomen Ultrasound 12/02/16 0000 Signed Impressions: Service Date/Time: Friday, December 02, 2016 17:07 - CONCLUSION: 1. Heterogeneous cirrhotic appearing liver. 2. Ascites with portal hypertension. 3. Suspected tumefactive sludge in the gallbladder fundus Reynaldo Zhang MD Objective Remarks HEENT/Neuro: Positive pallor and icterus., tongue moist, MEGHA, Awake alert oriented 3, nonfocal grossly, moving all 4 extremities Neck: No JVD Chest/pulmonary: CTA bilaterally Cardiovascular: S1-S2 regular no gallop or murmur GI/abdomen: Soft, nontender, bowel sounds present Extremities: Warm bilaterally, no edema Procedures none A/P Assessment and Plan 46-year-old male with: Acute blood loss anemia secondary to GI bleed Liver cirrhosis History of alcohol abuse Ascites secondary to portal hypertension ANA PAULA ? CKD Hyponatremia Metabolic acidosis Plan: Neuro: Appears to be neurologically intact at this time. Follow neuro status. Defer lactulose/Zanaflex into GI following EGD and colonoscopy. Cardiovascular: IV hydration. Watch for hypotension. Pulmonary: Bronchodilators as needed. Supplemental O2 as needed. GI/liver: On clear liquids. Has been evaluated by GI. s/p EGD and colonoscopy. Status post paracentesis with removal of 2.5 L of ascites fluid which has been sent for further testing including cultures. May require repeat paracentesis if fluid re-accumulates. Consider nadolol/Aldactone if he remains hemodynamically stable. Renal: Strict intake output, monitor and replete electrolytes, follow BUN/ creatinine. IV hydration. On bicarbonate drip per nephrology. Heme: Anemia secondary to chronic blood loss. We'll give iron sucrose 200 mg IV daily 3 days. Endocrine: Watch for hyperglycemia, SSI for glycemic control if needed. ID: Rocephin for empiric antibiotic coverage. Follow-up ascites fluid Gram stain and cultures. Prophylaxis: PPI/SCDs Critical care will be available as needed. No need for hemodialysis at this time. We'll transfer back to hospitalist service if patient remains hemodynamically stable. He is in no acute distress at this time and feels much improved following paracentesis and blood transfusions. Gerry Larson MD Dec 04, 2016 16:49
[2016-12-04 17:35] LABS: HEMATOCRIT 27.4 % (39.0-51.0); MEAN CELL VOLUME 99.7 FL (80.0-100.0); MEAN CORPUSCULAR HEMOGLOBIN 34.3 PG (27.0-34.0); MEAN CORPUSCULAR HGB CONC 34.4 % (32.0-36.0); PLATELET COUNT 160 TH/MM3 (150-450); RED BLOOD COUNT 2.75 MIL/MM3 (4.50-5.90); RED CELL DISTRIBUTION WIDTH 22.8 % (11.6-17.2); REVIEW FLAG FINAL; WHITE BLOOD COUNT 17.6 TH/MM3 (4.0-11.0)
[2016-12-04] MEDS ORDERED: IRON SUCROSE INJ 200 MG in SODIUM CHLORIDE 0.9% INJ 100 ML IV SCH (18:00)
[2016-12-04 18:27] LABS: BICARBONATE 20.5 MEQ/L (21.0-32.0); POTASSIUM 3.5 MEQ/L (3.5-5.1)
[2016-12-04 18:59] LABS: CALCIUM-PROTEIN CORRECTED 7.9 MG/DL (8.5-10.1)
[2016-12-05] VITALS (10 sets, daily range): BP systolic 119–123; BP diastolic 59–75; PULSE 84–97; RESP 18–20; TEMP 98.3–98.7
[2016-12-05 03:24] LABS: BODY FLUID LDH 24 U/L (()); BODY FLUID LDH SOURCE PERITONEAL (())
[2016-12-05] MEDS: CHLORHEXIDINE GLUCONATE 2 % 1 PACK (2 CLOTHS)(taper/protocol) TOPICAL SCH (05:06)
[2016-12-05 06:17] LABS: AUTOMATED NEUTROPHIL # 12.3 TH/MM3 (1.8-7.7); BASOPHIL # 0.1 TH/MM3 (0-0.2); BASOPHIL % 0.4 % (0.0-2.0); EOSINOPHIL # 0.1 TH/MM3 (0-0.4); EOSINOPHIL % 0.9 % (0.0-4.0); HEMATOCRIT 23.5 % (39.0-51.0); LYMPH % 7.9 % (9.0-44.0); LYMPHOCYTE # 1.2 TH/MM3 (1.0-4.8); MEAN CORPUSCULAR HEMOGLOBIN 34.9 PG (27.0-34.0); MEAN CORPUSCULAR HGB CONC 35.3 % (32.0-36.0); MONO % 8.5 % (0.0-8.0); NEUT % 82.3 % (16.0-70.0); PLATELET COUNT 163 TH/MM3 (150-450); RED BLOOD COUNT 2.37 MIL/MM3 (4.50-5.90); RED CELL DISTRIBUTION WIDTH 22.1 % (11.6-17.2)
[2016-12-05 06:22] LABS: HEMO FLAGS AUTO DIFF
[2016-12-05 06:25] LABS: BICARBONATE 21.2 MEQ/L (21.0-32.0); CALCIUM-PROTEIN CORRECTED 8.2 MG/DL (8.5-10.1); MAGNESIUM 1.8 MG/DL (1.5-2.5); TOTAL BILIRUBIN ADULT 25.3 MG/DL (0.2-1.0)
[2016-12-05 07:37] LABS: TARGET CELLS 1+ (NORMAL)
[2016-12-05 07:38] LABS: ACANTHOCYTES OCC (NORMAL); KERATOCYTES OCC (NORMAL); SCAN/DIFF AUTO DIFF CONFIRMED
--- NOTE | 2016-12-05 08:40 | HHI.NPPN ---
Subjective General Problems: Anemia, Hypotension, Mebatolic Acidosis Renal Failure: Acute Interval History Sitting up in chair. He had EGD/colonoscopy yesterday. Ate several meals afterwards. He has developed lower extremity edema. Renal function is better. ( Breanne Akins) Review of Systems General Constitutional: Fatigue (Breanne Akins) Cardiovascular Cardiac: Edema (Breanne Akins) Gastrointestinal Gastrointestinal: Abdominal Pain, Nausea & Vomiting, Diarrhea, Blood/Tarry Stools (Breanne Akins) Psych Psych: Depression (Breanne Akins) Objective Data Data 12/04/16 12/05/16 19:00 07:00 Intake Total 1093 ml 2369 ml Output Total 650 ml 1700 ml Balance 443 ml 669 ml Intake Oral 0 ml 900 ml IV Total 793 ml 1469 ml Albumin 50 ml Packed Cells 250 ml Output Urine Total 650 ml 1700 ml # Bowel Movements 1 1 Vital Signs Date Time Temp Pulse Resp B/P Pulse Ox O2 Delivery O2 Flow Rate FiO2 12/05/16 06:00 97 12/05/16 04:00 97 12/05/16 03:44 98.5 84 20 119/59 12/05/16 02:00 86 12/05/16 00:00 96 12/04/16 23:43 98.2 94 21 111/53 12/04/16 22:00 92 12/04/16 20:00 88 12/04/16 19:20 98.4 86 18 124/54 67 12/04/16 18:00 90 12/04/16 16:00 86 12/04/16 15:15 76 29 97/47 96 12/04/16 14:58 80 25 103/54 92 12/04/16 14:55 97.6 86 15 77/53 12/04/16 14:00 94 23 103/42 12/04/16 14:00 94 12/04/16 12:00 92 12/04/16 12:00 92 15 96/49 12/04/16 11:00 94 20 98/44 97 12/04/16 10:00 94 12/04/16 08:45 98.3 95 18 107/46 98 (Breanne Akins) -: 12/05/16 0435 12/05/16 0435 Imaging Last 72 hours Impressions Cyst Biopsy Asp-Paracentesis US 12/03/16 0000 Signed Impressions: Service Date/Time: Saturday, December 03, 2016 12:24 - CONCLUSION: Uncomplicated ultrasound guided paracentesis. José Antonio Yancey Jr., MD Abdomen/Pelvis CT 12/02/16 1455 Signed Impressions: Service Date/Time: Friday, December 02, 2016 15:43 - CONCLUSION: 1. Heterogeneous appearance of the liver is nonspecific, could be hepatitis/cirrhosis. Metastatic disease can have a similar appearance although felt to be less likely given the other findings. 2. Varices left upper quadrant and large ascites suggest portal hypertension. 3. Cholelithiasis. Reynaldo Zhang MD Tubes & Lines: Foreman Drip Comment bicarbonate (Tashi,Breanne B. ART DIRECTOR) Physical Exam General Appearance: Well Developed, Well Nourished, No Acute Distress, Comfortable ( Tashi,Breanne B. ART DIRECTOR) Eyes Eye Exam: Jaundice (TashiBreanne B. ART DIRECTOR) Throat Throat Remarks dry mucous membranes (Tashi,Breanne B. ART DIRECTOR) Pulmonary Resp Exam: Breath Sounds Equal, Crackles (Tashi,Breanne B. ART DIRECTOR) Cardiology CV Exam: Regular, Normal Sinus Rhythm (Tashi,Breanne B. ART DIRECTOR) Gastrointestinal/Abdomen GI Exam: Non-Tender, Bowel Sounds Present, Positive Bowel Movement, Distended GI Remarks soft, ascites (Tashi,Breanne B. ART DIRECTOR) Genitourinary Remarks dark urine (TashiBreanne B. ART DIRECTOR) Musculoskeletal MS Exam: Normal Tone (Tashi,Breanne B. ART DIRECTOR) Integumentary Skin Exam: Clear, Warm, Dry, Intact, Jaundice (Tashi,Breanne B. ART DIRECTOR) Extremeties Extremities Exam: Pedal Pulses Palpable, Moderate Edema, Pitting Edema ( Tashi,Breanne B. ART DIRECTOR) Neurologic Neuro Exam: Alert, Awake, Oriented, Speech Clear, Moving All Extremities ( Tashi,Breanne B. ART DIRECTOR) Psychiatric Psych Exam: Appropriate Responses (TashiBreanne B. ART DIRECTOR) Assessment/Plan Discussed Condition With: Patient Assessment Summary: ANA PAULA/Acute Renal Failure, Dehydration Electrolyte Assessment: Hypocalcemia, Hypokalemia, Hyponatremia, Metabolic Acidosis Problem List: (1) Acute kidney injury Plan: Oliguric renal failure with no baseline labs for comparison. Renal function improved continue potassium replacement he has developed edema, stop IVF, he is tolerating oral fluids remove foreman Avoid nephrotoxic agents. Monitor renal function daily BP borderline low, maintain MAP > 65mmHg (2) Hypo-osmolality and hyponatremia Plan: Sodium level is worse today may be due to cirrhosis stop IVF and monitor (3) Hypokalemia Plan: Continue to replace IV encouraged oral intake. (4) Liver failure Plan: Due to Alcohol abuse. GI to follow. May have acute alcoholic hepatitis; he has varices seen on CT and signs of portal hypertension. Also has cholelithiasis on imaging. (5) GI bleed Plan: s/p EGD/colonoscopy he has nonbleeding varix, esophagitis,. and multiple hemorrhoids on Protonix (6) Anemia Plan: Hb low but stable continue Thiamine also suspected GIB, GI is following, s/p scope with GI, results reviewed s/p PRBC transfusion (7) Leukocytosis Plan: no signs of infection, monitor (8) Hypocalcemia Plan: may be due to nutritional deficiency severe vitamin d deficiency (Breanne Akins) Plan patient was seen and examined. Agree with above assessment and plan. Discontinue IVF and albumin. (Eliseo Rodriguez MD) Problem Qualifiers (1) GI bleed: Qualified Code: K92.2 - Gastrointestinal hemorrhage, unspecified gastrointestinal hemorrhage type Breanne Akins Dec 05, 2016 08:40 Eliseo Rodriguez MD Dec 05, 2016 21:00
[2016-12-05] MEDS ORDERED: CHOLECALCIFEROL (VIT D3) 1000 UNIT TAB PO SCH (09:00)
[2016-12-05] MEDS: MULTIVITAMIN TAB PO SCH (09:57)
[2016-12-05] MEDS: ALBUMIN HUMAN 25% 25 GM/100 ML BAGP IV SCH (09:57)
[2016-12-05] MEDS: THIAMINE INJ 100 MG in SODIUM CHLORIDE 0.9% INJ 100 ML IV SCH (11:16)
--- NOTE | 2016-12-05 12:42 | HHI.PR ---
Subjective Remarks Patient reports he is feeling better. He wants to go home. 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 He was made aware that he still has multiple electrolyte abnormalities including hyponatremia, hypokalemia. His lactic acid is still elevated. Objective Vitals Vital Signs Date Time Temp Pulse Resp B/P Pulse Ox O2 Delivery O2 Flow Rate FiO2 12/05/16 12:00 86 12/05/16 11:00 98.3 90 18 123/75 12/05/16 10:00 94 12/05/16 08:00 84 12/05/16 07:00 98.7 96 18 119/61 12/05/16 06:00 97 12/05/16 04:00 97 12/05/16 03:44 98.5 84 20 119/59 12/05/16 02:00 86 12/05/16 00:00 96 12/04/16 23:43 98.2 94 21 111/53 12/04/16 22:00 92 12/04/16 20:00 88 12/04/16 19:20 98.4 86 18 124/54 67 12/04/16 18:00 90 12/04/16 16:00 86 12/04/16 15:15 76 29 97/47 96 12/04/16 14:58 80 25 103/54 92 12/04/16 14:55 97.6 86 15 77/53 12/04/16 14:00 94 23 103/42 12/04/16 14:00 94 I/O 12/04/16 12/04/16 12/04/16 12/05/16 12/05/16 12/05/16 07:00 15:00 23:00 07:00 15:00 23:00 Intake Total 600 ml 1093 ml 1650 ml 719 ml Output Total 350 ml 650 ml 700 ml 1000 ml Balance 250 ml 443 ml 950 ml -281 ml Intake Oral 0 ml 0 ml 600 ml 300 ml IV Total 600 ml 793 ml 1050 ml 419 ml Albumin 50 ml Packed Cells 250 ml Output Urine Total 350 ml 650 ml 700 ml 1000 ml # Bowel Movements 4 1 1 Result Diagram: 12/05/16 0435 12/05/16 0435 Imaging Last Impressions Cyst Biopsy Asp-Paracentesis US 12/03/16 0000 Signed Impressions: Service Date/Time: Saturday, December 03, 2016 12:24 - CONCLUSION: Uncomplicated ultrasound guided paracentesis. José Antonio Yancey Jr., MD Abdomen/Pelvis CT 12/02/16 1455 Signed Impressions: Service Date/Time: Friday, December 02, 2016 15:43 - CONCLUSION: 1. Heterogeneous appearance of the liver is nonspecific, could be hepatitis/cirrhosis. Metastatic disease can have a similar appearance although felt to be less likely given the other findings. 2. Varices left upper quadrant and large ascites suggest portal hypertension. 3. Cholelithiasis. Reynaldo Zhang MD Chest X-Ray 12/02/16 0000 Signed Impressions: Service Date/Time: Friday, December 02, 2016 17:33 - CONCLUSION: No acute disease. Reynaldo Zhang MD Abdomen Ultrasound 12/02/16 0000 Signed Impressions: Service Date/Time: Friday, December 02, 2016 17:07 - CONCLUSION: 1. Heterogeneous cirrhotic appearing liver. 2. Ascites with portal hypertension. 3. Suspected tumefactive sludge in the gallbladder fundus Reynaldo Zhang MD Objective Remarks GENERAL: Chronically ill-appearing male in no acute distress. CARDIOVASCULAR: Normal rate and regular rhythm without murmurs, gallops, or rubs. RESPIRATORY: Good respiratory efforts. Breath sounds equal and clear to auscultation bilaterally. GASTROINTESTINAL: Abdomen is distended. Nontender. Normal active bowel sounds MUSCULOSKELETAL: Extremities with 2+ pitting edema NEURO: Alert & Oriented x4 to person, place, time, situation. Moves all ext x4 PSYCH: Appropriate mood and affect. Procedures none A/P Problem List: (1) Kidney injury ICD Code: S37.009A Status: Acute (2) Hepatic failure ICD Code: K72.90 Status: Acute (3) GI bleed ICD Code: K92.2 Status: Acute Assessment and Plan 46-year-old alcoholic male admitted with acute plus loss anemia secondary to GI bleed, ascites with portal hypertension, acute kidney injury, questionable chronic kidney disease, metabolic acidosis, multiple electrolyte abnormalities including hyponatremia, hypokalemia , lactic acidemia. Alcoholic liver cirrhosis with ascites: Patient has been evaluated by GI. s/p EGD and colonoscopy. Status post paracentesis with removal of 2.5 L of ascites fluid which has been sent for further testing including cultures. May appear to be reacting awaiting fluid. He would benefit from beta donte, diuretics, and spironolactone. However kidney functions are not great at this point. Appreciate further input from nephrology.Rocephin for empiric antibiotic coverage. Follow-up ascites fluid Gram stain and cultures. Elevated LFTs: Appreciate GI following.? Alcoholic hepatitis. Monitor Acute kidney injury: ? CKD. Patient is accumulating fluid with increased bilateral lower extremity edema. Status post bicarbonate drip per nephrology May benefit from diuretics given above condition. Plan to obtain 2-D echocardiogram Anemia secondary to chronic blood loss. Patient is status post 2 units of PRBC and 3 units of FFP transfusions. Patient is on iron sucrose 200 mg IV daily 3 days. Continue to monitor. Hyponatremia: Secondary to alcohol abuse. Improving. Continue to monitor. Hypokalemia: Replace and monitor. Lactic acidemia: There may be a possibility of sepsis. Patient does have a leukocytosis. Continue antibiotics with Rocephin for now. Follow cultures. Follow lactic acid levels. Alcohol dependence: Rally pack. [facility] protocol Prophylaxis: PPI/SCDs Problem Qualifiers (1) Kidney injury: Qualified Code: S37.009A - Kidney injury, unspecified laterality, initial encounter (2) Hepatic failure: Qualified Code: K72.90 - Liver failure without hepatic coma, unspecified chronicity (3) GI bleed: Qualified Code: K92.2 - Gastrointestinal hemorrhage, unspecified gastrointestinal hemorrhage type Amparo Grimaldo MD Dec 05, 2016 12:42
[2016-12-05] MEDS ORDERED: POTASSIUM CHLORIDE 10 MEQ CONTROLLED RELEASE TAB PO ONE (12:45)
--- NOTE | 2016-12-05 16:20 | HHI.DS ---
Discharge Summary Admission Date Dec 02, 2016 at 16:36 Discharge Date: Dec 05, 2016 Admitting Diagnosis GI BLEED, ANEMIA, LIVER FAILURE, RENAL FAILURE (1) Kidney injury ICD Code: S37.009A Diagnosis: Principal (2) Hepatic failure ICD Code: K72.90 Diagnosis: Principal (3) GI bleed ICD Code: K92.2 Diagnosis: Principal Procedures none Brief History - From Admission patient is a 46 y/o male with history of alcohol abuse who presented to ER stating that he hasn't been able to urinate. he says that he's had this problem over the past few weeks. he's had dribbling. he denies any hematuria or dysuria. he says that he's also had some rectal bleed. it's been going on for few years but it seems that it's getting worse recently. he says that it's a combination of bright and dark red blood.he has mild abdominal pain but his abdomen has been getting more distended. he had some nausea and he says that he had some vomiting last night which was ' bloody at the end of his vomiting'. he feels weak. CBC/BMP: 12/05/16 0435 12/05/16 0435 Significant Findings Laboratory Tests Test 12/02/16 12/03/16 12/03/16 12/03/16 21:07 03:10 07:50 13:10 Hemoglobin 8.4 GM/DL 7.5 GM/DL 7.1 GM/DL (13.0-17.0) (13.0-17.0) (13.0-17.0) Hematocrit 25.1 % 21.7 % 20.5 % (39.0-51.0) (39.0-51.0) (39.0-51.0) Sodium Level 120 MEQ/L 122 MEQ/L 121 MEQ/L (136-145) (136-145) (136-145) Potassium Level 3.2 MEQ/L 2.9 MEQ/L 3.1 MEQ/L (3.5-5.1) (3.5-5.1) (3.5-5.1) Chloride Level 88 MEQ/L 90 MEQ/L 91 MEQ/L (98-107) (98-107) (98-107) Carbon Dioxide Level 18.0 MEQ/L 16.9 MEQ/L 15.9 MEQ/L (21.0-32.0) (21.0-32.0) (21.0-32.0) Blood Urea Nitrogen 36 MG/DL (7-18) 37 MG/DL (7-18) 36 MG/DL (7-18) Creatinine 3.40 MG/DL 3.30 MG/DL 3.20 MG/DL (0.60-1.30) (0.60-1.30) (0.60-1.30) Estimat Glomerular Filtration 20 ML/MIN (>89) 20 ML/MIN (>89) 21 ML/MIN (>89) Rate Random Glucose 120 MG/DL 112 MG/DL 113 MG/DL (74-106) (74-106) (74-106) Calcium Level 6.7 MG/DL 6.9 MG/DL 6.7 MG/DL (8.5-10.1) (8.5-10.1) (8.5-10.1) Protein Corrected Calcium 7.3 MG/DL 7.7 MG/DL 7.5 MG/DL (8.5-10.1) (8.5-10.1) (8.5-10.1) Total Protein 5.8 GM/DL 5.6 GM/DL 5.4 GM/DL (6.4-8.2) (6.4-8.2) (6.4-8.2) Total Bilirubin 19.4 MG/DL (0.2-1.0) Aspartate Amino Transf 105 U/L (15-37) (AST/SGOT) Albumin 2.0 GM/DL (3.4-5.0) White Blood Count 12.5 TH/MM3 (4.0-11.0) Red Blood Count 1.93 MIL/MM3 (4.50-5.90) Mean Corpuscular Volume 106.6 FL (80.0-100.0) Mean Corpuscular Hemoglobin 36.9 PG (27.0-34.0) Red Cell Distribution Width 17.8 % (11.6-17.2) Neutrophils (%) (Auto) 79.3 % (16.0-70.0) Lymphocytes (%) (Auto) 8.3 % (9.0-44.0) Monocytes (%) (Auto) 9.8 % (0.0-8.0) Neutrophils # (Auto) 10.0 TH/MM3 (1.8-7.7) Monocytes # (Auto) 1.2 TH/MM3 (0-0.9) Peritoneal Fluid WBC 176 /MM3 (0-10) Peritoneal Fluid RBC 62 /MM3 (0-0) Test 12/03/16 12/03/16 12/03/16 12/04/16 14:05 14:10 20:15 04:45 Hemoglobin 7.9 GM/DL 8.6 GM/DL 7.5 GM/DL (13.0-17.0) (13.0-17.0) (13.0-17.0) Hematocrit 22.9 % 25.1 % 22.2 % (39.0-51.0) (39.0-51.0) (39.0-51.0) Prothrombin Time 22.5 SEC (9.8-11.6) Sodium Level 123 MEQ/L 126 MEQ/L 127 MEQ/L (136-145) (136-145) (136-145) Total Iron Binding Capacity 148 MCG/DL (250-450) Total Protein 5.5 GM/DL (6.4-8.2) Vitamin B12 Level GREATER THAN 2000 PG/ML (193-986) Lactic Acid Level 2.2 mmol/L (0.4-2.0) White Blood Count 14.1 TH/MM3 (4.0-11.0) Red Blood Count 2.18 MIL/MM3 (4.50-5.90) Mean Corpuscular Volume 101.9 FL (80.0-100.0) Mean Corpuscular Hemoglobin 34.4 PG (27.0-34.0) Red Cell Distribution Width 20.8 % (11.6-17.2) Neutrophils (%) (Auto) 79.7 % (16.0-70.0) Lymphocytes (%) (Auto) 7.9 % (9.0-44.0) Monocytes (%) (Auto) 9.2 % (0.0-8.0) Neutrophils # (Auto) 11.1 TH/MM3 (1.8-7.7) Monocytes # (Auto) 1.3 TH/MM3 (0-0.9) Basophils # (Auto) 0.3 TH/MM3 (0-0.2) Ovalocytes 1+ (NORMAL) Potassium Level 2.5 MEQ/L (3.5-5.1) Chloride Level 93 MEQ/L (98-107) Blood Urea Nitrogen 27 MG/DL (7-18) Creatinine 2.50 MG/DL (0.60-1.30) Estimat Glomerular Filtration 28 ML/MIN (>89) Rate Calcium Level 7.3 MG/DL (8.5-10.1) Albumin 2.3 GM/DL (3.4-5.0) 25-Hydroxy Vitamin D Total 8.1 ng/ML (30-100) Test 12/04/16 12/05/16 17:20 04:35 White Blood Count 17.6 TH/MM3 15.0 TH/MM3 (4.0-11.0) (4.0-11.0) Red Blood Count 2.75 MIL/MM3 2.37 MIL/MM3 (4.50-5.90) (4.50-5.90) Hemoglobin 9.4 GM/DL 8.3 GM/DL (13.0-17.0) (13.0-17.0) Hematocrit 27.4 % 23.5 % (39.0-51.0) (39.0-51.0) Mean Corpuscular Hemoglobin 34.3 PG 34.9 PG (27.0-34.0) (27.0-34.0) Red Cell Distribution Width 22.8 % 22.1 % (11.6-17.2) (11.6-17.2) Sodium Level 129 MEQ/L 127 MEQ/L (136-145) (136-145) Chloride Level 96 MEQ/L 93 MEQ/L (98-107) (98-107) Carbon Dioxide Level 20.5 MEQ/L (21.0-32.0) Blood Urea Nitrogen 24 MG/DL (7-18) 20 MG/DL (7-18) Creatinine 2.40 MG/DL 2.10 MG/DL (0.60-1.30) (0.60-1.30) Estimat Glomerular Filtration 29 ML/MIN (>89) 34 ML/MIN (>89) Rate Random Glucose 115 MG/DL (74-106) Calcium Level 7.2 MG/DL 7.3 MG/DL (8.5-10.1) (8.5-10.1) Protein Corrected Calcium 7.9 MG/DL 8.2 MG/DL (8.5-10.1) (8.5-10.1) Total Protein 5.8 GM/DL 5.4 GM/DL (6.4-8.2) (6.4-8.2) Neutrophils (%) (Auto) 82.3 % (16.0-70.0) Lymphocytes (%) (Auto) 7.9 % (9.0-44.0) Monocytes (%) (Auto) 8.5 % (0.0-8.0) Neutrophils # (Auto) 12.3 TH/MM3 (1.8-7.7) Monocytes # (Auto) 1.3 TH/MM3 (0-0.9) Target Cells 1+ (NORMAL) Potassium Level 3.0 MEQ/L (3.5-5.1) Lactic Acid Level 3.7 mmol/L (0.4-2.0) Total Bilirubin 25.3 MG/DL (0.2-1.0) Aspartate Amino Transf 97 U/L (15-37) (AST/SGOT) Albumin 2.7 GM/DL (3.4-5.0) PE at Discharge GENERAL: Chronically ill-appearing male in no acute distress. CARDIOVASCULAR: Normal rate and regular rhythm without murmurs, gallops, or rubs. RESPIRATORY: Good respiratory efforts. Breath sounds equal and clear to auscultation bilaterally. GASTROINTESTINAL: Abdomen is distended. Nontender. Normal active bowel sounds MUSCULOSKELETAL: Extremities with 2+ pitting edema NEURO: Alert & Oriented x4 to person, place, time, situation. Moves all ext x4 PSYCH: Appropriate mood and affect. Hospital Course Unfortunately I was notified the patient decided to leave the hospital against medical advise. I spoke to him the phone and tried to convince him to stay to treat the conditions listed above but he refused and left the hospital AMA. The patient's treatment plan on the day of discharge is detailed below: 46-year-old alcoholic male admitted with acute plus loss anemia secondary to GI bleed, ascites with portal hypertension, acute kidney injury, questionable chronic kidney disease, metabolic acidosis, multiple electrolyte abnormalities including hyponatremia, hypokalemia , lactic acidemia. Alcoholic liver cirrhosis with ascites: Patient has been evaluated by GI. s/p EGD and colonoscopy. Status post paracentesis with removal of 2.5 L of ascites fluid which has been sent for further testing including cultures. May appear to be reacting awaiting fluid. He would benefit from beta donte, diuretics, and spironolactone. However kidney functions are not great at this point. Appreciate further input from nephrology.Rocephin for empiric antibiotic coverage. Follow-up ascites fluid Gram stain and cultures. Elevated LFTs: Appreciate GI following.? Alcoholic hepatitis. Monitor Acute kidney injury: ? CKD. Patient is accumulating fluid with increased bilateral lower extremity edema. Status post bicarbonate drip per nephrology May benefit from diuretics given above condition. Plan to obtain 2-D echocardiogram Anemia secondary to chronic blood loss. Patient is status post 2 units of PRBC and 3 units of FFP transfusions. Patient is on iron sucrose 200 mg IV daily 3 days. Continue to monitor. Hyponatremia: Secondary to alcohol abuse. Improving. Continue to monitor. Hypokalemia: Replace and monitor. Lactic acidemia: There may be a possibility of sepsis. Patient does have a leukocytosis. Continue antibiotics with Rocephin for now. Follow cultures. Follow lactic acid levels. Alcohol dependence: Dutch vazquez. [facility] protocol Prophylaxis: PPI/SCDs Pt Condition on Discharge: Fair Discharge Disposition: Discharge Home Discharge Time: <= 30 minutes Amparo Grimaldo MD Dec 05, 2016 16:20
== END 2016-12-05 15:09 | disposition left against medical advice (07) | DRG 378 ==
LOC: PHED 14:27 → PHEDA 16:36 → PHICU 19:05
PROVIDERS: ADMIT Family Medicine; ATTEND Family Medicine
PROC: 30233N1 Transfusion of Nonautologous Red Blood Cells into Peripheral Vein, Percutaneous Approach (ICD-10-PCS; 2016-12-02)
PROC: 0W9G3ZX Drainage of Peritoneal Cavity, Percutaneous Approach, Diagnostic (ICD-10-PCS; principal; 2016-12-03)
PROC: 30233K1 Transfusion of Nonautologous Frozen Plasma into Peripheral Vein, Percutaneous Approach (ICD-10-PCS; 2016-12-03)
PROC: 0DJ08ZZ Inspection of Upper Intestinal Tract, Via Natural or Artificial Opening Endoscopic (ICD-10-PCS; 2016-12-04)
PROC: 0DJD8ZZ Inspection of Lower Intestinal Tract, Via Natural or Artificial Opening Endoscopic (ICD-10-PCS; 2016-12-04)
DX: K92.1 Melena (principal); E87.1 Hypo-osmolality and hyponatremia; N17.9 Acute kidney failure, unspecified; D68.4 Acquired coagulation factor deficiency; E87.2 Acidosis; K76.6 Portal hypertension; D62 Acute posthemorrhagic anemia; I85.10 Secondary esophageal varices without bleeding; K70.31 Alcoholic cirrhosis of liver with ascites; K72.90 Hepatic failure, unspecified without coma; E87.6 Hypokalemia; F17.210 Nicotine dependence, cigarettes, uncomplicated; K31.89 Other diseases of stomach and duodenum; F10.20 Alcohol dependence, uncomplicated; D50.0 Iron deficiency anemia secondary to blood loss (chronic); I12.9 Hypertensive chronic kidney disease with stage 1 through stage 4 chronic kidney disease, or unspecified chronic kidney disease; N18.9 Chronic kidney disease, unspecified; K70.11 Alcoholic hepatitis with ascites
CPT/HCPCS: 36430; 49083; 51703; 71010; 74176; 76700; 80048; 80053; 80069; 80074; 80307; 81001; 82042; 82140; 82306; 82570; 82607; 82746; 82945; 83540; 83550; 83605; 83615; 83690; 83735; 84155; 84157; 84295; 84300; 84443; 85014; 85018; 85025; 85027; 85610; 86850; 86900; 86901; 86920; 86927; 87070; 87205; 87641; 89051; 96361; 96374; C1729; C9113; J0696; J1756; J2405; J3411; J3480; J7030; J7050; P9016; P9017; P9047

== ENCOUNTER 2016-12-14 15:41 | Inpatient (IN) | payer MEDICAID, OTHER ==
[~2016-12-14] VITALS: Ht 170.2 cm; Wt 93.0 kg
[2016-12-14] VITALS (11 sets, daily range): BP systolic 0–139; BP diastolic 0–77; PULSE 0–79; RESP 0–16; O2SAT 0–100
[~2016-12-14 15:41] MED LIST: ATROPINE SULFATE 1 MG/10 ML SYRINGE IV ONE; DOPamine INJ PREMIX 500 ML IV ONE; EPINEPHrine HCL (1:10,000) 1 MG/10 ML SYRINGE IV ONE; SODIUM BICARBONATE 8.4% INJ 50 MEQ/50 ML SYR IV ONE
[2016-12-14] MEDS ORDERED: DOPamine INJ PREMIX 500 ML ONE (15:59)
[2016-12-14] MEDS ORDERED: NOREPINEPHRINE 4 MG/4 ML AMP ONE (16:25)
[2016-12-14 16:26] LABS: MEAN CORPUSCULAR HGB CONC 29.1 % (32.0-36.0)
[2016-12-14] MEDS ORDERED: TERBUTALINE INJ 1 MG/ML AMP SQ PRN ×2 (16:30)
[2016-12-14] MEDS ORDERED: SODIUM CHLORIDE 0.9% FLUSH 10 ML FLUSH IVF PRN (16:30)
[2016-12-14] MEDS ORDERED: PANTOPRAZOLE INJ 80 MG in SODIUM CHLORIDE 0.9% INJ 35 ML IV ONE (16:30)
[2016-12-14] MEDS ORDERED: SODIUM CHLOR 0.9% 250 ML INJ 250 ML IV ONE (16:30)
[2016-12-14 17:04] LABS: BLOOD GAS CARBOXYHEMOGLOBIN 0.7 % (0-4); BLOOD GAS HCO3 6 mmol/L (22-26); BLOOD GAS METHEMOGLOBIN 0.9 % (0-2); BLOOD GAS O2 HGB SATURATION 96 % (90-100); BLOOD GAS OXYGEN CONTENT 10.1 Vol % (12.0-20.0); BLOOD GAS PCO2 51 mmHg (38-42); BLOOD GAS PO2 273 mmHG (61-120); BLOOD GAS TOTAL HGB 6.9 G/DL (12.0-16.0); TEMP CORR TO 98.6
[2016-12-14 17:05] LABS: CRITICAL VALUE YES; DRAW SITE RT FEMORAL; FIO2 100 %; NUMBER OF ARTERIAL PUNCTURES 1; OXYGEN DEVICE VENTILATOR; VENT SETTINGS 600/16/+5
[2016-12-14 17:06] LABS: STAT YES
--- NOTE | 2016-12-14 17:09 | PD ---
HPI Chief Complaint: CODE BLUE Time Seen by Provider: 16:27 Travel History International Travel<30 days: No Contact w/Intl Traveler<30days: No Traveled to known affect area: No History of Present Illness HPI 46-year-old male with history of alcoholic cirrhosis was discharged recently from the hospital was found by his mother unresponsive on the bathroom floor in a puddle of coffee ground emesis. She called 911. By the time EMS arrived they found him pulseless and CPR was initiated. Patient was intubated with a Combitube at the scene. Patient had received multiple rounds of epinephrine with no pulse. As per EMS there was a lot of blood at the scene. Patient arrived pulseless with CPR in progress. No family accompanying to give any further history. As per EMS that sugar was 71. They had given D10. Upon arrival blood sugar was 141. PFSH Past Medical History Narrative Medical List of his past medical, surgical, social and family history was reviewed from the nursing note. Social History Alcohol Use: Yes (1-2 BEERS DAILY) Tobacco Use: Yes (3 CIG DAILY) Substance Use: No Allergies-Medications (Allergen,Severity, Reaction): Coded Allergies: No Known Allergies (Unverified , 12/02/16) Comments No known drug allergies. Reported Meds & Prescriptions Reported Meds & Active Scripts Active No Active Prescriptions or Reported Medications Narrative Medication List of his home medications reviewed from the nursing note. Review of Systems Except as stated in HPI: all other systems reviewed are Neg Physical Exam Narrative GENERAL: Unresponsive, Combitube in, bagged with positive pressure ventilation SKIN: Pale, jaundiced, diaphoretic HEAD: Atraumatic. Normocephalic. EYES: Pupils equal and round, 6 mm and nonreactive to light. Severe scleral icterus. No injection or drainage. ENT: No nasal bleeding or discharge. Mucous membranes pink and moist. ET tube , clots of blood in mouth, pale tongue and oral mucosa NECK: Trachea midline. No JVD. CARDIOVASCULAR: Regular rate and rhythm. No murmur appreciated. RESPIRATORY: No spontaneous breathing GASTROINTESTINAL: Distended abdomen, tends. Hepatic and splenic margins not palpable. MUSCULOSKELETAL: No obvious deformities. No clubbing. No cyanosis. 2+ pedal edema and anasarca NEUROLOGICAL: GCS of 3 PSYCHIATRIC: Unable to assess Data Data Last Documented VS Vital Signs Date Time Temp Pulse Resp B/P Pulse Ox O2 Delivery O2 Flow Rate FiO2 12/14/16 17:01 74 16 83/64 99 Ventilator 12/14/16 16:00 100 Orders Type And Screen (12/14/16 15:57) Dopamine Inj Premix (Dopamine Inj Premix (12/14/16 15:59) Chest, Single Ap (12/14/16 ) Complete Blood Count With Diff (12/14/16 16:24) Comprehensive Metabolic Panel (12/14/16 16:24) Lipase (12/14/16 16:24) Ammonia (12/14/16 16:24) Prothrombin Time / Inr (Pt) (12/14/16 16:24) Act Partial Throm Time (Ptt) (12/14/16 16:24) Alcohol (Ethanol) (12/14/16 16:24) Ecg Monitoring (12/14/16 16:24) Iv Access Insert/Monitor (12/14/16 16:24) Oximetry (12/14/16 16:24) Sodium Chloride 0.9% Flush (Ns Flush) (12/14/16 16:30) Octreotide Inj (Sandostatin Inj) (12/14/16 16:30) Pantoprazole Inj (Protonix Inj) (12/14/16 16:30) Pantoprazole Inj (Protonix Inj) (12/14/16 16:30) Norepinephrine Inj (Levophed Inj) (12/14/16 16:25) Red Blood Cells (Rbc) (12/14/16 16:28) Blood Product Administration .UPON TRANSFUSION (12/14/16 16:28) Sodium Chlor 0.9% 250 Ml Inj (Ns 250 Ml (12/14/16 16:30) Dopamine Inj Premix (Dopamine Inj Premix (12/14/16 16:30) Terbutaline Inj (Brethine Inj) (12/14/16 16:30) Norepinephrine-Dextrose Drip (Levophed-D (12/14/16 16:30) Terbutaline Inj (Brethine Inj) (12/14/16 16:30) Lactic Acid Sepsis Protocol (12/14/16 16:28) Arterial Blood Gas (Abg) (12/14/16 16:36) Cryoprecipitate (12/14/16 15:45) Admit To Inpatient (12/14/16 ) Code Status (12/14/16 17:12) Vital Signs (Adult) GLENYS.Q1H (12/14/16 17:12) Activity Bed Rest (12/14/16 17:12) Neuro Checks . ORDERED (12/14/16 17:12) Diet Npo (12/14/16 Dinner) Sodium Chloride 0.9% Flush (Ns Flush) (12/14/16 17:15) Sodium Chloride 0.9% Flush (Ns Flush) (12/14/16 21:00) Artificial Tears Opth Soln (Tears Natura (12/14/16 18:00) Ondansetron Inj (Zofran Inj) (12/14/16 17:15) Albuterol-Ipratropium Neb (Duoneb Neb) (12/14/16 22:00) Albuterol Neb (Albuterol Neb) (12/14/16 17:15) Complete Blood Count With Diff (12/15/16 04:00) Comprehensive Metabolic Panel (12/15/16 04:00) Act Partial Throm Time (Ptt) (12/15/16 04:00) Prothrombin Time / Inr (Pt) (12/15/16 04:00) Magnesium (Mg) (12/15/16 04:00) Phosphorus (Po4) (12/15/16 04:00) Lactic Acid (12/15/16 04:00) Delivery And Installation Subcontractor / Telemetry GLENYS.Q8H (12/14/16 17:12) ^ Initiate Protocol (12/14/16 17:12) Instruction (12/14/16 17:12) [facility] Nursing Information (12/14/16 17:15) Chlorhexidine 2% Cloth (Chlorhexidine 2% (12/15/16 04:00) Chlorhexidine 2% Cloth (Chlorhexidine 2% (12/14/16 17:15) Mrsa Pcr Surveillance (12/14/16 17:12) Docusate Sodium-Senna (Brianda-Colace) (12/14/16 21:00) Magnesium Hydroxide Liq (Milk Of Magnesi (12/14/16 17:15) Sennosides (Senokot) (12/14/16 17:15) Bisacodyl Supp (Dulcolax Supp) (12/14/16 17:15) Lactulose Liq (Lactulose Liq) (12/14/16 17:15) Propofol 1000 Mg/100 Ml Inj (Diprivan 10 (12/14/16 17:15) Neurological Rass Scale Q30MX2,Q2HX4,Q4H (12/14/16 17:12) Fentanyl Drip (Fentanyl Drip) (12/14/16 17:15) Inpatient Certification (12/14/16 ) Hgb & Hct (12/14/16 21:00) Sodium Bicarbonate 8.4% Inj (Sodium Bica (12/14/16 17:30) Water Sterile For I... W/Sodium Bicarbon (12/14/16 17:30) Fibrinogen (12/14/16 17:42) Phosphorus (Po4) (12/14/16 17:42) Magnesium (Mg) (12/14/16 17:42) Thyroid Stimulating Hormone (12/14/16 17:42) Dextrose 5% In Wate... W/Vasopressin Inj (12/14/16 17:43) Ceftriaxone Inj (Rocephin Inj) (12/14/16 18:00) Arterial Blood Gas (Abg) (12/14/16 19:00) Phytonadione Inj (Vitamin K Inj) (12/14/16 18:00) Prothrombin Complex Conc Inj (Kcentra In (12/14/16 18:00) Admit Order (Ed Use Only) (12/14/16 17:51) Labs Laboratory Tests Test 12/14/16 12/14/16 15:45 16:36 White Blood Count 12.0 TH/MM3 Red Blood Count 0.81 MIL/MM3 Hemoglobin 2.8 GM/DL Hematocrit 9.6 % Mean Corpuscular Volume 118.9 FL Mean Corpuscular Hemoglobin 34.6 PG Mean Corpuscular Hemoglobin 29.1 % Concent Red Cell Distribution Width 23.2 % Platelet Count 55 TH/MM3 Mean Platelet Volume 10.3 FL Neutrophils (%) (Auto) 75.3 % Lymphocytes (%) (Auto) 20.9 % Monocytes (%) (Auto) 2.7 % Eosinophils (%) (Auto) 0.6 % Basophils (%) (Auto) 0.5 % Neutrophils # (Auto) 9.0 TH/MM3 Lymphocytes # (Auto) 2.5 TH/MM3 Monocytes # (Auto) 0.3 TH/MM3 Eosinophils # (Auto) 0.1 TH/MM3 Basophils # (Auto) 0.1 TH/MM3 CBC Comment AUTO DIFF Differential Total Cells 100 Counted Neutrophils % (Manual) 72 % Band Neutrophils % 6 % Lymphocytes % 7 % Monocytes % 3 % Eosinophils % 1 % Neutrophils # (Manual) 10.7 TH/MM3 Metamyelocytes 7 % Myelocytes 4 % Nucleated Red Blood Cells 6 /100 WBC Differential Comment FINAL DIFF MANUAL Platelet Estimate LOW Platelet Morphology Comment NORMAL Acanthocytes 1+ Keratocytes OCC Prothrombin Time 54.7 SEC Prothromb Time International 4.6 RATIO Ratio Activated Partial GREATER THAN Thromboplast Time 277.5 SEC Fibrinogen 50 mg/dL Sodium Level 142 MEQ/L Potassium Level 5.6 MEQ/L Chloride Level 104 MEQ/L Carbon Dioxide Level 13.3 MEQ/L Anion Gap 25 MEQ/L Blood Urea Nitrogen 48 MG/DL Creatinine 3.69 MG/DL Estimat Glomerular Filtration 18 ML/MIN Rate Random Glucose 115 MG/DL Calcium Level 7.3 MG/DL Protein Corrected Calcium 10.2 MG/DL Phosphorus Level 10.0 MG/DL Magnesium Level 2.3 MG/DL Total Bilirubin 6.5 MG/DL Aspartate Amino Transf 92 U/L (AST/SGOT) Alanine Aminotransferase 37 U/L (ALT/SGPT) Alkaline Phosphatase 122 U/L Total Protein 2.6 GM/DL Albumin 0.9 GM/DL Lipase 1039 U/L Thyroid Stimulating Hormone 2.330 uIU/ML 3rd Gen Ethyl Alcohol Level LESS THAN 3 MG/DL Blood Type A POSITIVE Antibody Screen NEGATIVE Crossmatch Leukocyte-Reduced Red Blood Cells Blood Bank Comment Blood Gas Puncture Site RT FEMORAL Blood Gas Patient Temperature 98.6 Blood Gas HCO3 6 mmol/L Blood Gas Base Excess -27.0 mmol/L Blood Gas Oxygen Saturation 96 % Arterial Blood pH 6.66 Arterial Blood Partial 51 mmHg Pressure CO2 Arterial Blood Partial 273 mmHG Pressure O2 Arterial Blood Oxygen Content 10.1 Vol % Arterial Blood 0.7 % Carboxyhemoglobin Arterial Blood Methemoglobin 0.9 % Blood Gas Hemoglobin 6.9 G/DL Oxygen Delivery Device VENTILATOR Blood Gas Ventilator Setting 600/16/+5 Blood Gas Inspired Oxygen 100 % MDM Medical Decision Making Medical Screen Exam Complete: Yes Emergency Medical Condition: Yes Medical Record Reviewed: Yes Interpretation(s) Twelve-lead EKG was reviewed by me. Normal sinus rhythm, normal axis, nonspecific ST-T wave changes. Heart rate of 84 bpm. Differential Diagnosis Variceal bleeding, gastric ulcer bleeding, duodenal bleeding Narrative Course 5:34 PM after few rounds of epinephrine in the emergency room and changing the ET tube from Combitube by me patient finally had a ROSC. NG tube was inserted which suctioned 50 cc of bright red blood. Patient was getting IV fluid bolus and 4 units of emergency release blood was ordered along with 2 units of platelets, 2 units of FFP and 2 units of cryoprecipitate. I discussed the case with GI specialist Dr. Lynn as well as the counseling services director Dr. Flores. The counseling services director was down in the emergency room and assessed the patient. Patient is in critical condition. He spoke with patient's mother and asked them to come to the emergency room. He is considering making the patient DNR because of the medical futility at this point. Hemoglobin and hematocrit are critically low. Four more units of crossmatch PRBC has been ordered. Central line was inserted by me. Please refer to my procedure note. This was a difficult procedure and initial multiple attempts for subclavian line was negative. Finally, I inserted a left IJ under ultrasound guidance which was inserted on the third attempt. Patient has an expanding neck hematoma. Direct pressure was applied. Chest x-ray has been read by the radiologist and the lines and tubes are in good position. Awaiting for the mother to arrive. Patient's PT, INR and PTT are significantly elevated. Once again patient is in a very critical condition with a high risk of DIC. Critical Care Narrative Aggregate critical care time was 120 minutes. Time to perform other separately billable procedures was not included in the critical care time. My time did not include minutes spent treating any other patients simultaneously or on activities that did not directly contribute to the patient's treatment. The services I provided to this patient were to treat and/or prevent clinically significant deterioration that could result in: CPR, ROSC, hemorrhagic shock, respiratory failure, ventilator management I provided critical care services requiring my management, as noted below: Chart data review, documentation time, medication orders and management, vital sign assessments/reviewing monitor data, ordering and reviewing lab tests, ordering and interpreting/reviewing x-rays and diagnostic studies, care of the patient and discussion of the patient with the admitting physicians. Procedures Procedure Narrative After the risks and benefits were discussed the following procedure was performed: INTUBATION: The patient was put in optimal position for the procedure. Rapid sequence intubation was initiated by me using 0 milligrams of etomidate IV and 0 milligrams of 0 IV. The patient was intubated with a 7.5 cuffed endotracheal tube. Tube placement was confirmed by visualization of the tube and balloon passing through the cords, capnometry and subsequent chest x-ray. Breath sounds were equal and well aerated bilaterally postintubation. No breath sounds over stomach. Patient tolerated procedure well. CENTRAL VENOUS LINE: The site was prepped with Betadine and sterilely draped. It was infiltrated with 1% lidocaine plain. The deep vein was cannulated using normal Seldinger technique. A triple lumen central line was placed in the left IJ site and secured with simple interrupted suture. The site was sterilely dressed. The patient tolerated the procedure well. Emergency department US guided peripheral IV was performed with patient consent. Linear probe was used in the transverse views of the peripheral vein to assist with vascular access. EKG Prior to Arrival: No Physician Communication Physician Communication Dr. Flores, Dr. Lynn Diagnosis Primary Impression: Cardiorespiratory arrest Additional Impressions: GI bleed Qualified Code: K92.2 - Gastrointestinal hemorrhage, unspecified gastrointestinal hemorrhage type Respiratory failure Qualified Code: J96.00 - Acute respiratory failure, unspecified whether with hypoxia or hypercapnia Coagulopathy hemorrhagic shock Admitting Information Admitting Physician Requests: Admit Scripts No Active Prescriptions or Reported Meds Theron Cheng MD Dec 14, 2016 17:09
[2016-12-14] MEDS ORDERED: MISCELLANEOUS NURSING INFORMATION XX SCH (17:15)
[2016-12-14] MEDS ORDERED: fentaNYL DRIP 250 ML IV SCH (17:15)
[2016-12-14] MEDS ORDERED: ONDANSETRON HCL 4 MG/2 ML VIAL IV PRN (17:15)
[2016-12-14] MEDS ORDERED: MAGNESIUM HYDROXIDE SUSP 30 ML CUP PO PRN (17:15)
[2016-12-14] MEDS ORDERED: PROPOFOL 1000 MG/100 ML INJ 100 ML IV SCH (17:15)
[2016-12-14] MEDS ORDERED: SENNOSIDES 8.6 MG TAB PO PRN (17:15)
[2016-12-14] MEDS ORDERED: SODIUM CHLORIDE 0.9% FLUSH 10 ML FLUSH IV FLUSH PRN (17:15)
[2016-12-14] MEDS ORDERED: BISACODYL 10 MG SUPP RECTAL PRN (17:15)
[2016-12-14] MEDS ORDERED: CHLORHEXIDINE GLUCONATE 2 % 1 PACK (2 CLOTHS) TOP PRN (17:15)
[2016-12-14] MEDS ORDERED: LACTULOSE SYRUP 20 GM/30 ML CUP PO PRN (17:15)
[2016-12-14] MEDS ORDERED: RESP: ALBUTEROL 2.5 MG/3 ML NEB (PRN) INH (17:15)
[2016-12-14 17:19] LABS: BASOPHIL # 0.1 TH/MM3 (0-0.2); BASOPHIL % 0.5 % (0.0-2.0); EOSINOPHIL # 0.1 TH/MM3 (0-0.4); EOSINOPHIL % 0.6 % (0.0-4.0); LYMPH % 20.9 % (9.0-44.0); LYMPHOCYTE # 2.5 TH/MM3 (1.0-4.8); MEAN CELL VOLUME 118.9 FL (80.0-100.0); MEAN CORPUSCULAR HEMOGLOBIN 34.6 PG (27.0-34.0); MONO % 2.7 % (0.0-8.0); NEUT % 75.3 % (16.0-70.0); PLATELET COUNT 55 TH/MM3 (150-450); RED CELL DISTRIBUTION WIDTH 23.2 % (11.6-17.2)
--- NOTE | 2016-12-14 17:20 | HHI.HP ---
[facility] Service Critical Care Medicine Primary Care Physician Unknown Admission Diagnosis Acute posthemorrhagic blood loss anemia Diagnosis: (1) Coagulopathy Diagnosis: Principal (2) Acute respiratory failure Diagnosis: Principal (3) Lactic acidosis Diagnosis: Principal (4) Thrombocytopenia Diagnosis: Principal (5) Acute posthemorrhagic anemia Diagnosis: Principal (6) GI bleed Diagnosis: Principal (7) Liver failure Diagnosis: Principal (8) Hyperkalemia Diagnosis: Principal (9) Total bilirubin, elevated Diagnosis: Principal (10) Hypoalbuminemia Diagnosis: Principal (11) Cardiorespiratory arrest Diagnosis: Principal (12) SIRS (systemic inflammatory response syndrome) Diagnosis: Principal Chief Complaint: Unresponsive with upper GI bleed/coagulopathy Travel History International Travel<30 Days: No Contact w/Intl Traveler <30 Da: No Traveled to Known Affected Are: No Sepsis Criteria SIRS Criteria (2 or more): Heart rate over 90, WBC > 64161, < 4000 or > 10% bands Criteria Outcome: Meets SIRS criteria History of Present Illness 46 year old male. Date of admission 12/14/2016. Past medical history includes likely underlying hepatic cirrhosis, recurrent injury, history of bright red blood per rectum. He had an recent recent admission 12/02/2016 at [facility] for upper GI bleed. Hemoglobin at discharge was 8.3. He received 3 units of Pack red blood cells and 2 FFP. He also had a paracentesis of 2.5 L. At that time patient had an upper endoscopy by Dr. Hilliard which revealed LA class a esophagitis, distal esophageal varix nonbleeding, severe portal gastropathy or deep bronchial mucosa normal.: Revealed internal and external hemorrhoids. Patient left [facility] 12/05/2016 According to mother Gisele, with just returned from [place] to see her son, patient was going today of abdominal pain. She had just returned from the start given ice pack when she was unable to contact her son in another room. She broke, down the door and noticed him lying unresponsive on the floor with blood from mouth. E VAC was called. Patient was in PEA and CPR was initiated 10 minutes. Patient was intubated with a Combitube and received CPR in route. Duration CPR greater than 30 minutes as received an additional 25 minutes at this facility. Patient received multiple rounds of epinephrine here in the ED. Hemoglobin post code was 2.8. ABG pH 6.66, PCO2 51, PO2 273, bicarbonate 6, base index -27. Patient received 4 units trauma blood, 2 FFP and 2 cryo-. Remains on dopamine at 20 mcg/kg/m and norepinephrine at 12 mg a minute. A left IJ central the ED physician was currently has a enlarging hematoma. Remainder labs including coags and BMP pending at time of dictation. On examination, patient is on no sedation but has pupils about 7 millimeters bilaterally and fixed. Negative doll's eyes. Not overbreathing the ventilator. Ordered patient is on Protonix and octreotide drip. 2 units FFP and cryoprecipitate yet to be transfused. Patient is acutely ill and likely nonsurvivable. GI as the thyroid the patient. Not a candidate for endoscopy at this time. Recommended consideration of Nolberto tube. Review of Systems ROS Limitations: Intubated Past Family Social History Allergies: Coded Allergies: No Known Allergies (Unverified , 12/02/16) Past Medical History Portal gastropathy Abdominal ascites Distal esophageal varix LA class a esophagitis Anemia External and internal hemorrhoids Hyponatremia Chronic kidney disease creatinine recently 2.1 Hypercoagulable state due to underlying liver disease Past Surgical History Right knee Reported Medications None Active Ordered Medications Reviewed in EMR Family History Mother has diabetes mellitus. Social History 2 beers daily reported. Heavy drinker up to 3 years ago. 2-3 cigarettes daily. No IV drug use history Physical Exam Physical Exam GENERAL: 46 show male critically ill currently in bed critically ill SKIN: Cool and dry. Jaundiced. Multiple tattoos bilateral lower extremity's. HEAD: Atraumatic. Normocephalic. EYES: Pupils equal and round about 7 mm bilaterally and nonreactive. Positive scleral icterus. As of scleral edema ENT: Positive nasal bleeding and oral bleeding. Mucous membranes actively oozing NECK: Trachea midline. No JVD. Left IJ with large hematoma CARDIOVASCULAR: Regular rate and rhythm. 1, S2. No S4. No murmurs, clicks or gallops or rubs RESPIRATORY: Minutes breath sounds throughout.. GASTROINTESTINAL: Abdomen is distended, positive secession splash. No bowel sounds appreciated. MUSCULOSKELETAL: Extremities with 1+ edema. No obvious deformities. NEUROLOGICAL: Unresponsive on the ventilator on no sedation. No gag. No corneal reflex. No withdrawal to pain in all 4 extremities Laboratory Laboratory Tests Test 12/14/16 12/14/16 15:45 16:36 Blood Type A POSITIVE Blood Bank Comment Blood Gas Puncture Site RT FEMORAL Blood Gas Patient Temperature 98.6 Blood Gas HCO3 6 Blood Gas Base Excess -27.0 Blood Gas Oxygen Saturation 96 Arterial Blood pH 6.66 Arterial Blood Partial 51 Pressure CO2 Arterial Blood Partial 273 Pressure O2 Arterial Blood Oxygen Content 10.1 Arterial Blood 0.7 Carboxyhemoglobin Arterial Blood Methemoglobin 0.9 Blood Gas Hemoglobin 6.9 Oxygen Delivery Device VENTILATOR Blood Gas Ventilator Setting 600/16/+5 Blood Gas Inspired Oxygen 100 Imaging Chest x-ray revealed left IJ in SVC. ET tube to 3 cm above the cecelia. No acute cardiopulmonary findings Assessment and Plan Assessment and Plan Neuro/Psych: Likely anoxic encephalopathy. Propofol/fentanyl for sedation/analgesia while intubated Goal of RA SS -2 Daily sedation vacation Ammonia level pending. CT head pending Placed on vitamin to bag daily for EtOH use CV: Hypovolemic shock secondary to acute hemorrhage Lactic acidosis Currently on dopamine at 20 mg/kg minutes/norepinephrine at 20 mg/m for maintain MAP. In 65 Status post 4 units uncrossed PRBCs. 4 units crossed blood given currently Trend serial lactates. Currently pending EKG pending Resp: Acute hypoxemic respiratory failure PRVC 20/500/1.5/10/100 Ventilator bundle Duo nebs every 6 hours with albuterol every 2 hours when necessary dyspnea Hyperventilation in light of acute and get metabolic acidosis Follow-up ABG at 1900 and adjust ventilator GI: Likely upper GI bleed LA class a esophagitis History of distal esophageal varix Severe portal gastropathy Internal and external hemorrhoids Likely liver cirrhosis Abdominal ascites Elevated transaminases Hypoalbuminemia Elevated total bilirubin OG tube to LIWS Currently in Protonix drip after 80 mg bolus at 8 mg an hour Octreotide at 50 mcg/hr GI has been consulted - Dr. Marroquin. Not a candidate for endoscopy this time LFTs pending Consideration for Nolberto tube : Henderson catheter has been placed for accurate I's and O's in a critically ill patient Endo: Sliding-scale insulin if indicated to maintain euglycemia/low regimen with every 6 hours Accu-Cheks TSH and cortisol pending Renal: Acute on Chronic kidney disease - likely hepatorenal syndrome and currently 3.6. Was 2.1 on discharge Currently no urine output Accurate I's and O's Heme: Acute post hemorrhagic anemia Coagulopathy - likely secondary underlying liver disease Hemoglobin 2.8 on admission. Status post 4 units emergency release blood. 4 more units being transfused currently INR 4.5. PTT greater than 277 2 units FFP, 2 cryo-and K Centra ordered Serial hemoglobins and coags ID: Prophylactic Rocephin in light of abdominal ascites and upper GI bleed MSK: PT evaluate and treat FEN: Chronic hyponatremia Hyperkalemia BMP currently pending Status post bicarbonate, calcium, insulin and D50. Recheck in 3 hours Access access - Left IJ CVL placed by ED physician 12/14 Prophylaxis - GI - Protonix drip - DVT - contraindicated pharmacological rise in light of acute upper GI hemorrhage Critical Care: The total critical care time was 65 minutes. Time to perform other separately billable procedures was not included in the critical care time. Discussed with mother Gisele. She is waiting for her to arrive from [place]. Extremely poor prognostication outlook. She is aware. has been called for last rights.. Code Status Full code Discussed Condition With Mother Gisele. Dr. Cheng ED physician. Care plan discussed and all questions answered. Problem Qualifiers (1) Acute respiratory failure: Qualified Code: J96.00 - Acute respiratory failure, unspecified whether with hypoxia or hypercapnia (2) GI bleed: Qualified Code: K92.2 - Gastrointestinal hemorrhage, unspecified gastrointestinal hemorrhage type (3) Liver failure: Qualified Code: K72.10 - Chronic liver failure without hepatic coma Tyrel Flores MD Dec 14, 2016 17:19
--- NOTE | 2016-12-14 17:22 | RADRPT ---
EXAM DATE/TIME: 12/14/2016 16:17 [facility] COMPARISON: CHEST SINGLE AP, December 02, 2016, 17:33. INDICATIONS : Shortness of breath. MEDICAL HISTORY : None. SURGICAL HISTORY : None. ENCOUNTER: Initial ACUITY: 1 day PAIN SCORE: Non-responsive. LOCATION: Bilateral chest FINDINGS: The endotracheal tube has its tip approximately 2 cm above the cecelia. A nasogastric tube has its ti p in the stomach. Moderate perihilar infiltrates are noted consistent with probable pulmonary edema. The heart is enlarged. A left internal jugular central line has its tip in the superior vena cava. There is no pneumothorax. CONCLUSION: 1. Moderate perihilar infiltrates bilaterally consistent with probable pulmonary edema. Clinical cor relation is recommended. 2. Cardiomegaly. 3. Multiple tubes and lines are in good positions. Tristan Cope MD on December 14, 2016 at 17:16 Board Certified Radiologist. This report was verified electronically.
[2016-12-14 17:23] LABS: HEMO FLAGS AUTO DIFF; RED BLOOD COUNT 0.81 MIL/MM3 (4.50-5.90)
[2016-12-14 17:26] LABS: HEMATOCRIT 9.6 % (39.0-51.0)
[2016-12-14] MEDS ORDERED: SODIUM BICARBONATE 8.4% INJ 50 MEQ/50 ML SYR IV PUSH ONE (17:30)
[2016-12-14 17:37] LABS: INTERNATIONAL NORMALIZED RATIO 4.6 RATIO; PROTHROMBIN TIME - PATIENT 54.7 SEC (9.8-11.6)
[2016-12-14 17:41] LABS: APTT (PATIENT) GREATER THAN 277.5 SEC (24.3-30.1)
[2016-12-14 17:54] LABS: ALKALINE PHOSPHATASE 122 U/L (45-117); ALT (GPT) 37 U/L (12-78); ANION GAP 25 MEQ/L (5-15); AST (GOT) 92 U/L (15-37); BICARBONATE 13.3 MEQ/L (21.0-32.0); BLOOD UREA NITROGEN 48 MG/DL (7-18); CALCIUM-PROTEIN CORRECTED 10.2 MG/DL (8.5-10.1); CHLORIDE 104 MEQ/L (98-107); GLOMERULAR FILTRATION RATE 18 ML/MIN (>89); POTASSIUM 5.6 MEQ/L (3.5-5.1); SODIUM (NA) 142 MEQ/L (136-145)
[2016-12-14] MEDS ORDERED: PHYTONADIONE INJ 10 MG in SODIUM CHLORIDE 0.9% INJ 50 ML IV ONE (18:00)
[2016-12-14] MEDS ORDERED: ARTIFICIAL TEARS OPTH SOLN 15 ML BTL EACH EYE SCH (18:00)
[2016-12-14] MEDS ORDERED: PROTHROMBIN COMPLEX CONC INJ 2,500 UNITS in SYRINGE/BAG 1 EA IV ONE (18:00)
[2016-12-14 18:02] LABS: TOTAL BILIRUBIN ADULT 6.5 MG/DL (0.2-1.0)
--- NOTE | 2016-12-14 18:09 | PD.CONS ---
HPI History of Present Illness This is a 46 year old male with a history of alcohol abuse, portal hypertensive gastropathy, alcoholic hepatitis, ascites, and liver cirrhosis who was found down for an unknown period of time in a puddle of red blood. He was recently hospitalized from 12/02/16- 12/05/16 for rectal bleeding. He had reported that he had been having intermittent rectal bleeding for a few years, but that it recently became worse. He was admitted for gastrointestinal bleeding, liver cirrhosis with ascites, elevated LFTs/alcoholic hepatitis, acute kidney injury, anemia, and electrolyte abnormalities. He underwent a paracentesis on 12/03/16 and had 2300cc of fluid removed. He was given rocephin for empiric coverage and his fluid was sent. Final peritoneal fluid culture was negative. He was also evaluated with EGD/Colonoscopy (12/04/16)------> LA Class A esophagitis noted , portal hypertensive gastropathy was found in the gastric body, normal duodenal mucosa, retroflexed views revealed no abnormalities, colonic mucosa appeared normal, retroflexed views revealed internal and medium internal hemorrhoids, external hemorrhoids. He then left the hospital against medical advice on 12/05/16. He was found unresponsive by his mother. EMS was called and he was found to be in asystole and ACLS was initiated. According to the nurse, he received CPR for 10 minutes in the field and another additional 25 minutes here in the hospital. He is currently in the ER, unresponsive, intubated, on the ventilator. He is hypotensive and bradycardic and on Levophed and Dopamine. He is oozing bright red blood from his nares and he has a OGT that is draining large amount of bright red blood. He is also passing a large amount of bright red blood from his rectum. He has massive ascites and bilateral lower extremity edema. On admission he received 4 units of PRBC, 2 units of FFP, one unit of platelets, and 1 unit of pooled cryoprecipitate. H/H after this transfusion was 2.8/9.6. Platelets 55. PT 54.7, INR 4.6. An additional 4 units of PRBC have been ordered. An octreotide and protonix gtt has been ordered. (Mary IsabelP) [facility] Past Medical History Portal gastropathy Liver cirrhosis LA Class A Esophagitis Internal/external hemorrhoids Gastrointestinal bleeding Alcoholic hepatitis Ascites ANA PAULA Coagulopathy ETOH abuse Past Surgical History Knee surgery (Mary Isabel) Coded Allergies: No Known Allergies (Unverified , 12/02/16) Medications Allergies Coded Allergies Type Severity Reaction Last Updated Verified No Known Allergies 12/02/16 No Active Scripts Medications Dose Route/Sig Days Date Category No Active Prescriptions or Reported Medications Rx Family History Unable to obtain Social History ETOH abuse Unable to obtain (Mary Isabel) Review of Systems ROS Unable to obtain (Mary Isabel) GI Exam Vitals I&O Vital Signs Date Time Temp Pulse Resp B/P Pulse Ox O2 Delivery O2 Flow Rate FiO2 12/14/16 16:00 98 100 12/14/16 16:00 98 Ventilator 100 Laboratory Test 12/14/16 12/14/16 15:45 16:36 White Blood Count 12.0 TH/MM3 Red Blood Count 0.81 MIL/MM3 Hemoglobin 2.8 GM/DL Hematocrit 9.6 % Mean Corpuscular Volume 118.9 FL Mean Corpuscular Hemoglobin 34.6 PG Mean Corpuscular Hemoglobin 29.1 % Concent Red Cell Distribution Width 23.2 % Platelet Count 55 TH/MM3 Mean Platelet Volume 10.3 FL Neutrophils (%) (Auto) 75.3 % Lymphocytes (%) (Auto) 20.9 % Monocytes (%) (Auto) 2.7 % Eosinophils (%) (Auto) 0.6 % Basophils (%) (Auto) 0.5 % Neutrophils # (Auto) 9.0 TH/MM3 Lymphocytes # (Auto) 2.5 TH/MM3 Monocytes # (Auto) 0.3 TH/MM3 Eosinophils # (Auto) 0.1 TH/MM3 Basophils # (Auto) 0.1 TH/MM3 CBC Comment AUTO DIFF Blood Type A POSITIVE Antibody Screen NEGATIVE Crossmatch Leukocyte-Reduced Red Blood Cells Blood Bank Comment Blood Gas Puncture Site RT FEMORAL Blood Gas Patient Temperature 98.6 Blood Gas HCO3 6 mmol/L Blood Gas Base Excess -27.0 mmol/L Blood Gas Oxygen Saturation 96 % Arterial Blood pH 6.66 Arterial Blood Partial 51 mmHg Pressure CO2 Arterial Blood Partial 273 mmHG Pressure O2 Arterial Blood Oxygen Content 10.1 Vol % Arterial Blood 0.7 % Carboxyhemoglobin Arterial Blood Methemoglobin 0.9 % Blood Gas Hemoglobin 6.9 G/DL Oxygen Delivery Device VENTILATOR Blood Gas Ventilator Setting 600/16/+5 Blood Gas Inspired Oxygen 100 % Physical Examination HEENT: Atraumatic; + jaundice. CHEST: OETT to vent, course breath sounds CARDIAC: Hypotensive, bradycardia ABDOMEN: Firm distended with massive ascites, hepatosplenomegaly; bowel sounds are present in all four quadrants. EXTREMITIES: BLE edema. SKIN: + jaundice. Blister to ble [employer]: Unresponsive (Mary Isabel RIKA) Assessment and Plan Plan ASSESSMENT: - Massive GI Bleeding in patient with known liver cirrhosis, coagulopathy, etoh abuse. Pt was found down in puddle of bright red blood. EMS was called and he was found to be in asystole. ACLS protocol was initiated, he was intubated, and brought to the ER for further treatment. He received CPR for 10 minutes in field and 25 minutes here in the ER per the nurse. He was given 4 units of PRBC, 2 units of FFP, one unit of platelets, and 1 unit of pooled cryoprecipitate has been ordered. Labs after transfusion revealed HH 2.8/ 9.6. Additional 4 units of PRBC have been ordered. He is having large amount of bright red blood from OGT and rectally. Protonix and Octreotide gtt have been ordered. He has PT 54.7, INR 4.6, APTT pending. Plt are 55. Unfortunately, he is not stable for any endoscopic procedures at this time. He is hypotension and bradycardia, despite being maxed out on Levophed/ Dopamine. His HR is now in the 30's. We do not have his CMP resulted yet, but his other labs and clinical status is consistent with liver failure. His prognosis is poor and we are unable to perform any endoscopic treatment at this time secondary to medical condition - Liver failure/cirrhosis/recent alcoholic hepatitis. Pt with known cirrhosis. We do not have his CMP resulted yet, but his labs on 12/05 when he left [facility] was T. Bili 25.3, AST 97, ALT 39, Alk Phosph 104. He has platelets 55, PT 54.7, INR 4.6. - Coagulopathy, Thrombocytopenia. platelets 55, PT 54.7, INR 4.6. 2 units of FFP, one unit of platelets, and 1 unit of pooled cryoprecipitate has been ordered - Ascites, massive. During recent hospitalization he had paracentesis (12/03/16)- ---> 2300cc of fluid removed. Final peritoneal fluid culture was negative. He was not able to be started on diuretics secondary to his ARF. He left [facility]. - CMP pending, but he had ANA PAULA prior to leaving [facility] on last admission. Likely ARF/Hepatorenal - Portal gastropathy, Esophagitis. Protonix gtt/octreotide gtt ordered. - Asystole. Pt found down in puddle of bright red blood, large amount. He was in asystole at the time EMS arrived and ACLS was initiated. Nurse reports that he received 10 minutes in field and then another 25 minutes here in ER. Currently hypotensive, bradycardic. On dopamine, levophed. - Recent admission 12/02/16- 12/05/16 for gastrointestinal bleeding, liver cirrhosis with ascites, elevated LFTs/alcoholic hepatitis, acute kidney injury, anemia, and electrolyte abnormalities. He underwent a paracentesis on 12/03/16 and had 2300cc of fluid removed. He was given rocephin for empiric coverage and his fluid was sent. Final peritoneal fluid culture was negative. He was also evaluated with EGD/Colonoscopy (12/04/16)------> LA Class A esophagitis noted, portal hypertensive gastropathy was found in the gastric body, normal duodenal mucosa, retroflexed views revealed no abnormalities, colonic mucosa appeared normal, retroflexed views revealed internal and medium internal hemorrhoids, external hemorrhoids. He then left the hospital against medical advice on 12/05/16. PLAN: - NPO - NGT to LIWS - Protonix Gtt - Octreotide Gtt - Agree with transfusions - Monitor labs - Unfortunately, patient is in liver failure with massive GI bleeding and is not stable for any endoscopic procedures. He has a poor prognosis and will not likely survive. - Pt seen and examined by Dr. Marroquin and myself and this note is written on his behalf (Mary Isabel) Physician Comments Patient seen and examined Agree with above Poor prognosis Monitor labs Transfuse as needed Coagulation profile needs correction Not stable for endoscopy can contemplate Nolberto tube (Chris Marroquin MD) Mary Isabel Dec 14, 2016 18:09 Chris Marroquin MD Dec 14, 2016 18:31
[2016-12-14] MEDS ORDERED: INSULIN HUMAN REGULAR 1,000 UNITS/10 ML VIAL IV PUSH ONE (18:15)
[2016-12-14] MEDS ORDERED: SODIUM BICARBONATE 8.4% SOLN 50 MEQ/50 ML VIAL SLOW IVP ONE (18:15)
[2016-12-14] MEDS ORDERED: DEXTROSE 50% IN WATER 50 ML VIAL(D50) IV PUSH ONE (18:15)
[2016-12-14] MEDS ORDERED: ALBUMIN HUMAN 25% 25 GM/100 ML BAGP IV ONE (18:30)
[2016-12-14] MEDS ORDERED: CALCIUM GLUCONATE 10% 1 GM/10 ML VIAL SLOW IVP ONE (18:30)
[2016-12-14 19:13] LABS: BANDS 6 % (0-6); CORRECTED NUCLEATED RBC 6 /100 WBC (0-0); EOSINOPHILS 1 % (0-4); METAMYELOCYTES 7 % (0-1); MYELOCYTES 4 % (0-0); NEUTROPHIL # MANUAL DIFF 10.7 TH/MM3 (1.8-7.7); PLATELET ESTIMATE SMEAR LOW (NORMAL); POLYS (SEG NEUTROPHILS) 72 % (16-70); SCAN/DIFF FINAL DIFF MANUAL; WBC DIFF SAMPLE 100
[2016-12-14 19:14] LABS: KERATOCYTES OCC (NORMAL); PLATELET MORPHOLOGY NORMAL (NORMAL)
[2016-12-14 19:15] LABS: ACANTHOCYTES 1+ (NORMAL)
[2016-12-14] MEDS ORDERED: MULTIVITAMIN INJ 10 ML, THIAMINE INJ 100 MG, FOLIC ACID INJ 1 MG in SODIUM CHLORID 0.9%... IV ONE (19:15)
[2016-12-14] MEDS: SODIUM BICARBONATE 8.4% INJ 150 MEQ in WATER STERILE FOR INJ 850 ML IV SCH (19:20)
[2016-12-14] MEDS: VASOPRESSIN INJ 40 UNITS in DEXTROSE 5% IN WATER 100ML INJ 98 ML IV SCH ×2 (19:21)
[2016-12-14 19:32] LABS: MAGNESIUM 2.3 MG/DL (1.5-2.5)
[2016-12-14 19:40] LABS: BLOOD GAS BASE EXCESS -24.7 mmol/L (-2-2); BLOOD GAS HCO3 6 mmol/L (22-26); BLOOD GAS METHEMOGLOBIN 0.8 % (0-2); BLOOD GAS O2 HGB SATURATION 97 % (90-100); BLOOD GAS OXYGEN CONTENT 12.7 Vol % (12.0-20.0); BLOOD GAS PCO2 39 mmHg (38-42); BLOOD GAS PO2 176 mmHG (61-120); BLOOD GAS TOTAL HGB 9.1 G/DL (12.0-16.0); TEMP CORR TO 98.6
[2016-12-14 19:41] LABS: CRITICAL VALUE YES; OXYGEN DEVICE VENTILATOR; VENT SETTINGS PRVC/AC
[2016-12-14 19:42] LABS: DRAW SITE LT RADIAL; FIO2 100 %; NUMBER OF ARTERIAL PUNCTURES 1; STAT NO; ULNAR PULSE PRESENT
[2016-12-14] MEDS: DOPamine INJ PREMIX 500 ML IV SCH ×2 (19:59→23:16)
[2016-12-14] MEDS: NOREPINEPHRINE-DEXTROSE DRIP 250 ML IV SCH (19:59)
[2016-12-14] MEDS ORDERED: SUCCINYLCHOLINE CHLORIDE 200 MG/10 ML VIAL ONE (20:19)
[2016-12-14 20:35] LABS: HEMATOCRIT 22.5 % (39.0-51.0)
[2016-12-14 20:39] LABS: REVIEW FLAG FINAL
[2016-12-14 20:49] LABS: FIBRINOGEN LESS THAN 50 mg/dL (227-377)
[2016-12-14] MEDS: DOCUSATE SODIUM 50 MG/SENNA 8.6 MG TAB PO SCH (21:00)
[2016-12-14 21:12] LABS: APTT (PATIENT) GREATER THAN 277.5 SEC (24.3-30.1); INTERNATIONAL NORMALIZED RATIO 2.6 RATIO; PROTHROMBIN TIME - PATIENT 30.5 SEC (9.8-11.6)
--- NOTE | 2016-12-14 21:16 | RADRPT ---
EXAM DATE/TIME: 12/14/2016 20:39 [facility] COMPARISON: CHEST SINGLE AP, December 14, 2016, 16:17. CHEST SINGLE AP, December 14, 2016, 20:31. INDICATIONS : Tube placement MEDICAL HISTORY : Ascites. Diarrhea. Nausea. Vomiting. Fatigue SURGICAL HISTORY : Unknown ENCOUNTER: Subsequent ACUITY: 1 day PAIN SCORE: Non-responsive. LOCATION: Bilateral chest FINDINGS: Single AP view of the chest. Endotracheal tube, nasogastric tube, and left IJ central venous catheter remains in place. A second tube is now seen with the tip in the region of the stomach. Bilateral pul monary opacity with perihilar predominance slightly more prominent than on the comparison study. No e vidence of pneumothorax or pleural effusion. CONCLUSION: Second orogastric tube or nasogastric tube with the tip in the stomach. Slight increase in bilateral pulmonary opacity. Gray Mora MD on December 14, 2016 at 21:12 Board Certified Radiologist. This report was verified electronically.
--- NOTE | 2016-12-14 21:18 | RADRPT ---
EXAM DATE/TIME: 12/14/2016 20:31 [facility] COMPARISON: CHEST SINGLE AP, December 14, 2016, 20:39. CHEST SINGLE AP, December 14, 2016, 16:17. INDICATIONS : Respiratory distress MEDICAL HISTORY : Ascites. Diarrhea. Nausea. Vomiting. Fatigue SURGICAL HISTORY : Unknown ENCOUNTER: Subsequent ACUITY: 1 day PAIN SCORE: Non-responsive. LOCATION: Bilateral chest FINDINGS: Endotracheal tube, left IJ central venous catheter, and 2 orogastric or nasogastric tubes in place. B ilateral pulmonary opacity with perihilar predominance increased from the prior study at 1617. No gladis dence of pleural effusion or pneumothorax. CONCLUSION: Increased bilateral pulmonary opacity when compared to prior study at 1617. Gray Mora MD on December 14, 2016 at 21:14 Board Certified Radiologist. This report was verified electronically.
[2016-12-14] MEDS: RESP: ALBUTEROL 2.5 MG/IPRATROPIUM 0.5 MG NEB (SCH) INH (21:37)
[2016-12-14] MEDS: EPINEPHrine 2 MG/D5W 250 ML IV SCH ×2 (21:37)
[2016-12-14] MEDS: OCTREOTIDE INJ 500 MCG in SODIUM CHLORID 0.9% 500 ML INJ 500 ML IV SCH (22:38)
[2016-12-14] MEDS: PANTOPRAZOLE INJ 80 MG in SODIUM CHLORIDE 0.9% INJ 100 ML IV SCH (22:38)
[2016-12-14 22:43] LABS: LACTIC ACID GHOST NOT REPORTABLE
[2016-12-14] MEDS: cefTRIAXone INJ 1,000 MG in SODIUM CHLORIDE 0.9% INJ 100 ML IV SCH (23:31)
[2016-12-14] MEDS: SODIUM CHLORIDE 0.9% FLUSH 10 ML FLUSH IV FLUSH SCH (23:31)
[2016-12-15] VITALS (31 sets, daily range): BP systolic 45–61; BP diastolic 19–36; PULSE 40–69; RESP 16; O2SAT 0–96
[2016-12-15] MEDS: NOREPINEPHRINE-DEXTROSE DRIP 250 ML IV SCH ×5 (00:09→17:25)
[2016-12-15] MEDS: EPINEPHrine 2 MG/D5W 250 ML IV SCH ×4 (00:09→13:47)
[2016-12-15] MEDS: SODIUM BICARBONATE 8.4% INJ 150 MEQ in WATER STERILE FOR INJ 850 ML IV SCH ×2 (02:11→17:26)
[2016-12-15] MEDS ORDERED: CHLORHEXIDINE GLUCONATE 2 % 1 PACK (2 CLOTHS) TOP SCH (04:00)
[2016-12-15] MEDS: RESP: ALBUTEROL 2.5 MG/IPRATROPIUM 0.5 MG NEB (SCH) INH ×3 (04:10→14:55)
[2016-12-15 05:23] LABS: AUTOMATED NEUTROPHIL # 3.7 TH/MM3 (1.8-7.7); BASOPHIL % 0.4 % (0.0-2.0); EOSINOPHIL % 0.4 % (0.0-4.0); LYMPH % 28.1 % (9.0-44.0); LYMPHOCYTE # 1.5 TH/MM3 (1.0-4.8); MEAN CELL VOLUME 96.8 FL (80.0-100.0); MEAN CORPUSCULAR HEMOGLOBIN 31.1 PG (27.0-34.0); MEAN CORPUSCULAR HGB CONC 32.1 % (32.0-36.0); MONO % 2.6 % (0.0-8.0); NEUT % 68.5 % (16.0-70.0); RED BLOOD COUNT 1.23 MIL/MM3 (4.50-5.90); RED CELL DISTRIBUTION WIDTH 15.3 % (11.6-17.2); WHITE BLOOD COUNT 5.4 TH/MM3 (4.0-11.0)
[2016-12-15 05:30] LABS: HEMO FLAGS AUTO DIFF
[2016-12-15 05:35] LABS: HEMATOCRIT 11.9 % (39.0-51.0); PLATELET COUNT 17 TH/MM3 (150-450)
[2016-12-15 06:03] LABS: CALCIUM-PROTEIN CORRECTED 9.1 MG/DL (8.5-10.1); MAGNESIUM 2.2 MG/DL (1.5-2.5)
[2016-12-15 06:04] LABS: BICARBONATE 8.1 MEQ/L (21.0-32.0); POTASSIUM 5.3 MEQ/L (3.5-5.1); TOTAL BILIRUBIN ADULT 2.8 MG/DL (0.2-1.0)
[2016-12-15] MEDS: DOPamine INJ PREMIX 500 ML IV SCH ×2 (06:14→13:02)
[2016-12-15] MEDS: PANTOPRAZOLE INJ 80 MG in SODIUM CHLORIDE 0.9% INJ 100 ML IV SCH ×2 (07:50→13:48)
[2016-12-15] MEDS: OCTREOTIDE INJ 500 MCG in SODIUM CHLORID 0.9% 500 ML INJ 500 ML IV SCH ×2 (07:52→17:26)
[2016-12-15 07:58] LABS: METAMYELOCYTES 26 % (0-1); MYELOCYTES 5 % (0-0)
[2016-12-15 08:02] LABS: BANDS 15 % (0-6); BLASTS 0 % (0-0); CORRECTED NUCLEATED RBC 3 /100 WBC (0-0); WBC DIFF SAMPLE 100
[2016-12-15 08:07] LABS: NEUTROPHIL # MANUAL DIFF 4.2 TH/MM3 (1.8-7.7); POLYS (SEG NEUTROPHILS) 31 % (16-70)
[2016-12-15 08:10] LABS: DOHLE BODIES PRESENT (NONE SEEN); PLATELET ESTIMATE SMEAR RARE (NORMAL); PLATELET MORPHOLOGY NORMAL (NORMAL); SCAN/DIFF FINAL DIFF MANUAL
[2016-12-15 08:48] LABS: INTERNATIONAL NORMALIZED RATIO 4.8 RATIO; PROTHROMBIN TIME - PATIENT 56.9 SEC (9.8-11.6)
[2016-12-15 08:50] LABS: APTT (PATIENT) GREATER THAN 277.5 SEC (24.3-30.1)
[2016-12-15] MEDS: SODIUM CHLORIDE 0.9% FLUSH 10 ML FLUSH IV FLUSH SCH (09:00)
[2016-12-15] MEDS: DOCUSATE SODIUM 50 MG/SENNA 8.6 MG TAB PO SCH (09:00)
[2016-12-15] MEDS ORDERED: MULTIVITAMIN INJ 10 ML, THIAMINE INJ 100 MG, FOLIC ACID INJ 1 MG in SODIUM CHLORID 0.9%... IV SCH (09:00)
--- NOTE | 2016-12-15 12:22 | HHI.CCPN ---
Subjective Remarks/Hospital Course 46 year old male. Date of admission 12/14/2016. Past medical history includes likely underlying hepatic cirrhosis, recurrent injury, history of bright red blood per rectum. He had an recent recent admission 12/02/2016 at [place] for upper GI bleed. Hemoglobin at discharge was 8.3. He received 3 units of Pack red blood cells and 2 FFP. He also had a paracentesis of 2.5 L. At that time patient had an upper endoscopy by Dr. Hilliard which revealed LA class a esophagitis, distal esophageal varix nonbleeding, severe portal gastropathy or deep bronchial mucosa normal.: Revealed internal and external hemorrhoids. Patient left [facility] 12/05/2016 According to mother Gisele, with just returned from [place] to see her son, patient was going today of abdominal pain. She had just returned from the start given ice pack when she was unable to contact her son in another room. She broke, down the door and noticed him lying unresponsive on the floor with blood from mouth. E VAC was called. Patient was in PEA and CPR was initiated 10 minutes. Patient was intubated with a Combitube and received CPR in route. Duration CPR greater than 30 minutes as received an additional 25 minutes at this facility. Patient received multiple rounds of epinephrine here in the ED. Hemoglobin post code was 2.8. ABG pH 6.66, PCO2 51, PO2 273, bicarbonate 6, base index -27. Patient received 4 units trauma blood, 2 FFP and 2 cryo-. Remains on dopamine at 20 mcg/kg/m and norepinephrine at 12 mg a minute. A left IJ central the ED physician was currently has a enlarging hematoma. Remainder labs including coags and BMP pending at time of dictation. On examination, patient is on no sedation but has pupils about 7 millimeters bilaterally and fixed. Negative doll's eyes. Not overbreathing the ventilator. Ordered patient is on Protonix and octreotide drip. 2 units FFP and cryoprecipitate yet to be transfused. Patient is acutely ill and likely nonsurvivable. GI as the thyroid the patient. Not a candidate for endoscopy at this time. Recommended consideration of Nolberto tube. Subjective 12/15: On 3 vasopressors. Unresponsive on the ventilator. Transfuse multiple blood products overnight. Continues to lose blood from multiple locations profusely Objective Vital Signs Date Time Temp Pulse Resp B/P Pulse Ox O2 Delivery O2 Flow Rate FiO2 12/15/16 11:00 47 16 61/30 12/15/16 08:00 100 12/15/16 07:56 90 12/14/16 18:02 Ventilator Intake and Output 12/14/16 12/14/16 12/15/16 08:00 16:00 00:00 Intake Total 2833 ml Balance 2833 ml Result Diagram: 12/15/16 0500 12/15/16 0500 Imaging Last Impressions Chest X-Ray 12/14/16 0000 Signed Impressions: Service Date/Time: Wednesday, December 14, 2016 20:39 - CONCLUSION: Second orogastric tube or nasogastric tube with the tip in the stomach. Slight increase in bilateral pulmonary opacity. Gray Mora MD Objective Remarks GENERAL: 46 show male critically ill currently in bed critically ill SKIN: Cool and dry. Jaundiced. Multiple tattoos bilateral lower extremities HEAD: Atraumatic. Normocephalic. Helmet in place EYES: Pupils equal and round about 7 mm bilaterally and nonreactive. Positive scleral icterus. As of scleral edema ENT: Positive nasal bleeding and oral bleeding. Mucous membranes actively oozing including nose and mouth. Nolberto tube in place football helmet NECK: Trachea midline. No JVD. Left IJ with large hematoma CARDIOVASCULAR: Regular rate and rhythm. 1, S2. No S4. No murmurs, clicks or gallops or rubs RESPIRATORY: Minutes breath sounds throughout.. GASTROINTESTINAL: Abdomen is increasingly distended, positive secession splash. No bowel sounds appreciated. MUSCULOSKELETAL: Extremities with 2+ edema. No obvious deformities. NEUROLOGICAL: Unresponsive on the ventilator on no sedation. No gag. No corneal reflex. No withdrawal to pain in all 4 extremities Urinary Catheter: Yes Assessment to: Continue Henderson insert reason: Prolonged Immobilization Vascular Central Line Catheter: Yes Date of Insertion: Dec 14, 2016 Line: Central Venous Catheter Side: Left Location: Internal, Jugular A/P Assessment and Plan Neuro/Psych: Likely anoxic encephalopathy. Propofol/fentanyl for sedation/analgesia while intubated. But not necessary currently Goal of RASS -2 Daily sedation vacation Not stable for CT head Placed on vitamin to bag daily for EtOH use CV: Hypovolemic shock secondary to acute hemorrhage Lactic acidosis Currently on dopamine at 20 mg/kg minutes/norepinephrine at 20 mg/m and epinephrine at 10 mcg/m for maintain MAP. See below hematology for blood transfusions Trend serial lactates. Elevated Resp: Acute hypoxemic respiratory failure PRVC 20/500/1.5/10/100 Ventilator bundle Duo nebs every 6 hours with albuterol every 2 hours when necessary dyspnea Hyperventilation in light of acute and get metabolic acidosis GI: Likely upper GI bleed LA class a esophagitis History of distal esophageal varix Severe portal gastropathy Internal and external hemorrhoids Likely liver cirrhosis Abdominal ascites Elevated transaminases Hypoalbuminemia Elevated total bilirubin OG tube to LIWS Currently in Protonix drip after 80 mg bolus at 8 mg an hour Octreotide at 50 mcg/hr GI has been consulted - Dr. Marroquin. Not a candidate for endoscopy this time Elevated transaminases shock liver. Overnight placed Nolberto tube : Henderson catheter has been placed for accurate I's and O's in a critically ill patient Endo: Sliding-scale insulin if indicated to maintain euglycemia/low regimen with every 6 hours Accu-Cheks TSH and cortisol pending Renal: Acute on Chronic kidney disease - likely hepatorenal syndrome and currently 3.6. Was 2.1 on discharge Currently no urine output Accurate I's and O's Heme: Acute post hemorrhagic anemia Coagulopathy - likely secondary underlying liver disease Hemoglobin 2.8 on admission. Received 21 units PRBCs, 10 FFP, 2 liquid plasma, 1 platelets and 3 cryo- INR 4.8. PTT greater than 277 Received 2500 K [facility]ra ordered Serial hemoglobins and coags ID: Prophylactic Rocephin in light of abdominal ascites and upper GI bleed MSK: PT evaluate and treat FEN: Chronic hyponatremia Hyperkalemia Hyponatremia Hyperphosphatemia BMP currently pending Access access - Left IJ CVL placed by ED physician 12/14 Prophylaxis - GI - Protonix drip - DVT - contraindicated pharmacological prophylaxis in light of acute upper GI hemorrhage Critical Care: The total critical care time was 35 minutes. Time to perform other separately billable procedures was not included in the critical care time. Discussed with mother Gisele. She is still waiting for her to arrive from [place]. Extremely poor prognostication outlook. She is aware. Accredited Farm Manager has given last rights.. Tyrel Flores MD Dec 15, 2016 12:22 Tyrel Flores MD Dec 15, 2016 12:22
--- NOTE | 2016-12-15 13:01 | HHI.GIFU ---
Subjective Remarks Pt intubated, on vent. (Myriam Kaur) Objective Vitals I&O Vital Signs Date Time Temp Pulse Resp B/P Pulse Ox O2 Delivery O2 Flow Rate FiO2 12/15/16 12:47 90 100 12/15/16 12:00 47 12/15/16 12:00 47 16 55/34 12/15/16 12:00 100 12/15/16 11:00 47 16 61/30 12/15/16 10:00 48 12/15/16 10:00 48 16 58/36 12/15/16 09:00 50 16 54/27 12/15/16 08:00 50 12/15/16 08:00 50 16 47/19 12/15/16 08:00 100 12/15/16 07:56 90 100 12/15/16 07:00 53 16 45/21 12/15/16 07:00 53 12/15/16 06:00 55 12/15/16 06:00 56 16 46/23 12/15/16 05:00 56 16 46/27 12/15/16 04:11 0 100 12/15/16 04:00 61 16 46/20 80 12/15/16 04:00 100 12/15/16 04:00 63 12/15/16 03:00 62 16 47/28 87 12/15/16 02:00 63 12/15/16 02:00 66 16 49/19 86 12/15/16 01:00 67 16 48/27 86 12/15/16 00:00 67 12/15/16 00:00 69 16 53/26 81 12/15/16 00:00 100 12/14/16 23:39 96 100 12/14/16 23:00 66 12/14/16 23:00 66 16 54/35 82 12/14/16 22:00 72 16 50/21 44 12/14/16 22:00 67 12/14/16 21:00 73 16 47/20 60 12/14/16 20:00 100 12/14/16 20:00 79 16 139/77 60 12/14/16 19:50 100 100 12/14/16 19:30 100 100 12/14/16 18:02 50 15 65/48 100 Ventilator 12/14/16 17:01 74 16 83/64 99 Ventilator 12/14/16 16:00 98 100 12/14/16 16:00 98 Ventilator 100 12/14/16 16:00 58 16 82/46 99 Ventilator 12/14/16 15:45 0 0 0/0 0 I/O 12/14/16 12/14/16 12/14/16 12/15/16 12/15/16 12/15/16 07:00 15:00 23:00 07:00 15:00 23:00 Intake Total 2833 ml 5110 ml Output Total 5000 ml Balance 2833 ml 110 ml Intake Oral 0 ml IV Total 2833 ml 3528 ml Packed Cells 785 ml FFP 797 ml Output Urine Total 0 ml Gastric Drainage Total 5000 ml Laboratory Laboratory Tests Test 12/14/16 12/14/16 12/14/16 12/14/16 15:45 16:36 19:24 20:09 White Blood Count 12.0 Red Blood Count 0.81 Hemoglobin 2.8 7.1 Hematocrit 9.6 22.5 Mean Corpuscular Volume 118.9 Mean Corpuscular Hemoglobin 34.6 Mean Corpuscular Hemoglobin 29.1 Concent Red Cell Distribution Width 23.2 Platelet Count 55 Mean Platelet Volume 10.3 Neutrophils (%) (Auto) 75.3 Lymphocytes (%) (Auto) 20.9 Monocytes (%) (Auto) 2.7 Eosinophils (%) (Auto) 0.6 Basophils (%) (Auto) 0.5 Neutrophils # (Auto) 9.0 Lymphocytes # (Auto) 2.5 Monocytes # (Auto) 0.3 Eosinophils # (Auto) 0.1 Basophils # (Auto) 0.1 CBC Comment AUTO DIFF Differential Total Cells 100 Counted Neutrophils % (Manual) 72 Band Neutrophils % 6 Lymphocytes % 7 Monocytes % 3 Eosinophils % 1 Neutrophils # (Manual) 10.7 Metamyelocytes 7 Myelocytes 4 Nucleated Red Blood Cells 6 Differential Comment FINAL DIFF MANUAL Platelet Estimate LOW Platelet Morphology Comment NORMAL Acanthocytes 1+ Keratocytes OCC Prothrombin Time 54.7 30.5 Prothromb Time International 4.6 2.6 Ratio Activated Partial GREATER THAN GREATER THAN Thromboplast Time 277.5 277.5 Fibrinogen 50 LESS THAN 50 Sodium Level 142 Potassium Level 5.6 5.9 Chloride Level 104 Carbon Dioxide Level 13.3 Anion Gap 25 Blood Urea Nitrogen 48 Creatinine 3.69 Estimat Glomerular Filtration 18 Rate Random Glucose 115 Calcium Level 7.3 Protein Corrected Calcium 10.2 Phosphorus Level 10.0 Magnesium Level 2.3 Total Bilirubin 6.5 Aspartate Amino Transf 92 (AST/SGOT) Alanine Aminotransferase 37 (ALT/SGPT) Alkaline Phosphatase 122 Total Protein 2.6 Albumin 0.9 Lipase 1039 Thyroid Stimulating Hormone 2.330 3rd Gen Ethyl Alcohol Level LESS THAN 3 Blood Type A POSITIVE Antibody Screen NEGATIVE Crossmatch Leukocyte-Reduced Red Blood Cells Blood Bank Comment Blood Gas Puncture Site RT FEMORAL LT RADIAL Blood Gas Patient Temperature 98.6 98.6 Blood Gas HCO3 6 6 Blood Gas Base Excess -27.0 -24.7 Blood Gas Oxygen Saturation 96 97 Arterial Blood pH 6.66 6.83 Arterial Blood Partial 51 39 Pressure CO2 Arterial Blood Partial 273 176 Pressure O2 Arterial Blood Oxygen Content 10.1 12.7 Arterial Blood 0.7 0.0 Carboxyhemoglobin Arterial Blood Methemoglobin 0.9 0.8 Blood Gas Hemoglobin 6.9 9.1 Oxygen Delivery Device VENTILATOR VENTILATOR Blood Gas Ventilator Setting 600/16/+5 PRVC/AC Blood Gas Inspired Oxygen 100 100 Test 12/14/16 12/14/16 12/14/16 12/14/16 20:30 20:41 20:42 20:49 Lactic Acid Level 18.5 Ammonia 953 Crossmatch Leukocyte-Reduced Red Blood Cells Blood Bank Comment Test 12/14/16 12/14/16 12/15/16 12/15/16 21:20 23:59 05:00 07:39 Nasal Screen MRSA (PCR) MRSA NOT DETECTED Lactic Acid Level 19.8 22.7 White Blood Count 5.4 Red Blood Count 1.23 Hemoglobin 3.8 Hematocrit 11.9 Mean Corpuscular Volume 96.8 Mean Corpuscular Hemoglobin 31.1 Mean Corpuscular Hemoglobin 32.1 Concent Red Cell Distribution Width 15.3 Platelet Count 17 Mean Platelet Volume 7.1 Neutrophils (%) (Auto) 68.5 Lymphocytes (%) (Auto) 28.1 Monocytes (%) (Auto) 2.6 Eosinophils (%) (Auto) 0.4 Basophils (%) (Auto) 0.4 Neutrophils # (Auto) 3.7 Lymphocytes # (Auto) 1.5 Monocytes # (Auto) 0.1 Eosinophils # (Auto) 0.0 Basophils # (Auto) 0.0 CBC Comment AUTO DIFF Differential Total Cells 100 Counted Neutrophils % (Manual) 31 Band Neutrophils % 15 Lymphocytes % 19 Monocytes % 4 Neutrophils # (Manual) 4.2 Metamyelocytes 26 Myelocytes 5 Nucleated Red Blood Cells 3 Differential Comment FINAL DIFF MANUAL Atypical Lymphocytes Blastocytes 0 Dohle Bodies PRESENT Platelet Estimate RARE Platelet Morphology Comment NORMAL Sodium Level 135 Potassium Level 5.3 Chloride Level 92 Carbon Dioxide Level 8.1 Anion Gap 35 Blood Urea Nitrogen 41 Creatinine 3.37 Estimat Glomerular Filtration 20 Rate Random Glucose 373 Calcium Level 6.0 Protein Corrected Calcium 9.1 Phosphorus Level 11.0 Magnesium Level 2.2 Total Bilirubin 2.8 Aspartate Amino Transf 1360 (AST/SGOT) Alanine Aminotransferase 330 (ALT/SGPT) Alkaline Phosphatase 48 Total Protein 1.7 Albumin 0.9 Blood Type A POSITIVE Crossmatch Leukocyte-Reduced Red Blood Cells Blood Bank Comment Test 12/15/16 12/15/16 07:57 08:00 Crossmatch Leukocyte-Reduced Red Blood Cells Blood Bank Comment Prothrombin Time 56.9 Prothromb Time International 4.8 Ratio Activated Partial GREATER THAN Thromboplast Time 277.5 Imaging Last Impressions Chest X-Ray 12/14/16 0000 Signed Impressions: Service Date/Time: Wednesday, December 14, 2016 20:39 - CONCLUSION: Second orogastric tube or nasogastric tube with the tip in the stomach. Slight increase in bilateral pulmonary opacity. 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 Pt was found down in puddle of bright red blood. EMS was called and he was found to be in asystole. ACLS protocol was initiated, he was intubated, and brought to the ER for further treatment. He received CPR for 10 minutes in field and 25 minutes here in the ER per the nurse. He was given 4 units of PRBC, 2 units of FFP, one unit of platelets, and 1 unit of pooled cryoprecipitate has been ordered. Labs after transfusion revealed HH 2.8/ 9.6. Additional 4 units of PRBC have been ordered. He is having large amount of bright red blood from OGT and rectally. Protonix and Octreotide gtt have been ordered. He has PT 54.7, INR 4.6, APTT pending. Plt are 55. Unfortunately, he is not stable for any endoscopic procedures at this time. He is hypotension and bradycardia, despite being maxed out on Levophed/ Dopamine. His HR is now in the 30's. We do not have his CMP resulted yet, but his other labs and clinical status is consistent with liver failure. His prognosis is poor and we are unable to perform any endoscopic treatment at this time secondary to medical condition - Liver failure/cirrhosis/recent alcoholic hepatitis. Pt with known cirrhosis. Tbil 2.8, AST 1360, ALT 330, ALP 48, ammonia 953 - Coagulopathy, Thrombocytopenia. platelets 17, PT 56.9, INR 4.8. fibrinogen < 50. 2 units of FFP, one unit of platelets, and 1 unit of pooled cryoprecipitate has been ordered - Ascites, massive. During recent hospitalization he had paracentesis (12/03/16)- ---> 2300cc of fluid removed. Final peritoneal fluid culture was negative. He was not able to be started on diuretics secondary to his ARF. He left [facility]. -Likely ARF/Hepatorenal - creatinine 3.37, BUN 41 - Portal gastropathy, Esophagitis. Protonix gtt/octreotide gtt ordered. - Asystole. Pt found down in puddle of bright red blood, large amount. He was in asystole at the time EMS arrived and ACLS was initiated. Nurse reports that he received 10 minutes in field and then another 25 minutes here in ER. Currently hypotensive, bradycardic. On dopamine, levophed. - Recent admission 12/02/16- 12/05/16 for gastrointestinal bleeding, liver cirrhosis with ascites, elevated LFTs/alcoholic hepatitis, acute kidney injury, anemia, and electrolyte abnormalities. He underwent a paracentesis on 12/03/16 and had 2300cc of fluid removed. He was given rocephin for empiric coverage and his fluid was sent. Final peritoneal fluid culture was negative. He was also evaluated with EGD/Colonoscopy (12/04/16)------> LA Class A esophagitis noted, portal hypertensive gastropathy was found in the gastric body, normal duodenal mucosa, retroflexed views revealed no abnormalities, colonic mucosa appeared normal, retroflexed views revealed internal and medium internal hemorrhoids, external hemorrhoids. He then left the hospital against medical advice on 12/05/16. PLAN: - NPO - NGT to LIWS - Protonix Gtt - Octreotide Gtt - Agree with transfusions - Monitor labs - Unfortunately, patient is in liver failure with massive GI bleeding and is not stable for any endoscopic procedures. He has a poor prognosis and will not likely survive. - Pt seen and examined by Dr. Marroquin and myself and this note is written on his behalf (Myriam Kaur) Physician Comments Patient seen and examined Agree with above Continue with current supportive care Monitor labs Discussed prognosis with biological father patient with very poor prognosis Would recommend comfort care at this point (Chris Marroquin MD) Myriam Kaur Dec 15, 2016 13:01 Chris Marroquin MD Dec 15, 2016 15:11
--- NOTE | 2016-12-15 13:30 | EKG ---
Date Performed: 12/14/2016 Time Performed: 16:59:16 PTAGE: 46 years EKG: Sinus rhythm MODERATE INTRAVENTRICULAR CONDUCTION DELAY MODERATE ST DEPRESSION PROLONGED QT INTERVAL ABNORMAL ECG INTERPRETATION BASED ON A DEFAULT AGE OF 40 YEARS NO PREVIOUS TRACING DOCTOR: Flip Ruvalcaba Interpretating Date/Time 12/15/2016 13:27:53
[2016-12-15] MEDS: VASOPRESSIN INJ 40 UNITS in DEXTROSE 5% IN WATER 100ML INJ 98 ML IV SCH ×2 (18:36)
[2016-12-15] MEDS: cefTRIAXone INJ 1,000 MG in SODIUM CHLORIDE 0.9% INJ 100 ML IV SCH (18:36)
[2016-12-15 18:45] LABS: MEAN CELL VOLUME 94.5 FL (80.0-100.0); MEAN CORPUSCULAR HEMOGLOBIN 29.8 PG (27.0-34.0); MEAN CORPUSCULAR HGB CONC 31.5 % (32.0-36.0); RED CELL DISTRIBUTION WIDTH 17.4 % (11.6-17.2); WHITE BLOOD COUNT 3.2 TH/MM3 (4.0-11.0)
[2016-12-15 18:46] LABS: HEMATOCRIT 5.2 % (39.0-51.0); HEMO FLAGS AUTO DIFF; RED BLOOD COUNT 0.55 MIL/MM3 (4.50-5.90)
[2016-12-15 18:47] LABS: PLATELET COUNT 8 TH/MM3 (150-450)
[2016-12-15 19:18] LABS: BICARBONATE 7.7 MEQ/L (21.0-32.0); POLYS (SEG NEUTROPHILS) 8 % (16-70); POTASSIUM 6.2 MEQ/L (3.5-5.1)
[2016-12-15 19:19] LABS: BANDS 14 % (0-6); CORRECTED NUCLEATED RBC 16 /100 WBC (0-0); METAMYELOCYTES 14 % (0-1); NEUTROPHIL # MANUAL DIFF 1.2 TH/MM3 (1.8-7.7); PLATELET ESTIMATE SMEAR RARE (NORMAL); PLATELET MORPHOLOGY NORMAL (NORMAL); SCAN/DIFF FINAL DIFF MANUAL; WBC DIFF SAMPLE 50
[2016-12-15 19:23] LABS: FIBRINOGEN 59 mg/dL (227-377); INTERNATIONAL NORMALIZED RATIO 2.3 RATIO; PROTHROMBIN TIME - PATIENT 26.1 SEC (9.8-11.6)
[2016-12-15 19:27] LABS: APTT (PATIENT) GREATER THAN 277.5 SEC (24.3-30.1)
[2016-12-15 19:38] LABS: CALCIUM-PROTEIN CORRECTED 9.2 MG/DL (8.5-10.1)
--- NOTE | 2016-12-20 09:29 | HHI.DS ---
Summary Note Date of : Dec 15, 2016 Time Of : 2038 Admission Date Dec 14, 2016 at 17:52 Admitting Diagnosis Acute posthemorrhagic blood loss anemia Diagnosis at Time of : (1) Coagulopathy ICD Code: D68.9 Diagnosis: Principal (2) Acute respiratory failure ICD Code: J96.00 Diagnosis: Principal (3) Lactic acidosis ICD Code: E87.2 Diagnosis: Principal (4) Thrombocytopenia ICD Code: D69.6 Diagnosis: Principal (5) Acute posthemorrhagic anemia ICD Code: D62 Diagnosis: Principal (6) GI bleed ICD Code: K92.2 Diagnosis: Principal (7) Liver failure ICD Code: K72.90 Diagnosis: Principal (8) Hyperkalemia ICD Code: E87.5 Diagnosis: Principal (9) Total bilirubin, elevated ICD Code: R17 Diagnosis: Principal (10) Hypoalbuminemia ICD Code: E88.09 Diagnosis: Principal (11) Cardiorespiratory arrest ICD Code: I46.9 Diagnosis: Principal (12) SIRS (systemic inflammatory response syndrome) ICD Code: R65.10 Diagnosis: Principal Procedures Nolberto Tube Brief History 46 year old male. Date of admission 12/14/2016. Past medical history includes likely underlying hepatic cirrhosis, recurrent injury, history of bright red blood per rectum. He had an recent recent admission 12/02/2016 at [place] for upper GI bleed. Hemoglobin at discharge was 8.3. He received 3 units of Pack red blood cells and 2 FFP. He also had a paracentesis of 2.5 L. At that time patient had an upper endoscopy by Dr. Hilliard which revealed LA class a esophagitis, distal esophageal varix nonbleeding, severe portal gastropathy or deep bronchial mucosa normal.: Revealed internal and external hemorrhoids. Patient left [facility] 12/05/2016 According to mother Gisele, with just returned from [place] to see her son, patient was going today of abdominal pain. She had just returned from the start given ice pack when she was unable to contact her son in another room. She broke, down the door and noticed him lying unresponsive on the floor with blood from mouth. E VAC was called. Patient was in PEA and CPR was initiated 10 minutes. Patient was intubated with a Combitube and received CPR in route. Duration CPR greater than 30 minutes as received an additional 25 minutes at this facility. Patient received multiple rounds of epinephrine here in the ED. Hemoglobin post code was 2.8. ABG pH 6.66, PCO2 51, PO2 273, bicarbonate 6, base index -27. Patient received 4 units trauma blood, 2 FFP and 2 cryo-. Remains on dopamine at 20 mcg/kg/m and norepinephrine at 12 mg a minute. A left IJ central the ED physician was currently has a enlarging hematoma. Remainder labs including coags and BMP pending at time of dictation. On examination, patient is on no sedation but has pupils about 7 millimeters bilaterally and fixed. Negative doll's eyes. Not overbreathing the ventilator. Ordered patient is on Protonix and octreotide drip. 2 units FFP and cryoprecipitate yet to be transfused. Patient is acutely ill and likely nonsurvivable. GI as the thyroid the patient. Not a candidate for endoscopy at this time. Recommended consideration of Nolberto tube. Significant Findings Multiple blood transfusions Imaging Last Impressions Chest X-Ray 12/14/16 0000 Signed Impressions: Service Date/Time: Wednesday, December 14, 2016 20:39 - CONCLUSION: Second orogastric tube or nasogastric tube with the tip in the stomach. Slight increase in bilateral pulmonary opacity. Gray Mora MD Hospital Course Neuro/Psych: Likely anoxic encephalopathy. Propofol/fentanyl for sedation/analgesia while intubated. But not necessary currently Goal of RASS -2 Daily sedation vacation Not stable for CT head Placed on vitamin to bag daily for EtOH use CV: Hypovolemic shock secondary to acute hemorrhage Lactic acidosis Currently on dopamine at 20 mg/kg minutes/norepinephrine at 20 mg/m and epinephrine at 10 mcg/m for maintain MAP. See below hematology for blood transfusions Trend serial lactates. Elevated Resp: Acute hypoxemic respiratory failure PRVC 20/500/1.5/10/100 Ventilator bundle Duo nebs every 6 hours with albuterol every 2 hours when necessary dyspnea Hyperventilation in light of acute and get metabolic acidosis GI: Likely upper GI bleed LA class a esophagitis History of distal esophageal varix Severe portal gastropathy Internal and external hemorrhoids Likely liver cirrhosis Abdominal ascites Elevated transaminases Hypoalbuminemia Elevated total bilirubin OG tube to LIWS Currently in Protonix drip after 80 mg bolus at 8 mg an hour Octreotide at 50 mcg/hr GI has been consulted - Dr. Marroquin. Not a candidate for endoscopy this time Elevated transaminases shock liver. Overnight placed Nolberto tube : Henderson catheter has been placed for accurate I's and O's in a critically ill patient Endo: Sliding-scale insulin if indicated to maintain euglycemia/low regimen with every 6 hours Accu-Cheks TSH and cortisol pending Renal: Acute on Chronic kidney disease - likely hepatorenal syndrome and currently 3.6. Was 2.1 on discharge Currently no urine output Accurate I's and O's Heme: Acute post hemorrhagic anemia Coagulopathy - likely secondary underlying liver disease Hemoglobin 2.8 on admission. Received 21 units PRBCs, 10 FFP, 2 liquid plasma, 1 platelets and 3 cryo- INR 4.8. PTT greater than 277 Received 2500 K [facility] ordered Serial hemoglobins and coags ID: Prophylactic Rocephin in light of abdominal ascites and upper GI bleed MSK: PT evaluate and treat FEN: Chronic hyponatremia Hyperkalemia Hyponatremia Hyperphosphatemia BMP currently pending Access access - Left IJ CVL placed by ED physician 12/14 Prophylaxis - GI - Protonix drip - DVT - contraindicated pharmacological prophylaxis in light of acute upper GI hemorrhage Critical Care: The total critical care time was 35 minutes. Time to perform other separately billable procedures was not included in the critical care time. Discussed with mother Gisele. She is still waiting for her to arrive from [place]. Extremely poor prognostication outlook. She is aware. has given last rights.. Tyrel Flores MD Dec 15, 2016 12:22 Addendum: Tyrel Flores MD on 12/15/16 @ 14:14 Discussed with mother, healthcare proxy. No more blood transfusions. Continue on ventilator on maximum support. She is aware that he will pass soon. Tyrel Flores MD Dec 20, 2016 09:29
== END 2016-12-15 20:39 | disposition expired | DRG 441 ==
LOC: NEPC 15:41 → NEDA 17:52 → HIME 19:45
PROVIDERS: ADMIT Internal Medicine Critical Care Medicine; ATTEND Internal Medicine Critical Care Medicine
PROC: 30233K1 Transfusion of Nonautologous Frozen Plasma into Peripheral Vein, Percutaneous Approach (ICD-10-PCS; principal; 2016-12-14)
PROC: 5A1935Z Respiratory Ventilation, Less than 24 Consecutive Hours (ICD-10-PCS; 2016-12-14)
PROC: 30233N1 Transfusion of Nonautologous Red Blood Cells into Peripheral Vein, Percutaneous Approach (ICD-10-PCS; 2016-12-14)
PROC: 30233R1 Transfusion of Nonautologous Platelets into Peripheral Vein, Percutaneous Approach (ICD-10-PCS; 2016-12-14)
PROC: 30233M1 Transfusion of Nonautologous Plasma Cryoprecipitate into Peripheral Vein, Percutaneous Approach (ICD-10-PCS; 2016-12-14)
PROC: 0BH17EZ Insertion of Endotracheal Airway into Trachea, Via Natural or Artificial Opening (ICD-10-PCS; 2016-12-14)
PROC: 05HN33Z Insertion of Infusion Device into Left Internal Jugular Vein, Percutaneous Approach (ICD-10-PCS; 2016-12-14)
DX: K72.90 Hepatic failure, unspecified without coma (principal); J96.01 Acute respiratory failure with hypoxia; I46.9 Cardiac arrest, cause unspecified; R57.1 Hypovolemic shock; K76.7 Hepatorenal syndrome; G93.1 Anoxic brain damage, not elsewhere classified; R65.10 Systemic inflammatory response syndrome (SIRS) of non-infectious origin without acute organ dysfunction; D68.9 Coagulation defect, unspecified; I85.00 Esophageal varices without bleeding; K92.2 Gastrointestinal hemorrhage, unspecified; E87.2 Acidosis; D62 Acute posthemorrhagic anemia; E87.1 Hypo-osmolality and hyponatremia; N17.9 Acute kidney failure, unspecified; I97.638 Postprocedural hematoma of a circulatory system organ or structure following other circulatory system procedure; D69.6 Thrombocytopenia, unspecified; E88.09 Other disorders of plasma-protein metabolism, not elsewhere classified; K70.31 Alcoholic cirrhosis of liver with ascites; K70.11 Alcoholic hepatitis with ascites; E87.5 Hyperkalemia; E83.39 Other disorders of phosphorus metabolism; K31.89 Other diseases of stomach and duodenum; K20.9 Esophagitis, unspecified; N18.9 Chronic kidney disease, unspecified; F17.210 Nicotine dependence, cigarettes, uncomplicated; R60.0 Localized edema; K64.4 Residual hemorrhoidal skin tags; K64.8 Other hemorrhoids
CPT/HCPCS: 31500; 36430; 36556; 36600; 71010; 80048; 80053; 80307; 82140; 82805; 83605; 83690; 83735; 84100; 84132; 84155; 84443; 85007; 85014; 85018; 85027; 85384; 85610; 85730; 86850; 86900; 86901; 86920; 86927; 86965; 87641; 92950; 93005; 94002; 94003; 94640; 94664; C9113; C9132; J0171; J0330; J0461; J0610; J0696; J1265; J2354; J3411; J3430; J7040; J7050; J7060; P9016; P9017; P9035; P9047